=== PATIENT | male | born 1930 | race Caucasian/White ===

== ENCOUNTER 2016-12-02 14:08 | Inpatient (IN) | payer MEDICARE, OTHER ==
[~2016-12-02] VITALS: Ht 182.9 cm; Wt 73.8 kg
[2016-12-02] VITALS (8 sets, daily range): BP systolic 113–169; BP diastolic 51–80; PULSE 67–126; RESP 18–30; O2SAT 88–98
[~2016-12-02 14:08] MED LIST: AMLO2.5T PO; B-CA1TAB PO; CARB1TAB14 PO; CEFU500T61 PO; ENTA200T6 PO; FERR324T2 PO; LACT-38 PO; LORA10CA PO; MEMA28CA PO; METO25TA99 PO; RIVA1PAT13 TRANSDERM; TAMS0.4C98 PO; WARF5TAB7 PO
--- NOTE | 2016-12-02 15:03 | ED.REPORT ---
HPI-General Illness Date of Service Dec 02, 2016 ED Provider: Dr. Razo Pt is an 86 year old male with a hx of dementia, Parkinson's, afib (not on Warfarin), HTN , CAD, and frequent UTI from catheter presenting to the ED via EMS complaining of worsening SOB onset at about 1100 this morning. His home caregiver went to his house today to change his Duval catheter and found him to be SOB with rhonchi. She also states that his urine was cloudy. Denies previous similar symptoms, chest pain, abdominal pain, or any other symptoms at this time. His daughter reports that he gets congested from his Parkinson's but it doesn't usually affect his breathing. He now feels a bit better after medics gave nebulizers with Solu-Medrol en route. Denies any recent falls, head trauma , or any other injury. His daughter states that he usually does have some confusion when he has a UTI. Nursing Notes Stated Complaint: NEW ONSET SHORTNESS OF BREATH Chief Complaint: Respiratory Distress Nursing Notes Reviewed: Yes Allergies: Coded Allergies: No Known Allergies (Unverified Allergy, Unknown, 07/22/15) Scheduled Amlodipine (Amlodipine) 2.5 Mg Tablet 2.5 MG PO DAILY Carbidopa/Levodopa 25-100 mg (Carbidopa/Levodopa 25-100 mg) 1 Each Tablet 1 TABLET PO BID in AM and 1400 Carbidopa/Levodopa 25-100 mg (Carbidopa/Levodopa 25-100 mg) 1 Each Tablet 2 TABLET PO daily at 1800 Entacapone (Entacapone) 200 Mg Tablet 200 MG PO BID AM and 1400 Finasteride (Finasteride) 5 Mg Tablet 5 MG PO DAILY Lactose-Free Food (Ensure Plus) 237 Ml Liquid 237 ML PO TID Memantine HCl (Namenda-XR) 28 Mg Cap.spr.24 28 MG PO QPM Metoprolol Succinate ER (Metoprolol Succinate ER) 25 Mg Tab.er.24h 25 MG PO QPM Quetiapine Fumarate (Seroquel) 25 Mg Tablet 75 MG PO HS Rivastigmine (Rivastigmine) 13.3 Mg/24 Hour Patch.td24 2 PATCH TRANSDERM DAILY Sennosides (Senna) 8.6 Mg Tablet 25.8 MG PO DAILY Scheduled PRN Oxybutynin Chloride ER (Oxybutynin Chloride ER) 5 Mg Tab.er.24 5 MG PO DAILY PRN PRN BLADDER SPASM General Time Seen by MD: 15:03 Chief Complaint Other (SOB) Hx Obtained From: Patient, Daughter, EMS Arrived By: Ambulance Sudden in Onset?: No Onset Occurred: 1 - 4 hours ago Symptom Duration: Since onset Severity: Current: No pain currently Severity: Maximum: No pain Recent Healthcare: No recent doctor visit, No recent hospitalization Similar Sx Previous: No Past Medical History Past Medical History Parkinson's disease History of aspiration pneumonia BPH Gout Reports: Coronary artery disease, Hypertension Reports: Atrial fibrillation, Dementia, Depression Past Surgical History Skin graft Reports: Cataract surgery, Tonsillectomy Smoking History Former Smoker Social History Lives with daughter and son in law Alcohol Use: "Social" Drug Use: Denies drug use Ambulatory Status Independent Review of Systems Cloudy urine Full Review of Systems Constitutional: Denies: Fever Respiratory: Reports: Shortness of breath Cardiovascular: Denies: Chest pain GI: Denies: Abdominal pain, Vomiting Complete sys rev & neg: except as marked. Physical Exam Nursing note and vitals reviewed. Constitutional: Well-developed, well-nourished. Not diaphoretic. Head: Normocephalic and atraumatic. Elderly somewhat ill appearing, sitting up in bed. No acute distress. Mouth/Throat: Oropharynx is clear, mucus membranes slightly dry. No oropharyngeal exudate. Eyes: EOM are normal. Pupils are equal, round, and reactive to light. Neck: Supple, no tracheal deviation. Cardiovascular: Normal rate, regular rhythm. Equal and intact distal pulses throughout. Pulmonary/Chest: Effort normal and breath sounds normal. No respiratory distress. Abdominal: Soft. No distension. There is no tenderness, rebound, or guarding. Bowel sounds present. Musculoskeletal: Range of motion grossly intact, moving all extremities. No peripheral edema or tenderness appreciated. Neurological: AOx1. Grossly nonfocal exam. Strength and sensation intact and equal to bilateral upper and lower extremities. Skin: Warm and dry, no rashes or pallor appreciated. Psychiatric: Appropriate mood and affect. Behavior appears normal. Vital Signs Vital Signs Date Time Temp Pulse Resp B/P Pulse Ox O2 Delivery O2 Flow Rate FiO2 12/02/16 17:14 77 24 117/68 97 Nasal Cannula 4 12/02/16 15:31 91 23 113/51 92 Simple Mask 3 12/02/16 14:18 37.6 126 30 169/80 88 Room Air Initial VS: Reviewed Interpretation & Diagnostics Lab Results Interpretation Result Diagram: 12/02/16 1514 12/02/16 1514 Test 12/02/16 14:29 12/02/16 14:39 12/02/16 15:14 12/02/16 15:57 Urine Color Yellow (YELLOW) Urine Appearance Cloudy (CLEAR,HAZY) Urine pH 6.0 (5.0-8.0) Urine Specific [place] 1.020 (1.003-1.035) Urine Protein 30mg/dL (NEG,TRACE) Urine Glucose (UA) Negativemg/dL (NEGATIVE) Urine Ketones Negativemg/dL (NEGATIVE) Urine Occult Blood Moderate (NEGATIVE) Urine Nitrite Positive (NEGATIVE) Urine Bilirubin Negative (NEGATIVE) Urine Urobilinogen Normalmg/dL (NORMAL) Urine Leukocyte Esterase Large (NEGATIVE) Urine RBC 3-10/hpf (0-2) Urine WBC >50/hpf (0-5) Urine Epithelial Cells Few/hpf (NONE-MOD) Urine Crystals None seen (NONE SEEN) Urine Bacteria Many/hpf (NONE-FEW) Urine Hyaline Casts None/lpf (NONE) Urine Granular Casts None seen (NONE SEEN) Urine Waxy Casts None seen (NONE SEEN) Urine Red Blood Cell Casts None seen (NONE SEEN) Urine White Blood Cell Casts None seen (NONE SEEN) Urine Mucus None seen (None Seen) Urine Trichomonas None seen (NONE SEEN) Urine Yeast None (NONE SEEN) Urinalysis Comment None Urine Culture Reflexed Indicated White Blood Count 5.3th/mm3 (3.8-10.1) Red Blood Count 3.83mil/mm3 (4.40-5.80) Hemoglobin 12.1g/dL (13.8-17.2) Hematocrit 36.0% (41.0-50.0) Mean Corpuscular Volume 94.0fL (81-100) Mean Corpuscular Hemoglobin 31.6pg (27.0-35.0) Mean Corpuscular Hemoglobin Concent 33.6% (32.0-37.0) Red Cell Distribution Width 13.8% (12.3-15.4) Platelet Count 228bil/L (150-400) Neutrophils (%) (Auto) 88.5% (40-74) Lymphocytes (%) (Auto) 6.4% (14-46) Monocytes (%) (Auto) 4.7% (4-12) Eosinophils (%) (Auto) 0.2% (0-5) Basophils (%) (Auto) 0% (0-3) Sodium Level 135mEq/L (134-144) Potassium Level 3.9mEq/L (3.5-5.2) Chloride Level 97mEq/L (97-108) Carbon Dioxide Level 20mmol/L (18-29) Blood Urea Nitrogen 20mg/dL (8-27) Creatinine 0.85mg/dL (0.76-1.27) Estimat Glomerular Filtration Rate 91mL/min (>59) Glucose Level 157mg/dL (60-99) Calcium Level 8.7mg/dL (8.5-10.1) Magnesium Level 1.7mg/dL (1.6-2.6) Total Bilirubin 0.8mg/dL (0.0-1.2) Aspartate Amino Transf (AST/SGOT) 13U/L (0-50) Alanine Aminotransferase (ALT/SGPT) 7U/L (0-44) Alkaline Phosphatase 75U/L (25-160) Troponin T < 0.010ug/L (0.0-0.011) Pro-B-Type Natriuretic Peptide 1980pg/mL (0-486) Total Protein 7.2g/dL (6.4-8.4) Albumin 3.1g/dL (3.4-5.0) Prealbumin 13mg/dL (20-40) Procalcitonin 0.68ng/mL (0.00-0.08) Prothrombin Time 13.0sec (8.1-12.5) Prothromb Time International Ratio 1.21ratio Activated Partial Thromboplast Time 28.2sec (22.8-33.0) ECG Interpretation ECG Interpretation: Afib. RBBB and LAFB. Inferior infarct, old. No significant change from previous. Otherwise as advertised. Time: 14:54 Interpreted by: ED physician Normal ECG Interpretation: Normal rate (89) ECG Interpretation: Afib. RBBB and LAFB. Inferior infarct, old. No significant change from previous. Otherwise as advertised. Time: 17:56 Interpreted by: ED physician Normal ECG Interpretation: Normal rate (84) Repeat ECG: Repeat ECG unchanged X-Ray Chest Interpretation Chest Xray Interpretation: IMPRESSION: No left hilar airspace disease is suspicious for pneumonia. There may be a trace left-sided pleural effusion and/or mild atelectasis. Dictated by: Iraj Albright M.D. on 12/02/2016 at 15:03 View: Portable, 1 view Interpretation / Wet Read by: Interpret - Radiologist Re-Eval/Medical Decision Med Decision/Clinical Course 86-year-old male presenting to the ED for evaluation of increasing dyspnea, concern for acting differently than normal. Grossly positive urine consistent with infection. Lactic acid of 3. WBC count normal although he does have a left shift. Initial Troponin negative. Chest x-ray demonstrates findings consistent with pneumonia. Patient started on antibiotics here in the emergency department, given IV fluids. I suspect that he is somewhat dehydrated as well. Plan admission for further evaluation and management. Time of Eval: 16:00 Patient Status: Condition improved Re-Evaluation/Progress Note: Discussed plan for admission. Pt understands and agrees with plan. Consultation : Referral / Consult Name: Jorge L Groves Consulted With: Hospitalist Call Returned at: 17:56 Depilatory Painter: Will see patient, Agrees with plan, Accepts admit Counseled Regarding: Diagnosis, Lab results, Need for follow-up, When/why to return to ED Discharge & Departure Primary Impression: Acute respiratory failure with hypoxia Additional Impressions: UTI (urinary tract infection) Pneumonia Disposition: ADMITTED TO HOSPITAL Discharge Condition All VS Reviewed: Yes Condition: Improved Referrals: Shayla Go (PCP) Kellie Attestation Portions of this note were transcribed by Erlinda Avilez. I, Dr. Razo personally performed the history, physical exam and medical decision-making; I reviewed and confirmed the accuracy of the information in the transcribed note. Signed by: Kellie Benz, 12/02/2016 at 2706. copies to: Shayla Go William B MD Dec 02, 2016 15:03 ERLINDA AVILEZ Dec 02, 2016 15:21
[2016-12-02 15:20] LABS: BASOPHILS % (AUTO) 0 % (0-3); EOSINOPHILS % (AUTO) 0.2 % (0-5); MONOCYTES % (AUTO) 4.7 % (4-12); Mean Corpuscular Hemoglobin 31.6 pg (27.0-35.0); NEUTROPHILS % (AUTO) 88.5 % (40-74); Platelet Count 228 bil/L (150-400)
[2016-12-02] MEDS ORDERED: 0.9% Sodium Chloride 500 ML IV ONE (15:26)
[2016-12-02 15:32] LABS: APPEARANCE,URINE CLOUDY (CLEAR,HAZY); COLOR,URINE YELLOW (YELLOW); OCCULT BLOOD,URINE MODERATE (NEGATIVE); UROBILINOGEN,URINE NORMAL (NORMAL)
[2016-12-02 15:42] LABS: TROPONIN T < 0.010 ug/L (0.0-0.011)
[2016-12-02 15:52] LABS: Magnesium 1.7 mg/dL (1.6-2.6)
--- NOTE | 2016-12-02 16:06 | DRSVH ---
PROCEDURE: X-RAY CHEST ONE VIEW, PORTABLE ([id number]) INDICATIONS: Respiratory distress TECHNIQUE: One view of the chest was acquired. COMPARISON: [facility], CR, XR CHEST 1VW (PORTABLE), 09/14/2015, 21:43. FINDINGS: Surgical changes and devices: None. Lungs and pleura: There has been interval development of prominent perihilar airspace disease. There may be mild left basilar atelectasis and/or small effusion. There is blunting of the left costophre amanda angle. Aeration of the right lung is within normal limits. Air under the diaphragm on the right is felt to be related to superimposed colon. There is mild scarring within the lung apices. Mediastinum: Mediastinal contours appear normal. Heart size is borderline enlarged. There is aorti c atherosclerosis. Bones and chest wall: No suspicious bony lesions. Degenerative changes of the imaged spine and shou lders are not well characterized, but appear similar to the previous exam. Overlying soft tissues ap pear unremarkable. IMPRESSION: No left hilar airspace disease is suspicious for pneumonia. There may be a trace left-si ded pleural effusion and/or mild atelectasis. Dictated by: Iraj Albright M.D. on 12/02/2016 at 15:03 Approved by: Iraj Albright M.D. on 12/02/2016 at 15:05
[2016-12-02] MEDS ORDERED: Levofloxacin 750 mg/150 mL D5W IV ONE (16:15)
[2016-12-02 16:23] LABS: INR 1.21 ratio
[2016-12-02] MEDS ORDERED: QUET25TA PO (18:57)
[2016-12-02] MEDS ORDERED: OXYB5TAB PO (18:57)
[2016-12-02] MEDS ORDERED: SENN-133 PO (18:57)
[2016-12-02] MEDS ORDERED: FINA5TAB9 PO (18:57)
--- NOTE | 2016-12-02 20:28 | PCM.HPMED ---
Subjective Date of Service Dec 02, 2016 Primary Provider: Admitting Physician: Jorge L Groves Primary Care Physician: Shayla Go Attending Physician: Jorge L Groves Admit Status: From the Emergency Department Chief Complaint: Shortness of breath, dyspnea, respiratory distress for 30 minutes prior to presenting to the ED today History of Present Illness: Pt is an pleasantly demented 86 Y/O M with a hx of dementia, Parkinson's, A-fib (not anticoagulated on Warfarin), HTN , CAD, and frequent UTI from indwelling Duval catheter, who presented to the ED with complaint of of acute onset SOB, dyspnea, respiratory distress onset at about 1100 this morning. His home caregiver went to his house today to change his Duval catheter and found that he became SOB while changing his Duval. She reportedly heard rhonchi on lung auscultation. This all occurred while patient was at rest. The diorama model maker also reported that the patient's urine was very cloudy. The patient and family members denies previous similar history of such respiratory symptoms. Patient denied, history of COPD, history of home oxygen use, history of asthma, fevers, chills, sweats, headache, sore throat, history of TB or family history of TB, recent travel, recent hospitalizations or nursing home facilities, chest pain , abdominal pain, constipation, diarrhea.His daughter Dary reports that he gets congested from his Parkinson's but it doesn't usually affect his breathing. Patient has a chronic cough productive of clear mucus, which has been his baseline for quite some time. He now feels a bit better after medics gave nebulizers with Solu-Medrol en route. Denies any recent falls, head trauma, or any other injury. His daughter states that he usually does have some confusion when he has a UTI. Of note patient was hospitalized with pneumonia approximately 6 months ago. He sleeps at 35 angle with head of bed elevated. He describes it being hard to breathe if he lays down. But denies paroxysmal nocturnal dyspnea. In the ED patient was diagnosed with pneumonia and urinary tract infection, and was placed on levofloxacin 750 mg IV once, CXR: New left hilar airspace disease is suspicious for pneumonia. There may be a trace left-sided pleural effusion and/or mild atelectasis. Vital signs on presentation in the ED: Temperature 37.6, pulse 126, respiratory rate 30, blood pressure 169/80, pulse ox 88% on room air. Current vitals are temperature 36.6, pulse 83, respiratory rate 22, blood pressure 126/67, satting 90% on 3 L nasal cannula Hemogram showed: WBC 5.3, PMNs 88.5%, lymphs 6.4%, H/H 12.1/36.0, MCV 94, MCH 31.6, MCHC 33.6, platelets 228 PT/INR 13.0/1.21 UA was positive for leukocyte esterase, nitrite, bacteria, and white blood cells greater than 50 per high-power field Review of Systems: A comprehensive review of systems was conducted and was negative except as mentioned in history of present illness. Allergies Coded Allergies: No Known Allergies (Unverified Allergy, Unknown, 07/22/15) Home Medications Amlodipine (Amlodipine) 2.5 Mg Tablet 2.5 MG PO DAILY B-Carotene/C/E/Lut/Mn Cmb 29 (Macuvite with Lutein Tablet) 1 Each Tablet 1 EACH PO DAILY Carbidopa/Levodopa 25-100 mg (Carbidopa/Levodopa 25-100 mg) 1 Each Tablet 1 TABLET PO BID in AM and 1400 Carbidopa/Levodopa 25-100 mg (Carbidopa/Levodopa 25-100 mg) 1 Each Tablet 2 TABLET PO daily at 1800 Cefuroxime Axetil (Cefuroxime) 500 Mg Tablet 500 MG PO BID Entacapone (Entacapone) 200 Mg Tablet 200 MG PO BID AM and 1400 Ferrous Sulfate (Ferrous Sulfate) 324 Mg Tablet.dr 324 MG PO DAILY Lactose-Free Food (Ensure Plus) 237 Ml Liquid 237 ML PO TID Loratadine (Claritin) 10 Mg Capsule 10 MG PO daily at 1400 Memantine HCl (Namenda-XR) 28 Mg Cap.spr.24 28 MG PO QPM Metoprolol Succinate ER (Metoprolol Succinate ER) 25 Mg Tab.er.24h 25 MG PO QPM Rivastigmine (Rivastigmine) 13.3 Mg/24 Hour Patch.td24 2 PATCH TRANSDERM DAILY Tamsulosin (Flomax) 0.4 Mg Capsule 0.4 MG PO DAILY Oxybutynin Quetiapine PMH Parkinson's disease History of aspiration pneumonia BPH Gout Coronary artery disease, Hypertension Atrial fibrillation, Dementia, Depression Surgical History Skin graft Reports: Cataract surgery, Tonsillectomy Family History Brother with Parkinson's disease Social History Hx Alcohol Use: Yes (occasional, not current) Hx Substance Use: No Hx Tobacco Use: No Smoking Status: Former Smoker (smoked for 25 years) Living Arrangement: with Family (lives with daughter Ivana and his son-in-law Rao [phone]) Exam Vital Signs Vital Sign - Last Date Time Temp Pulse Resp B/P Pulse Ox O2 Delivery O2 Flow Rate FiO2 12/02/16 19:52 36.6 83 22 126/67 98 Nasal Cannula 3.00 Exam General: Patient appears age-appropriate, in no acute distress, resting comfortably in bed, able to answer questions appropriately. Is mildly demented HEENT: NC/AT, eyes pinpoint pupil, PERRLA, EOMI, neck, soft supple, no adenopathy, no JVD, no masses, no thyromegaly, throat mucous membranes pink and Dry, no erythema, no exudates, no tonsillar swelling, no uvular deviation. Edentulous upper and lower Lungs: Bilateral lower base crackles, severe rhonchi heard diffusely, no use of accessory muscles of respiration, moderate air movement Heart: Regular rate and rhythm, no murmur, Abdomen: Soft, nontender, nondistended, bowel sounds active, no rebound, no guarding, Genitourinary: No CVA tenderness, no suprapubic tenderness, Duval catheter in place and draining very dark colored urine, Extremities: pulses equal and symmetric upper/lower extremity including radial and dorsalis pedis, no edema Neurologic: Appears grossly neurologically intact, no focal neurological signs. Skin: Dry and appears mildly dehydrated with tenting and no rash Lab and Diagnostics Result Diagram: 12/02/16 1514 12/02/16 1514 X-Rays, CTs and MRIs Date of Service: 12/02/16 1435 PROCEDURE: X-RAY CHEST ONE VIEW, PORTABLE Surgical changes and devices: None. Lungs and pleura: There has been interval development of prominent perihilar airspace disease. There may be mild left basilar atelectasis and/or small effusion. There is blunting of the left costophrenic angle. Aeration of the right lung is within normal limits. Air under the diaphragm on the right is felt to be related to superimposed colon. There is mild scarring within the lung apices. Mediastinum: Mediastinal contours appear normal. Heart size is borderline enlarged. There is aortic atherosclerosis. Bones and chest wall: No suspicious bony lesions. Degenerative changes of the imaged spine and shoulders are not well characterized, but appear similar to the previous exam. Overlying soft tissues appear unremarkable. IMPRESSION: No left hilar airspace disease is suspicious for pneumonia. There may be a trace left-sided pleural effusion and/or mild atelectasis. Dictated by: Iraj Albright M.D. on 12/02/2016 at 15:03 Approved by: Iraj Albright M.D. on 12/02/2016 at 15:0 Assessment & Plan This is a pleasant 86-year-old male with history of dementia, Parkinson's disease and A. fib not on warfarin with frequent UTIs and indwelling catheter who presented to the ED with acute onset shortness of breath dyspnea and respiratory distress that lasted approximately 30 minutes to an hour and improved with nebulizer therapy and Solu-Medrol. She was found to have UTI and chest x-ray suspicious for pneumonia. Patient was admitted for IV antibiotics and medical management. Current vitals are temperature 36.6, pulse 83, respiratory rate 22, blood pressure 126/67, satting 90% on 3 L nasal cannula # Acute respiratory distress with hypoxia, present on admission, improved - Patient currently satting in the upper 90s on 3 L nasal cannula - Temperature 37.6, pulse 126, respiratory rate 30, blood pressure 169/80, pulse ox 88% on room air. - O2 to keep oxygen at 93% or above, patient has no history of COPD - Albuterol nebs every 4 hours while awake. - Mucinex expectorant #severe sepsis, POA -RR30, HR 126 on arrival -lactic acid 4 -secondary to UTI / pna treat as below # Pneumonia, community-acquired, present on admission, active -CXR: New left hilar airspace disease is suspicious for pneumonia (reviewed by admitting team). There may be a trace left-sided pleural effusion and/or mild atelectasis. -Hemogram showed: WBC 5.3, PMNs 88.5%, lymphs 6.4%, H/H 12.1/36.0, MCV 94, MCH 31.6, MCHC 33.6, platelets 228 -We will order CBC with Diff, CMP, AM draw -Sputum ordered and pending -Blood Cx X 2 -Procalcitonin -Levoquin 750 mg daily -Acetominophen for Fever control -Legionella urine antigen, and Strep pneumonia urine antigen -Viral PCR (biofire) -MRSA screen ordered and pending -Influenzae A/B -Mucinex # Elevated Lactic acid, active - Lactate 4.4 - IV normal saline at 100 mL per hour - We will trend lactic acid every 2 hours till normal - Blood cultures ordered and pending 2 # Dehydration, present on admission, active - Mucous membranes are very dry on exam - We will start IV fluids at 100 mL per hour - Family members deny any known history of CHF # Urinary tract infection, present on admission, active - UA was positive for leukocyte esterase, nitrite, bacteria, and white blood cells greater than 50 per high-power field - Patient has indwelling Duval catheter is changed weekly by home health nurse -We will continue medication levofloxacin was started in the ED as previously stated # Anemia, normocytic normochromic, present on admission, active -H/H.1/36.0 #Hyperglycemia, present on admission, active - Blood glucose 157 - Hemoglobin A1c ordered and pending Chronic problems Parkinson's disease - We will continue home Parkinson's medication - History of aspiration pneumonia - We will get speech, OT and swallow eval's -Current diet Pureed BPH - Indwelling Duval catheter changed weekly - Hold oxybutynin for now - Continue home medication tamsulosin 0.4 mg Gout, presumed stable Coronary artery disease, presumed stable Hypertension - We will continue metoprolol ER 25 mg daily Atrial fibrillation, - We will continue metoprolol ER 25 mg daily - Remote telemetry Dementia, presumed stable Depression, presumed stable - We will continue home medication quetiapine Disposition: Admitted to in patient service with expected length of stay greater than 2 days, secondary to severity of presenting symptoms, treatment plan, complexity of clinical work up, and risk of adverse events. CODE STATUS: DNR/DNI PCP: Shayla Go DVT PE prophylaxis: SubQ heparin Q8H Contact: Prem DYE [phone]--> to Rao son-in-law Daughter [phone] VTE Prophylaxis: Sub-Q Heparin (Unfractionated) Resuscitation Status: DNR/DNI:Do Not Resuscitate/Intubate Attending Statement The patient was seen and examined together with house staff on 12/02/2016 and I agree with the history, exam and plan as outlined in the note above. Bob Quiñones DO Dec 02, 2016 20:28 Erin Chau DO Dec 03, 2016 05:10
[2016-12-02] MEDS ORDERED: Polyethylene Glycol (PEG) 17 Gm Powder PO PRN (20:30)
[2016-12-02] MEDS ORDERED: Alum-Mag Hydrox-Simeth 30 mL Suspension PO PRN (20:30)
--- NOTE | 2016-12-02 21:30 | NUR ---
admit note Pt is admitted to room 3011 around 19:30 from ED for UTI/PNA/acute hypoxic respiratory syndrome, accompanied by his daughter, Dary. Pt is alert, oriented to self only. Forgetful and intermittently confused per daughter. Pt has intermittent, productive, and congested cough with yellow thick phlegm; sputum sample sent to the lab. SpO2 in high 90s on 3L, denies SOB. 2PA to BSC; unsteady gait due to parkinson's disease. Pt has dysphagia and normally drinks thickened liquid. took meds whole in apple sauce. tolerated well. given thickened water but gulped a big amount and coughed. Pt tolerated thickened liquid given on a spoon. Resident in to see the patient. Dary Guallpa answered admit questions. aletha bed alarm on for safety.
[2016-12-02] MEDS: MEMANTINE 28 MG PO SCH (21:34)
[2016-12-02] MEDS: Albuterol-Ipratropium 3 mL Inhalation Solution NEB SCH (21:53)
--- NOTE | 2016-12-02 22:42 | NUR ---
Code status Pt's daughter and POA, Ivana called this RN and said that she has talked to her sisters about pt's code status and concurred that pt will be DNR/DNI. Dr. Quiñones was notified.
[2016-12-02] MEDS: MeTOProlol XL 25 mg ER24 Tablet PO SCH (22:52)
[2016-12-03] VITALS (13 sets, daily range): BP systolic 109–134; BP diastolic 55–77; PULSE 58–86; RESP 18–24; O2SAT 91–99
[2016-12-03] MEDS: Heparin 5,000 Unit/mL Inj SUBQ SCH ×3 (00:21→17:22)
[2016-12-03] MEDS: 0.9% Sodium Chloride 1,000 ML IV SCH ×3 (00:21→20:29)
--- NOTE | 2016-12-03 01:28 | NUR ---
vincent/skin HH RN didn't get to change pt's vincent due to SOB today. pt has 22Fr silicone vincent catheter. vincent was changed with same size, silicone catheter; pt tolerated procedure well. vincent draining yellow, cloudy urine. noted 3 open areas to R buttock. Daughter stated that they have been putting cream on them since dressing is contraindicated due to pt being incontinent of stool at times. Pressure ulcer protocol is initiated. Pt is turned Q2hrs. calmoseptine applied to R buttock. on SANIYA bed.
[2016-12-03 06:43] LABS: BASOPHILS % (AUTO) 0 % (0-3); EOSINOPHILS % (AUTO) 0 % (0-5); MONOCYTES % (AUTO) 4.7 % (4-12); Mean Corpuscular Hemoglobin 31.3 pg (27.0-35.0); Mean Corpuscular Volume 93.2 fL (81-100); NEUTROPHILS % (AUTO) 91.5 % (40-74); Platelet Count 209 bil/L (150-400)
[2016-12-03] MEDS: Albuterol-Ipratropium 3 mL Inhalation Solution NEB SCH ×4 (07:42→20:35)
[2016-12-03] MEDS ORDERED: levoFLOXacin Inj 750 MG in IV Premix 1 EACH IV SCH ×2 (08:30→14:30)
[2016-12-03] MEDS: Piperacillin-Tazo 3.375 Gm Inj 3.375 GM in Dextrose 5% Minibag Plus 50 ML IV SCH ×2 (09:16→17:17)
[2016-12-03] MEDS: RIVASTIGMINE 13.3 MG/24 HR TOPICAL SCH (09:19)
--- NOTE | 2016-12-03 09:30 | NUR ---
O2 Pt resting quietly, sts is "drowsy" when asked. O2 sats are 99% on 1 L. O2 removed, pt sating 97% on RA. Encouraged to deep breathe and cough at time of assessment. Productive cough when sitting up however pt swallowing sputum. HOB upright for meds in sauce, Call light in place, will continue to monitor.
[2016-12-03] MEDS: Entacapone 200 mg Tablet PO SCH ×2 (10:20→17:17)
--- NOTE | 2016-12-03 11:38 | NUR ---
Home Meds Home medication brought in by Dary (daughter). Taken to pharmacy, verified and placed in med drawer outside room. Daughter is visiting at bedside, call light in place, will continue to monitor.
--- NOTE | 2016-12-03 13:25 | PCM.PNMED ---
Subjective Date of Service Dec 03, 2016 Subjective Patient seen and examined today. Lying comfortably in bed. Saturating well on nasal canula. Vitals stable. Exam Vital Signs Vital Sign - Last Date Time Temp Pulse Resp B/P Pulse Ox O2 Delivery O2 Flow Rate FiO2 12/03/16 11:20 63 18 95 Room Air 12/03/16 10:05 36.2 127/77 12/03/16 07:40 1.00 Intake and Output 12/02/16 12/02/16 12/03/16 Cumulative From/Thru 15:00 23:00 07:00 12/02/16 14:18 - 12/03/16 06:43 Intake Total 100 ml 550 ml 592 ml 1242 ml Output Total 2050 ml 2050 ml Balance 100 ml 550 ml -1458 ml -808 ml Intake Oral 0 ml 0 ml IV Total 100 ml 550 ml 592 ml 1242 ml Output Urine Total 2050 ml 2050 ml # Bowel Movements 0 0 Exam General: Patient appears age-appropriate, in no acute distress, resting comfortably in bed, able to answer questions appropriately. Is mildly demented HEENT: NC/AT, eyes pinpoint pupil, PERRLA, EOMI, neck, soft supple, no adenopathy, no JVD, no masses, no thyromegaly, throat mucous membranes pink and Dry, no erythema, no exudates, no tonsillar swelling, no uvular deviation. Edentulous upper and lower Lungs: Bilateral lower base crackles, severe rhonchi heard diffusely, no use of accessory muscles of respiration, moderate air movement Heart: Regular rate and rhythm, no murmur, Abdomen: Soft, nontender, nondistended, bowel sounds active, no rebound, no guarding, Genitourinary: No CVA tenderness, no suprapubic tenderness, Duval catheter in place and draining very dark colored urine, Extremities: pulses equal and symmetric upper/lower extremity including radial and dorsalis pedis, no edema Neurologic: Appears grossly neurologically intact, no focal neurological signs. Skin: Dry and appears mildly dehydrated with tenting and no rash Lab and Diagnostics Result Diagram: 12/03/16 0628 12/03/16 0628 X-Rays, CTs and MRIs Date of Service: 12/02/16 1435 PROCEDURE: X-RAY CHEST ONE VIEW, PORTABLE Surgical changes and devices: None. Lungs and pleura: There has been interval development of prominent perihilar airspace disease. There may be mild left basilar atelectasis and/or small effusion. There is blunting of the left costophrenic angle. Aeration of the right lung is within normal limits. Air under the diaphragm on the right is felt to be related to superimposed colon. There is mild scarring within the lung apices. Mediastinum: Mediastinal contours appear normal. Heart size is borderline enlarged. There is aortic atherosclerosis. Bones and chest wall: No suspicious bony lesions. Degenerative changes of the imaged spine and shoulders are not well characterized, but appear similar to the previous exam. Overlying soft tissues appear unremarkable. IMPRESSION: No left hilar airspace disease is suspicious for pneumonia. There may be a trace left-sided pleural effusion and/or mild atelectasis. Dictated by: Iraj Albright M.D. on 12/02/2016 at 15:03 Approved by: Iraj Albright M.D. on 12/02/2016 at 15:0 Assessment & Plan This is a pleasant 86-year-old male with history of dementia, Parkinson's disease and A. fib not on warfarin with frequent UTIs and indwelling catheter who presented to the ED with acute onset shortness of breath dyspnea and respiratory distress that lasted approximately 30 minutes to an hour and improved with nebulizer therapy and Solu-Medrol. She was found to have UTI and chest x-ray suspicious for pneumonia. Patient was admitted for IV antibiotics and medical management. # Acute respiratory distress with hypoxia, present on admission, improved - Patient currently satting in the upper 90s on 3 L nasal cannula - O2 to keep oxygen at 93% or above, patient has no history of COPD - Albuterol nebs every 4 hours while awake. - Mucinex expectorant #severe sepsis, POA -RR30, HR 126 on arrival -lactic acid 4.4>2.3 -secondary to UTI / pna treat as below # Pneumonia, community-acquired, present on admission, active -CXR: New left hilar airspace disease is suspicious for pneumonia (reviewed by admitting team). There may be a trace left-sided pleural effusion and/or mild atelectasis. -Elevatd white count12.7 -Sputum ordered and pending -Blood Cx X 2 -Procalcitonin 7.94 -Levoquin 750 mg given at admission along with Zosyn. Zosyn coverage is broader and covers the same spectrum as levoquin. Will continue Zosyn. -awaiting MRSA swab, if positive will start vancomycin -Acetominophen for Fever control -Legionella urine antigen, and Strep pneumonia urine antigen -Viral PCR (biofire) -Influenzae A/B -Mucinex # Elevated Lactic acid, at admission, normalized - Lactate 4.4 at admission - IV normal saline at 100 mL per hour - Blood cultures ordered and pending 2 # Dehydration, present on admission, active - Mucous membranes are very dry on exam - We will start IV fluids at 100 mL per hour - Family members deny any known history of CHF # Urinary tract infection, present on admission, active - UA was positive for leukocyte esterase, nitrite, bacteria, and white blood cells greater than 50 per high-power field - Patient has indwelling Duval catheter is changed weekly by home health nurse - will continue zosyn # Anemia, normocytic normochromic, present on admission, active -H/H.1/36.0 #Hyperglycemia, present on admission, active - Blood glucose 157 - Hemoglobin A1c ordered and pending Chronic problems Parkinson's disease - We will continue home Parkinson's medication - History of aspiration pneumonia - We will get speech, OT and swallow eval's -Current diet Pureed BPH - Indwelling Duval catheter changed weekly - Hold oxybutynin for now - Continue home medication tamsulosin 0.4 mg Gout, presumed stable Coronary artery disease, presumed stable Hypertension - We will continue metoprolol ER 25 mg daily Atrial fibrillation, - We will continue metoprolol ER 25 mg daily - Remote telemetry Dementia, presumed stable Depression, presumed stable - We will continue home medication quetiapine Disposition: Admitted to in patient service with expected length of stay greater than 2 days, secondary to severity of presenting symptoms, treatment plan, complexity of clinical work up, and risk of adverse events. CODE STATUS: DNR/DNI PCP: Shayla Go DVT PE prophylaxis: SubQ heparin Q8H Contact: Prem DYE [phone]--> to Rao son-in-law Daughter [phone] VTE Prophylaxis: Sub-Q Heparin (Unfractionated) Resuscitation Status: DNR/DNI:Do Not Resuscitate/Intubate Time spent 60mins Lars Barr MD Dec 03, 2016 13:25
--- NOTE | 2016-12-03 15:23 | NUR ---
Social Work-initial assessment: Data:See initial assessment. Pt is 86 y/o male who was admitted for acute hypoxic per H&P. Pt's insurance is [employer] and [employer] and PCP is KRIS Patterson. EMR reviewed. JOSUE placed a call to daughter Ivana and spoke with daughter Dary,JOSUE role explained. Pt resides at home with Ivana and her who provide 24/7 care. Pt uses a fww at baseline and does not drive. Pt has vincent catheter at baseline. Pt is currently open with [facility] for RN and JOSUE DESAI to await MD orders to contact services. Pt has no SNF history. Pt has no intermediate manager care insurance or VA benefits. Pt has completed DPOA/ advanced directive, JOSUE encouraged a copy to be brought in. JOSUE left copy of Discharge planning checklist in room. Phone number placed on white board in room. Pt's daughters to provide transport home. JOSUE will continue to follow. Assessment:Pt who would benefit from . Plan:Pt to discharge home with family to provide 24/7 care when medically stable via POV. Pt is open with JOSUE Noel to await MD orders to contact [facility]. JOSUE will continue to follow. NAVIN Coronado Addendum: 12/03/16 at 1528 by DAMARIS BHAT Amended: Links added.
--- NOTE | 2016-12-03 17:44 | NUR ---
PO intake/O2 Pt has rested quietly through out the day, declined lunch stating was "just too tired". Consumed pudding for afternoon snack. Did consume dinner however was encouraged to eat as pt was not wanting to "eat much". Pt requests thickened water quite often however does cough afterwards. Pt is able to clear oral cavity afterwards by spitting out what appears to be sputum. Pt has remained on RA, stating 96 to 98%. Sats seem to decrease to 93 % when sitting bolt upright however when HOB is lowered slightly, sats recover quickly to the mid to upper 90s. Call light in place with intentional rounding.
--- NOTE | 2016-12-03 18:16 | NUR ---
Transfer of care This RN inherited pt at 1800. Pt denies pain. Receiving IV abx PEEWEE. Pt on continuous pulse ox, sating 88-92% on RA. Pt placed back on 0.5L of O2 via NC. Bed in low position ,upper rails up, call light in reach. Will continue to monitor.
[2016-12-03] MEDS: MEMANTINE 28 MG PO SCH (20:21)
[2016-12-03] MEDS: MeTOProlol XL 25 mg ER24 Tablet PO SCH (20:22)
[2016-12-04] VITALS (12 sets, daily range): BP systolic 125–163; BP diastolic 61–78; PULSE 72–97; RESP 16–20; O2SAT 91–99
[2016-12-04] MEDS: Heparin 5,000 Unit/mL Inj SUBQ SCH ×3 (00:36→17:25)
[2016-12-04] MEDS: 0.9% Sodium Chloride 1,000 ML IV SCH ×3 (00:36→21:59)
[2016-12-04] MEDS: Piperacillin-Tazo 3.375 Gm Inj 3.375 GM in Dextrose 5% Minibag Plus 50 ML IV SCH ×3 (00:36→17:24)
[2016-12-04 05:50] LABS: BASOPHILS % (AUTO) 0 % (0-3); EOSINOPHILS % (AUTO) 0.1 % (0-5); MONOCYTES % (AUTO) 6.8 % (4-12); Mean Corpuscular Hemoglobin 31.2 pg (27.0-35.0); Platelet Count 230 bil/L (150-400)
--- NOTE | 2016-12-04 06:33 | NUR ---
Confusion Patient slept most of the night. Went to bed confused over place, location, and time. using call light frequently to ask, "what time is it?" "where is estuardo?". Patient awoke the AM. confusing. states "my phone keeps ringing, will you answer my phone." Phone was not ringing. placed phone closer to patient. patient began pushing buttons on the phone and would not hang it up, states "its broken". reoriented patient to place and time and reassured him that [address] to early to get a phone call and to call family everyone is sleeping at this hour. Patient continues to insist phone keeps ringing. removed phone from patients bedside table. patient observed sleeping, will continue to monitor.
[2016-12-04] MEDS: Albuterol-Ipratropium 3 mL Inhalation Solution NEB SCH ×4 (08:03→20:54)
[2016-12-04] MEDS: RIVASTIGMINE 13.3 MG/24 HR TOPICAL SCH (08:47)
--- NOTE | 2016-12-04 09:39 | NUR ---
Wound note Pressure ulcer protocol order received, patient seen at bedside. Pleasant, conversant 86 yo male admitted to [facility] with UTI/PNA/acute hypoxic respiratory syndrome. At baseline patient apparently walks with a FW walker. He needs significant assistance to turn in bed. He is on a low airloss bed and presents with 2 small stage 2 PI's (POA) in the crease of his buttocks at the sacral level. The more superior of the ulcers is 0.3 cm L x 0.3 cm W x 0.1 cm deep, no tunneling or undermining, scant serous drainage, no erythema. The inferior ulcer is linear in nature 1.2 cm L x 0.2 cm W x 0.1 cm D, no tunneling or undermining, scant serous drainage, no erythema. Both ulcers are cleaned with shield wipe and a mepilex dressing was placed, patient does have some excoriation with small openings at his testicles these are currently treated with calmoseptine which is appropriate and should be continued. Recommend frequent repositioning and mepilex foam dressing to be changed PRN by nursing.
--- NOTE | 2016-12-04 10:11 | NUR ---
Social Work-readiness for discharge: Data:EMR Reviewed. P tis on day 2 of hospitalization for resp per H&P. Pt is not medically stable anticipate 1-2 more days. Pt resides at home with daughter and son in law who provide 24/7 care. order received for resume HH. [phone] and informed him of pt's admission. Donato confirms they are open on services. JOSUE provided access in [employer]. Pt will need resume HH orders at discharge. Pt's family to provide transport home at discharge. SW will continue to follow. Assessment:pt who is independent at baseline. Plan:Pt to discharge home when medically stable with family to provide 24/7 care. Pt will need resume HH orders through [facility] at discharge. JOSUE will continue to follow. NAVIN Coronado Addendum: 12/04/16 at 1123 by DAMARIS BHAT JOSUE confirmed with Donato Sorto that pt is open with RN and RADIOLOGY SCHEDULER services. NAVIN Coronado
[2016-12-04] MEDS: Entacapone 200 mg Tablet PO SCH ×2 (10:24→17:25)
--- NOTE | 2016-12-04 13:24 | NUR ---
NUTRITION ASSESSMENT: ASSESS: 86 YO male admitted for acute hypoxic resp. syndrome with sepsis likely related to pneumonia and UTI. PMHx: Dementia, parkinson's, a-fib, HTN, CAD, frequent UTI, Asp. Pna, gout, depression. LABS: Reviewed. Alb 2.9. MEDS: Reviewed. GI: No BM reported. SKIN: 2 stage 2 PI in crease of buttock at sacral level per correctional casework specialist CURRENT WT: 73 kg. Admit wt: 72.2 kg. DIET: Pureed, honey thick liquids, ST eval pending. PO intake avg ~55% x 2 days. EST. NEEDS: 0970-1753 kcals (30-35 kcals/kg BW), 85-110 g protein (1.2-1.5 g/kg BW) NUTRITION DIAGNOSIS: 1.) Chewing / Swallowing difficulties likely related to disease state (dementia and parkinson's) as evidenced by current need for mechanically altered diet texture, ST following. 2.) Increased nutrient needs related to increased demand for nutrients as evidenced by current skin issues (2 stage 2 PI). NUTRITION INTERVENTION: 1.) Continue to advance diet as able per ST recommendations. 2.) Will add ensure supplements to all trays. MONITOR / EVAL: PO intake, ST eval, labs, wounds, nutritional status. Follow per moderate nutritional risk guidelines.
--- NOTE | 2016-12-04 13:42 | NUR ---
Evaluation completed. Please go to "Notes" then click on "Assessments and Notes" (bottom left corner of screen). Then select appropriate discipline tab on top of screen.
[2016-12-04] MEDS: levoFLOXacin Inj 750 MG in IV Premix 1 EACH IV SCH (13:54)
--- NOTE | 2016-12-04 14:23 | NUR ---
Activity/Skin: Turning and repositioning approx q2hrs, placing pillow between knees for relief. Cooperative with care. Following WCRN recommendation, cleansed skin with Shield wipes and Mepilex placed to sacrum.
--- NOTE | 2016-12-04 15:24 | PCM.PNMED ---
Subjective Date of Service Dec 04, 2016 Subjective Patient seen and examined today. Interactive. Feels better. Alert and oriented X 3. Vitals stable. Exam Vital Signs Vital Sign - Last Date Time Temp Pulse Resp B/P Pulse Ox O2 Delivery O2 Flow Rate FiO2 12/04/16 13:42 37.1 87 18 125/68 93 Room Air 12/03/16 20:36 1.00 Intake and Output 12/03/16 12/03/16 12/04/16 Cumulative From/Thru 15:00 23:00 07:00 12/02/16 14:18 - 12/04/16 06:37 Intake Total 1570 ml 0 ml 2812 ml Output Total 625 ml 300 ml 2975 ml Balance 945 ml -300 ml -163 ml Intake Oral 856 ml 0 ml 856 ml IV Total 714 ml 1956 ml Output Urine Total 625 ml 300 ml 2975 ml # Bowel Movements 0 0 0 Exam General: Patient appears age-appropriate, in no acute distress, resting comfortably in bed, able to answer questions appropriately. Is mildly demented HEENT: NC/AT, eyes pinpoint pupil, PERRLA, EOMI, neck, soft supple, no adenopathy, no JVD, no masses, no thyromegaly, throat mucous membranes pink and Dry, no erythema, no exudates, no tonsillar swelling, no uvular deviation. Edentulous upper and lower Lungs: Bilateral lower base crackles, severe rhonchi heard diffusely, no use of accessory muscles of respiration, moderate air movement Heart: Regular rate and rhythm, no murmur, Abdomen: Soft, nontender, nondistended, bowel sounds active, no rebound, no guarding, Genitourinary: No CVA tenderness, no suprapubic tenderness, Duval catheter in place and draining very dark colored urine, Extremities: pulses equal and symmetric upper/lower extremity including radial and dorsalis pedis, no edema Neurologic: Appears grossly neurologically intact, no focal neurological signs. Skin: Dry and appears mildly dehydrated with tenting and no rash Lab and Diagnostics Result Diagram: 12/04/16 0535 12/04/16 0535 Microbiology PADMINI CULT URINE Final 12/04/16-0719 Organism 1 ESCHERICHIA COLI U COLONY COUNT/QUANTITY >100,000 CFU/ml X-Rays, CTs and MRIs Date of Service: 12/02/16 1435 PROCEDURE: X-RAY CHEST ONE VIEW, PORTABLE Surgical changes and devices: None. Lungs and pleura: There has been interval development of prominent perihilar airspace disease. There may be mild left basilar atelectasis and/or small effusion. There is blunting of the left costophrenic angle. Aeration of the right lung is within normal limits. Air under the diaphragm on the right is felt to be related to superimposed colon. There is mild scarring within the lung apices. Mediastinum: Mediastinal contours appear normal. Heart size is borderline enlarged. There is aortic atherosclerosis. Bones and chest wall: No suspicious bony lesions. Degenerative changes of the imaged spine and shoulders are not well characterized, but appear similar to the previous exam. Overlying soft tissues appear unremarkable. IMPRESSION: No left hilar airspace disease is suspicious for pneumonia. There may be a trace left-sided pleural effusion and/or mild atelectasis. Dictated by: Iraj Albright M.D. on 12/02/2016 at 15:03 Approved by: Iraj Albright M.D. on 12/02/2016 at 15:0 Assessment & Plan This is a pleasant 86-year-old male with history of dementia, Parkinson's disease and A. fib not on warfarin with frequent UTIs and indwelling catheter who presented to the ED with acute onset shortness of breath dyspnea and respiratory distress that lasted approximately 30 minutes to an hour and improved with nebulizer therapy and Solu-Medrol. She was found to have UTI and chest x-ray suspicious for pneumonia. Patient was admitted for IV antibiotics and medical management. # Acute respiratory failure with hypoxia, present on admission, resolving - Patient currently saturating 93% on room air - O2 to keep oxygen at 93% or above, patient has no history of COPD - Albuterol nebs every 4 hours while awake. - Mucinex expectorant #severe sepsis, POA -RR30, HR 126 on arrival -lactic acid 4.4>2.3>2.6 -secondary to UTI / pna treat as below # Pneumonia, community-acquired, present on admission, active -CXR: New left hilar airspace disease is suspicious for pneumonia (reviewed by admitting team). There may be a trace left-sided pleural effusion and/or mild atelectasis. -Elevatd white count12.7, trended down 10.8 -Sputum many normal tone -Blood Cx X 2 -Procalcitonin 7.94> 5.90 -will add levaquin to zosyn, as patient has elevated lactic acid. will monitor -MRSA -ve -Acetominophen for Fever control -Legionella urine antigen, and Strep pneumonia urine antigen, both negative -Viral PCR (biofire) -Influenzae A/B -Mucinex # Elevated Lactic acid (lactic acidosis) , at admission, normalized - Lactate 4.4 at admission - IV normal saline at 100 mL per hour - Blood cultures X 2 -ve # Dehydration, present on admission, active - Mucous membranes are very dry on exam - We will start IV fluids at 100 mL per hour - Family members deny any known history of CHF # Urinary tract infection, present on admission, active - UA was positive for leukocyte esterase, nitrite, bacteria, and white blood cells greater than 50 per high-power field - Patient has indwelling Duval catheter is changed weekly by home health nurse - will continue zosyn # Anemia, normocytic normochromic, present on admission, active -H/H.1/36.0 #Hyperglycemia, present on admission, active - Blood glucose 157 - Hemoglobin A1c ordered and pending Chronic problems Parkinson's disease - We will continue home Parkinson's medication - History of aspiration pneumonia - We will get speech, OT and swallow eval's -Current diet Pureed BPH - Indwelling Duval catheter changed weekly - Hold oxybutynin for now - Continue home medication tamsulosin 0.4 mg Gout, presumed stable Coronary artery disease, presumed stable Hypertension - We will continue metoprolol ER 25 mg daily Atrial fibrillation, - We will continue metoprolol ER 25 mg daily - Remote telemetry Dementia, presumed stable Depression, presumed stable - We will continue home medication quetiapine Disposition: Admitted to in patient service with expected length of stay greater than 2 days, secondary to severity of presenting symptoms, treatment plan, complexity of clinical work up, and risk of adverse events. CODE STATUS: DNR/DNI PCP: Shayla Go DVT PE prophylaxis: SubQ heparin Q8H Contact: Prem DYE [phone]--> to Rao son-in-law Daughter [phone] Disposition : possible discharge tomorrow pending improvement in condition. VTE Prophylaxis: Sub-Q Heparin (Unfractionated) Resuscitation Status: DNR/DNI:Do Not Resuscitate/Intubate Lars Barr MD Dec 04, 2016 15:24
[2016-12-04] MEDS: MeTOProlol XL 25 mg ER24 Tablet PO SCH (21:06)
[2016-12-04] MEDS: MEMANTINE 28 MG PO SCH (21:06)
[2016-12-05] VITALS (7 sets, daily range): BP systolic 128–170; BP diastolic 69–76; PULSE 71–85; RESP 18–20; O2SAT 91–95
[2016-12-05] MEDS: Heparin 5,000 Unit/mL Inj SUBQ SCH ×2 (00:31→09:30)
[2016-12-05] MEDS: Piperacillin-Tazo 3.375 Gm Inj 3.375 GM in Dextrose 5% Minibag Plus 50 ML IV SCH ×2 (00:32→10:00)
--- NOTE | 2016-12-05 06:01 | NUR ---
NOC PT has had a pretty good night. PT slept about 90% of the shift after HS meds given. PT took meds whole in applesauce without issue. PT was slightly febrile to 100.6. MD notified. Asymptomatic. Duval draining cloudy, omar urine. PT had BM last reta on BSC and was 1 person male assist to BSC. HR irregular in 70's in afib with IVCD. PT has been turned every 2 hours to prevent further skin breakdown. PT remains confused, but was redirectable and used the call light appropriately for most of the night. Spoke with pt's daughter Ivana chen reta for check in. PT will likely d/c in few days. Recheck of lactic acid pending this am. NS infusing at 100ml currently. WIll CTM. Attempt to increase activity today as tolerated. Bed aletha alarm on at all times due to fall risk. PT has made no attempts to get OOB.
[2016-12-05 06:13] LABS: BASOPHILS % (AUTO) 0.1 % (0-3); EOSINOPHILS % (AUTO) 0.1 % (0-5); MONOCYTES % (AUTO) 8.6 % (4-12); Mean Corpuscular Hemoglobin 30.9 pg (27.0-35.0); Mean Corpuscular Volume 93.5 fL (81-100); NEUTROPHILS % (AUTO) 84.9 % (40-74); Platelet Count 211 bil/L (150-400)
[2016-12-05] MEDS: Albuterol-Ipratropium 3 mL Inhalation Solution NEB SCH ×2 (07:40→11:43)
[2016-12-05] MEDS: levoFLOXacin Inj 750 MG in IV Premix 1 EACH IV SCH (08:09)
[2016-12-05] MEDS: RIVASTIGMINE 13.3 MG/24 HR TOPICAL SCH (09:30)
[2016-12-05] MEDS: Entacapone 200 mg Tablet PO SCH (09:33)
[2016-12-05] MEDS ORDERED: IPRA3AMP NEB (12:55)
[2016-12-05] MEDS ORDERED: GUAI600T2 PO (12:55)
[2016-12-05] MEDS ORDERED: SULF20OR7 PO (13:05)
[2016-12-05] MEDS ORDERED: AMOX1TAB11 PO (13:10)
--- NOTE | 2016-12-05 13:14 | PCM.DIMED ---
Discharge Instructions Date of Service Dec 05, 2016 Dates of Hospitalization Dec 02, 2016 at 18:31 Discharge Diagnosis Discharge Diagnosis Sepsis 2/2 UTI Diet Discharge Diet: Other (Pureed diet ) Activity Discharge Activity: Home Health Phyical Therapy Patient Instructions Follow-up with PCP in: 2 weeks Additional Information Resume HH RN OPHTHALMIC TECHNICIAN 3X/week. Family needs education with nebulizers. Lars Barr MD Dec 05, 2016 13:14
--- NOTE | 2016-12-05 14:23 | NUR ---
Social Work: Discharge D: EMR reviewed. Pt is on day 3 of hospitalization. SW faxed F2F to Donato at [facility]. SW Pt's family to provide transport home at discharge. SW will continue to follow. A: Pt who is independent at baseline. P:Pt to discharge home when medically stable with family to provide 24/7 care. Pt will need resume HH orders through [facility] at discharge. SW will continue to follow. NAVIN Wen
[2016-12-05] MEDS ORDERED: Albuterol-Ipratropium 3 mL Inhalation Solution NEB SCH (14:30)
--- NOTE | 2016-12-05 14:33 | NUR ---
V tach At 1325 television servicer notified that pt just had 14 beats of v-tach. I notified MD who was in hallway near pt room, checked and verified that pt was asymptomatic and sleeping at the time it occurred. MD in room evaluated pt as well. No changes to d/c plan, care continues
--- NOTE | 2016-12-05 15:04 | PCM.DC.MED ---
Discharge Summary Date of Service Dec 05, 2016 Dates of Hospitalization Date of Hospital Admission Dec 02, 2016 at 18:31 Date of Discharge: Dec 05, 2016 Providers: Admitting Physician: Violet Lynn MD Primary Care Physician: Shayla Go Attending Physician: Violet Lynn MD Diagnosis at Time of Discharge Diagnosis at Time of Discharge Sepsis 2/2 UTI Procedures XRay, CTs & MRIs Date of Service: 12/02/16 1435 PROCEDURE: X-RAY CHEST ONE VIEW, PORTABLE Surgical changes and devices: None. Lungs and pleura: There has been interval development of prominent perihilar airspace disease. There may be mild left basilar atelectasis and/or small effusion. There is blunting of the left costophrenic angle. Aeration of the right lung is within normal limits. Air under the diaphragm on the right is felt to be related to superimposed colon. There is mild scarring within the lung apices. Mediastinum: Mediastinal contours appear normal. Heart size is borderline enlarged. There is aortic atherosclerosis. Bones and chest wall: No suspicious bony lesions. Degenerative changes of the imaged spine and shoulders are not well characterized, but appear similar to the previous exam. Overlying soft tissues appear unremarkable. IMPRESSION: No left hilar airspace disease is suspicious for pneumonia. There may be a trace left-sided pleural effusion and/or mild atelectasis. Dictated by: Iraj Albright M.D. on 12/02/2016 at 15:03 Approved by: Iraj Albright M.D. on 12/02/2016 at 15:0 Brief History Pt is an pleasantly demented 86 Y/O M with a hx of dementia, Parkinson's, A-fib (not anticoagulated on Warfarin), HTN , CAD, and frequent UTI from indwelling Duval catheter, who presented to the ED with complaint of of acute onset SOB, dyspnea, respiratory distress onset at about 1100 this morning. His home caregiver went to his house today to change his Duval catheter and found that he became SOB while changing his Duval. She reportedly heard rhonchi on lung auscultation. This all occurred while patient was at rest. The entry level account executive also reported that the patient's urine was very cloudy. The patient and family members denies previous similar history of such respiratory symptoms. Patient denied, history of COPD, history of home oxygen use, history of asthma, fevers, chills, sweats, headache, sore throat, history of TB or family history of TB, recent travel, recent hospitalizations or [facility] facilities, chest pain , abdominal pain, constipation, diarrhea.His daughter Dary reports that he gets congested from his Parkinson's but it doesn't usually affect his breathing. Patient has a chronic cough productive of clear mucus, which has been his baseline for quite some time. He now feels a bit better after medics gave nebulizers with Solu-Medrol en route. Denies any recent falls, head trauma, or any other injury. His daughter states that he usually does have some confusion when he has a UTI. Of note patient was hospitalized with pneumonia approximately 6 months ago. He sleeps at 35 angle with head of bed elevated. He describes it being hard to breathe if he lays down. But denies paroxysmal nocturnal dyspnea. In the ED patient was diagnosed with pneumonia and urinary tract infection, and was placed on levofloxacin 750 mg IV once, CXR: New left hilar airspace disease is suspicious for pneumonia. There may be a trace left-sided pleural effusion and/or mild atelectasis. Vital signs on presentation in the ED: Temperature 37.6, pulse 126, respiratory rate 30, blood pressure 169/80, pulse ox 88% on room air. Current vitals are temperature 36.6, pulse 83, respiratory rate 22, blood pressure 126/67, satting 90% on 3 L nasal cannula Hemogram showed: WBC 5.3, PMNs 88.5%, lymphs 6.4%, H/H 12.1/36.0, MCV 94, MCH 31.6, MCHC 33.6, platelets 228 PT/INR 13.0/1.21 UA was positive for leukocyte esterase, nitrite, bacteria, and white blood cells greater than 50 per high-power field Hospital Course This is a pleasant 86-year-old male with history of dementia, Parkinson's disease and A. fib not on warfarin with frequent UTIs and indwelling catheter who presented to the ED with acute onset shortness of breath dyspnea and respiratory distress that lasted approximately 30 minutes to an hour and improved with nebulizer therapy and Solu-Medrol. She was found to have UTI and chest x-ray suspicious for pneumonia. Patient was admitted for IV antibiotics and medical management. His condition improved with antibiotic and resuscitation. Management done as follows: # Acute respiratory failure with hypoxia, present on admission, resolving - Albuterol nebs every 4 hours while awake. - Mucinex expectorant #severe sepsis, POA -RR30, HR 126 on arrival -lactic acid 4.4>2.3>2.6 -secondary to UTI / pna - treated as below # Pneumonia, community-acquired, present on admission, resolved -CXR: New left hilar airspace disease is suspicious for pneumonia (reviewed by admitting team). There may be a trace left-sided pleural effusion and/or mild atelectasis. -Elevatd white count12.7, trended down 10.8 and then 9.3 -Sputum many normal tone -Blood Cx X 2 -ve -Procalcitonin 7.94> 5.90> 2.96 -will add levaquin to zosyn, as patient has elevated lactic acid. will monitor -MRSA -ve -Acetominophen for Fever control -Legionella urine antigen, and Strep pneumonia urine antigen, both negative -Viral PCR (biofire) -Influenzae A/B -Mucinex # Elevated Lactic acid (lactic acidosis) , at admission, normalized - Lactate 4.4 at admission, which normalized - IV normal saline at 100 mL per hour - Blood cultures X 2 -ve # Dehydration, present on admission, resolved - was on IV fluids at 100 mL per hour - Family members deny any known history of CHF # Urinary tract infection, present on admission, active - UA was positive for leukocyte esterase, nitrite, bacteria, and white blood cells greater than 50 per high-power field - Patient has indwelling Duval catheter is changed weekly by home health nurse - Urine culture positive for Ecoli > 100,000 - got [facility] inpatient, switched to augmentin (based on susceptibilities) on discharge # Anemia, normocytic normochromic, present on admission, active -H/H.1/36.0 #Hyperglycemia, present on admission, active - Blood glucose 157 - normalized Chronic problems Parkinson's disease - continued home Parkinson's medication - History of aspiration pneumonia -Speech and swallow eval saw the patient -Current diet Pureed BPH - Indwelling Duval catheter changed weekly - Held oxybutynin inpatient - Continued home medication tamsulosin 0.4 mg Gout, presumed stable Coronary artery disease, presumed stable Hypertension - metoprolol ER 25 mg daily Atrial fibrillation, - continue metoprolol ER 25 mg daily - Remote telemetry Dementia, presumed stable Depression, presumed stable - We will continue home medication quetiapine . Exam Vital Signs (Last) Date Time Temp Pulse Resp B/P Pulse Ox O2 Delivery O2 Flow Rate FiO2 12/05/16 11:50 71 18 93 Room Air 12/05/16 09:37 36.7 128/69 12/03/16 20:36 1.00 Test 12/02/16 14:29 12/02/16 14:39 12/02/16 15:14 12/02/16 15:57 Urine Legionella pneumophilia Ag Negative (Negative) Urine Color Yellow (YELLOW) Urine Appearance Cloudy (CLEAR,HAZY) Urine pH 6.0 (5.0-8.0) Urine Specific [place] 1.020 (1.003-1.035) Urine Protein 30mg/dL (NEG,TRACE) Urine Glucose (UA) Negativemg/dL (NEGATIVE) Urine Ketones Negativemg/dL (NEGATIVE) Urine Occult Blood Moderate (NEGATIVE) Urine Nitrite Positive (NEGATIVE) Urine Bilirubin Negative (NEGATIVE) Urine Urobilinogen Normalmg/dL (NORMAL) Urine Leukocyte Esterase Large (NEGATIVE) Urine RBC 3-10/hpf (0-2) Urine WBC >50/hpf (0-5) Urine Epithelial Cells Few/hpf (NONE-MOD) Urine Crystals None seen (NONE SEEN) Urine Bacteria Many/hpf (NONE-FEW) Urine Hyaline Casts None/lpf (NONE) Urine Granular Casts None seen (NONE SEEN) Urine Waxy Casts None seen (NONE SEEN) Urine Red Blood Cell Casts None seen (NONE SEEN) Urine White Blood Cell Casts None seen (NONE SEEN) Urine Mucus None seen (None Seen) Urine Trichomonas None seen (NONE SEEN) Urine Yeast None (NONE SEEN) Urinalysis Comment None Urine Culture Reflexed Indicated Hemoglobin A1c 5.6% (4.8-5.6) Magnesium Level 1.7mg/dL (1.6-2.6) Troponin T < 0.010ug/L (0.0-0.011) Pro-B-Type Natriuretic Peptide 1980pg/mL (0-486) Prealbumin 13mg/dL (20-40) Prothrombin Time 13.0sec (8.1-12.5) Prothromb Time International Ratio 1.21ratio Activated Partial Thromboplast Time 28.2sec (22.8-33.0) Test 12/03/16 06:28 12/03/16 09:21 12/05/16 05:48 Total Bilirubin 0.6mg/dL (0.0-1.2) Aspartate Amino Transf (AST/SGOT) 21U/L (0-50) Alanine Aminotransferase (ALT/SGPT) 5U/L (0-44) Alkaline Phosphatase 69U/L (25-160) Total Protein 6.3g/dL (6.4-8.4) Albumin 2.9g/dL (3.4-5.0) Hold Carroll Top Tube Received (Received) White Blood Count 9.3th/mm3 (3.8-10.1) Red Blood Count 3.37mil/mm3 (4.40-5.80) Hemoglobin 10.4g/dL (13.8-17.2) Hematocrit 31.5% (41.0-50.0) Mean Corpuscular Volume 93.5fL (81-100) Mean Corpuscular Hemoglobin 30.9pg (27.0-35.0) Mean Corpuscular Hemoglobin Concent 33.0% (32.0-37.0) Red Cell Distribution Width 14.1% (12.3-15.4) Platelet Count 211bil/L (150-400) Neutrophils (%) (Auto) 84.9% (40-74) Lymphocytes (%) (Auto) 6.1% (14-46) Monocytes (%) (Auto) 8.6% (4-12) Eosinophils (%) (Auto) 0.1% (0-5) Basophils (%) (Auto) 0.1% (0-3) Sodium Level 139mEq/L (134-144) Potassium Level 3.9mEq/L (3.5-5.2) Chloride Level 105mEq/L (97-108) Carbon Dioxide Level 20mmol/L (18-29) Blood Urea Nitrogen 17mg/dL (8-27) Creatinine 0.73mg/dL (0.76-1.27) Estimat Glomerular Filtration Rate 108mL/min (>59) Glucose Level 90mg/dL (60-99) Lactic Acid Level 1.1mmol/L (0.4-2.0) Calcium Level 7.9mg/dL (8.5-10.1) Procalcitonin 2.96ng/mL (0.00-0.08) Microbiology Results PADMINI CULT URINE Final 12/04/16-718 Organism 1 ESCHERICHIA COLI U COLONY COUNT/QUANTITY >100,000 CFU/ml Discharge Medications Discharge Medications Amlodipine (Amlodipine) 2.5 Mg Tablet 2.5 MG PO DAILY (Reported) Amoxicillin/Clav K 500-125 mg (Augmentin 500) 1 Tab Tab 1 TABLET PO BID Prescribed by: VIOLET LYNN MD Carbidopa/Levodopa 25-100 mg (Carbidopa/Levodopa 25-100 mg) 1 Each Tablet 1 TABLET PO BID in AM and 1400 (Reported) Carbidopa/Levodopa 25-100 mg (Carbidopa/Levodopa 25-100 mg) 1 Each Tablet 2 TABLET PO daily at 1800 (Reported) Entacapone (Entacapone) 200 Mg Tablet 200 MG PO BID AM and 1400 (Reported) Finasteride (Finasteride) 5 Mg Tablet 5 MG PO DAILY (Reported) Guaifenesin (Mucinex) 600 Mg Tablet.er 600 MG PO BID Prescribed by: VIOLET LYNN MD Ipratropium/Albuterol Sulfate (Iprat-Albut 0.5-3(2.5) mg/3 mL Inhalant Soln) 3 Ml Ampul.neb 3 ML NEB Q6 Prescribed by: VIOLET LYNN MD Lactose-Free Food (Ensure Plus) 237 Ml Liquid 237 ML PO TID Prescribed by: SUNITA JAMES DO Memantine HCl (Namenda-XR) 28 Mg Cap.spr.24 28 MG PO QPM (Reported) Metoprolol Succinate ER (Metoprolol Succinate ER) 25 Mg Tab.er.24h 25 MG PO QPM (Reported) Quetiapine Fumarate (Seroquel) 25 Mg Tablet 75 MG PO HS (Reported) Rivastigmine (Rivastigmine) 13.3 Mg/24 Hour Patch.td24 2 PATCH TRANSDERM DAILY ( Reported) Sennosides (Senna) 8.6 Mg Tablet 25.8 MG PO DAILY (Reported) As needed Oxybutynin Chloride ER (Oxybutynin Chloride ER) 5 Mg Tab.er.24 5 MG PO DAILY PRN PRN BLADDER SPASM (Reported) Followup Plan Disposition: Home with home health. Follow-up plan Follow up with pcp. Discharge Diet: Other (Pureed diet ) Discharge Activity: Home Health Phyical Therapy Follow-up with PCP in: 2 weeks Time spent 45 mins copies to: Shayla Go Abhinav MD Dec 05, 2016 15:04
--- NOTE | 2016-12-05 15:30 | NUR ---
Discharge Reviewed d/c instructions with pt and daughter in room including care notes and new prescriptions, pt signed and given originals, copies to chart. IV d/c intact, tele removed. All belongings including personal walker taken with pt upon d/c. VS stable at d/c. Pt taken via WC by conventional underwriter and REPEATER CHIEF downstairs to car to be driven home by daughter.
--- NOTE | 2016-12-06 15:16 | NUR ---
Social Work: Late Note EMPLOYEE BENEFITS MANAGER received phone call form Population health from [facility]. They state that pt is not doing very well at home and that the family is wanting SNF. EMPLOYEE BENEFITS MANAGER stated that they will have to go through their PCP to get that set up. Erendira Helm, EMPLOYEE BENEFITS MANAGER
== END 2016-12-05 15:14 | disposition home health service (06) | DRG 871 ==
LOC: EDUNIT# 14:08 → SED 14:08 → EDBD 14:08 → MPC 18:31
PROVIDERS: ADMIT Internal Medicine; ATTEND Internal Medicine
DX: A41.9 Sepsis, unspecified organism (principal); J18.8 Other pneumonia, unspecified organism; J96.01 Acute respiratory failure with hypoxia; N39.0 Urinary tract infection, site not specified; R65.20 Severe sepsis without septic shock; G20 Parkinson's disease; F02.80 Dementia in other diseases classified elsewhere, unspecified severity, without behavioral disturbance, psychotic disturbance, mood disturbance, and anxiety; I48.91 Unspecified atrial fibrillation; I10 Essential (primary) hypertension; I25.10 Atherosclerotic heart disease of native coronary artery without angina pectoris; N40.0 Benign prostatic hyperplasia without lower urinary tract symptoms; E86.0 Dehydration; D64.9 Anemia, unspecified; F32.9 Major depressive disorder, single episode, unspecified; Z66 Do not resuscitate; B96.20 Unspecified Escherichia coli [E. coli] as the cause of diseases classified elsewhere; Z87.891 Personal history of nicotine dependence

== ENCOUNTER 2016-12-06 16:52 | Inpatient (IN) | payer MEDICARE, OTHER ==
[~2016-12-06] VITALS: Ht 182.9 cm; Wt 72.7 kg
[~2016-12-06 16:52] MED LIST changes: +AMOX1TAB11 PO; -B-CA1TAB PO; -CEFU500T61 PO; -FERR324T2 PO; +FINA5TAB9 PO; +GUAI600T2 PO; +IPRA3AMP NEB; -LORA10CA PO; +OXYB5TAB PO; +QUET25TA PO; +SENN-133 PO; -TAMS0.4C98 PO; -WARF5TAB7 PO
[2016-12-06 17:00] VITALS: BP 144/69; PULSE 75; RESP 16; O2SAT 93
--- NOTE | 2016-12-06 17:05 | ED.REPORT ---
HPI-General Illness Date of Service Dec 06, 2016 ED Provider: Dr. Leal 86 y/o male with a hx of aspiration pneumonia, dementia, Parkinson's, A-fib ( not on Warfarin), HTN , CAD and frequent UTI from catheter presents to the ED via EMS with his daughter due to aspirating food, onset today. He also aspirated one of his medications and vomited foam immediately after. He is taking minimal liquid and food. He has also been running a fever of 101 intermittently and has been confused and disoriented. His daughter states "this is very unusual for him. He doesn't remember things but he knows me and he is ambulatory but he can't even get up now." The pt was seen at the ED 4 days ago and was admitted to the hospital for UTI and pneumonia. He was discharged yesterday with a prescription for Augmentin. His daughter hopes he can be treated for the infection and brought back to baseline so he can be evaluated for worsening Parkinson's. She also states that the pt is DNR/DNI and does not want a gastric tube. The pt also has a decubitus ulcer over the sacrum, with the dressing in place. Nursing Notes Stated Complaint: DIFFICULTY SWALLOWINBG Chief Complaint: General Complaint Nursing Notes Reviewed: Yes Allergies: Coded Allergies: No Known Allergies (Unverified Allergy, Unknown, 07/22/15) Scheduled Amlodipine (Amlodipine) 2.5 Mg Tablet 2.5 MG PO DAILY Ampicillin Sodium/Sulbactam Na (Unasyn 1.5 gm Vial) 1.5 Gm Vial 1.5 GM IJ QID Carbidopa/Levodopa 25-100 mg (Carbidopa/Levodopa 25-100 mg) 1 Each Tablet 1 TABLET PO BID in AM and 1400 Carbidopa/Levodopa 25-100 mg (Carbidopa/Levodopa 25-100 mg) 1 Each Tablet 2 TABLET PO daily at 1800 Entacapone (Entacapone) 200 Mg Tablet 200 MG PO BID AM and 1400 Finasteride (Finasteride) 5 Mg Tablet 5 MG PO DAILY Guaifenesin (Mucinex) 600 Mg Tablet.er 600 MG PO BID Ipratropium/Albuterol Sulfate (Iprat-Albut 0.5-3(2.5) mg/3 mL Inhalant Soln) 3 Ml Ampul.neb 3 ML NEB Q6 Lactose-Free Food (Ensure Plus) 237 Ml Liquid 237 ML PO TID Memantine HCl (Namenda-XR) 28 Mg Cap.spr.24 28 MG PO QPM Metoprolol Succinate ER (Metoprolol Succinate ER) 25 Mg Tab.er.24h 25 MG PO QPM Quetiapine Fumarate (Seroquel) 25 Mg Tablet 75 MG PO HS Rivastigmine (Rivastigmine) 13.3 Mg/24 Hour Patch.td24 2 PATCH TRANSDERM DAILY Sennosides (Senna) 8.6 Mg Tablet 25.8 MG PO DAILY Scheduled PRN Oxybutynin Chloride ER (Oxybutynin Chloride ER) 5 Mg Tab.er.24 5 MG PO DAILY PRN PRN BLADDER SPASM General Time Seen by MD: 17:04 Chief Complaint Other (aspirating food) Hx Obtained From: Daughter Arrived By: Ambulance Sudden in Onset?: No Onset Occurred: Yesterday Symptom Duration: Since onset Severity: Current: No pain currently Severity: Maximum: No pain Recent Healthcare: Recent doctor visit, Recent hospitalization Similar Sx Previous: Yes Past Medical History Past Medical History Parkinson's disease History of aspiration pneumonia BPH Gout Reports: Coronary artery disease, Hypertension Reports: Atrial fibrillation, Dementia, Depression Past Surgical History Skin graft Reports: Cataract surgery, Tonsillectomy Smoking History Former Smoker Social History Lives with daughter and son in law Alcohol Use: "Social" Drug Use: Denies drug use Ambulatory Status Independent Review of Systems Reports: aspirating food Reports: decubitus ulcer on sacrum Full Review of Systems Constitutional: Reports: Fever GI: Reports: Vomiting Neurologic: Reports: Confusion, Weakness (unable to walk) Complete sys rev & neg: except as marked. Physical Exam Vital Signs Vital Signs Date Time Temp Pulse Resp B/P Pulse Ox O2 Delivery O2 Flow Rate FiO2 12/06/16 19:34 70 152/59 92 Room Air 12/06/16 17:00 36.8 75 16 144/69 93 Room Air Initial VS: Reviewed Head / Eyes: Atraumatic, Normocephalic Neck: Supple, Non-tender, Full range of motion Abdomen / GI: Soft, Non-tender Extremities: Vascular intact, Neuro intact, No swelling, No tenderness Skin: Warm, Dry, No cyanosis Neurologic: Alert, Oriented, Nonfocal General/Constitutional: Awake, Cooperative Chronic indwelling vincent catheter. Respiratory / Chest: Atraumatic, Breath sounds = bilat, No rhonchi, No wheezing Rales / Rhonchi: Positive: Rales bilateral bases (worse on the right than the left) Cardiovascular: Heart rate NL, No murmurs, No rubs Heart Rate / Rhythm: Positive: Irreg irregular rhythm Back: Atraumatic, Full range of motion Stage 1 pressure ulcer over the sacrum with dressing in place. Interpretation & Diagnostics Lab Results Interpretation Result Diagram: 12/08/16 0520 12/08/16 0520 Test 12/06/16 19:05 12/06/16 20:18 Lactic Acid Level 1.1mmol/L (0.4-2.0) Magnesium Level 1.9mg/dL (1.6-2.6) Total Bilirubin 0.8mg/dL (0.0-1.2) Aspartate Amino Transf (AST/SGOT) 25U/L (0-50) Alanine Aminotransferase (ALT/SGPT) 6U/L (0-44) Alkaline Phosphatase 74U/L (25-160) Troponin T < 0.010ug/L (0.0-0.011) Total Protein 6.9g/dL (6.4-8.4) Urine Color [place] (YELLOW) Urine Appearance Cloudy (CLEAR,HAZY) Urine pH 6.0 (5.0-8.0) Urine Specific [place] 1.028 (1.003-1.035) Urine Protein 300mg/dL (NEG,TRACE) Urine Glucose (UA) Negativemg/dL (NEGATIVE) Urine Ketones Tracemg/dL (NEGATIVE) Urine Occult Blood Large (NEGATIVE) Urine Nitrite Negative (NEGATIVE) Urine Bilirubin Negative (NEGATIVE) Urine Urobilinogen Normalmg/dL (NORMAL) Urine Leukocyte Esterase Small (NEGATIVE) Urine RBC >50/hpf (0-2) Urine WBC >50/hpf (0-5) Urine Epithelial Cells Few/hpf (NONE-MOD) Urine Crystals None seen (NONE SEEN) Urine Bacteria Few/hpf (NONE-FEW) Urine Hyaline Casts None/lpf (NONE) Urine Granular Casts None seen (NONE SEEN) Urine Waxy Casts None seen (NONE SEEN) Urine Red Blood Cell Casts None seen (NONE SEEN) Urine White Blood Cell Casts None seen (NONE SEEN) Urine Mucus None seen (None Seen) Urine Trichomonas None seen (NONE SEEN) Urine Yeast None (NONE SEEN) Urinalysis Comment None Urine Culture Reflexed Indicated ECG Interpretation ECG Interpretation: A-fib. Rate 73. 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 Unchanged from 12/02/16 Time: 17:46 Interpreted by: ED physician X-Ray Chest Interpretation Chest Xray Interpretation: IMPRESSION: 1. Increased confluent bilateral airspace opacities consistent with history of aspiration. 2. Persistent small left pleural effusion. Dictated by: Charlie Bang M.D. on 12/06/2016 at 18:30 Approved by: Charlie Bang M.D. on 12/06/2016 at 18:34 View: Portable, 1 view Interpretation / Wet Read by: Interpret - Radiologist Re-Eval/Medical Decision Med Decision/Clinical Course pt with advancing parkinsons disease and recent admit for aspiration pneumonia presents with reported fevers, acute encephalopathy and inability to keep liquids and medications down due to aspiration. Pt is DNR/DNI and does not want feeding tube placement. Family is hopeful that after appropriate treatment his ability to swallow will return. They are open to the idea of a palliative care consult. Time of Eval: 20:29 Re-Evaluation/Progress Note: Rechecked pt. Discussed lab results, imaging results, diagnosis and plan to admit. Pt's daughter understands and agrees with the plan for admission. All questions addressed. Consultation : Referral / Consult Name: Erin Chau DO Call Returned at: 21:08 Weight Checker: Will see patient, Agrees with eval, Agrees with plan, Accepts admit Counseled Regarding: Diagnosis, Lab results, Need for admission Discharge & Departure Primary Impression: Aspiration pneumonia Aspiration pneumonia type: unspecified Laterality: unspecified laterality Lung location: unspecified part of lung Qualified Code: J69.0 - Pneumonitis due to inhalation of food and vomit Additional Impressions: Encephalopathy acute Failure to thrive Failure to thrive age range: in adult Qualified Code: R62.7 - Adult failure to thrive Failure of outpatient treatment Urinary tract infection Urinary tract infection type: acute cystitis Hematuria presence: with hematuria Qualified Code: N30.01 - Acute cystitis with hematuria Disposition: ADMITTED TO HOSPITAL Discharge Condition All VS Reviewed: Yes Referrals: Shayla Go (PCP) Scribe Attestation Portions of this note were transcribed by Dr.Andelin Kati, personally performed the history, physical exam and medical decision- making;I reviewed and confirmed the accuracy of the information in the transcribed note. Signed by Kellie Ferraro. 12/06/16 22:01 copies to: Shayla Go Gary R DO Dec 06, 2016 17:05 Daniel Mcfarlane Dec 06, 2016 17:46 (NONE SEEN) Urine White Blood Cell Casts None seen (NONE SEEN) Urine Mucus None seen (None Seen) Urine Trichomonas None seen (NONE SEEN) Urine Yeast None (NONE SEEN) Urinalysis Comment None Urine Culture Reflexed Indicated ECG Interpretation ECG Interpretation: A-fib. Rate 73. 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 Unchanged from 12/02/16 Time: 17:46 Interpreted by: ED physician X-Ray Chest Interpretation Chest Xray Interpretation: IMPRESSION: 1. Increased confluent bilateral airspace opacities consistent with history of aspiration. 2. Persistent small left pleural effusion. Dictated by: Charlie Bang M.D. on 12/06/2016 at 18:30 Approved by: Charlie Bang M.D. on 12/06/2016 at 18:34 View: Portable, 1 view Interpretation / Wet Read by: Interpret - Radiologist Re-Eval/Medical Decision Time of Eval: 20:29 Re-Evaluation/Progress Note: Rechecked pt. Discussed lab results, imaging results, diagnosis and plan to admit. Pt's daughter understands and agrees with the plan for admission. All questions addressed. Consultation : Referral / Consult Name: Erin Chau DO Call Returned at: 21:08 Weight Checker: Will see patient, Agrees with eval, Agrees with plan, Accepts admit Counseled Regarding: Diagnosis, Lab results, Need for admission Discharge & Departure Primary Impression: Aspiration pneumonia Aspiration pneumonia type: unspecified Laterality: unspecified laterality Lung location: unspecified part of lung Qualified Code: J69.0 - Pneumonitis due to inhalation of food and vomit Additional Impression: Altered mental status Altered mental status type: unspecified Qualified Code: R41.82 - Altered mental status, unspecified Disposition: ADMITTED TO HOSPITAL Discharge Condition All VS Reviewed: Yes Referrals: Shayla Go (PCP) [place] Attestation Portions of this note were transcribed by Daniel Mcfarlane. I, , personally performed the history, physical exam and medical decision- making;I reviewed and confirmed the accuracy of the information in the transcribed note. Signed by Kellie Ferraro. 12/06/16 22:01 copies to: Shayla Go Gary R DO Dec 06, 2016 17:05 Daniel Mcfarlane Dec 06, 2016 17:46
--- NOTE | 2016-12-06 18:35 | DRSVH ---
PROCEDURE: X-RAY CHEST ONE VIEW, PORTABLE ([id number]) INDICATIONS: aspiration TECHNIQUE: One view of the chest was acquired. COMPARISON: [facility], CR, XR CHEST 1VW (PORTABLE), 12/02/2016, 15:25. FINDINGS: Surgical changes and devices: None. Lungs and pleura: There are increased confluent bilateral airspace opacities with a basilar predomin ance. A small left pleural effusion is redemonstrated. Mediastinum: Mediastinal contours appear unchanged. Heart size is normal. Bones and chest wall: No suspicious bony lesions. Overlying soft tissues appear unremarkable. IMPRESSION: 1. Increased confluent bilateral airspace opacities consistent with history of aspiration. 2. Persistent small left pleural effusion. Dictated by: Charlie Bang M.D. on 12/06/2016 at 18:30 Approved by: Charlie Bang M.D. on 12/06/2016 at 18:34
[2016-12-06 19:19] LABS: BASOPHILS % (AUTO) 0.1 % (0-3); EOSINOPHILS % (AUTO) 0.4 % (0-5); MONOCYTES % (AUTO) 10.1 % (4-12); Mean Corpuscular Volume 93.5 fL (81-100); NEUTROPHILS % (AUTO) 80.2 % (40-74); Platelet Count 232 bil/L (150-400)
[2016-12-06 19:34] VITALS: BP 152/59; PULSE 70; O2SAT 92
[2016-12-06 19:43] LABS: TROPONIN T < 0.010 ug/L (0.0-0.011)
[2016-12-06 19:50] LABS: Magnesium 1.9 mg/dL (1.6-2.6)
[2016-12-06] MEDS ORDERED: 0.9% Sodium Chloride 1,000 ML IV ONE (20:15)
[2016-12-06 20:39] LABS: APPEARANCE,URINE CLOUDY (CLEAR,HAZY); COLOR,URINE ORANGE (YELLOW)
[2016-12-06 20:40] LABS: OCCULT BLOOD,URINE LARGE (NEGATIVE); UROBILINOGEN,URINE NORMAL (NORMAL)
[2016-12-06] MEDS ORDERED: Ondansetron 2 mg/mL 2 mL Inj IVPUSH PRN ×2 (21:15→21:30)
[2016-12-06] MEDS ORDERED: Alum-Mag Hydrox-Simeth 30 mL Suspension PO PRN ×2 (21:15→21:30)
--- NOTE | 2016-12-06 21:15 | PCM.HPMED ---
Subjective Date of Service Dec 06, 2016 Primary Provider: Admitting Physician: Primary Care Physician: Shayla Go Attending Physician: Admit Status: From the Emergency Department Chief Complaint: confused, not recognizing daughter, unable to keep PO down History of Present Illness: 86yoM with history of dementia, Parkinson's disease and A. fib not on warfarin with frequent UTIs and indwelling catheter re-admitted 24 hours after discharge for failure of outpatient treatment for PNA and increased confusion. Mr. Coleman was recently admitted from 12/02-12/05 and was initially admitted with findings of sepsis secondary to urinary tract infection as well concerns for community acquired vs aspiration pneumonia. He does have a history of these and since returning home on 12/05 he has had increasing difficulties with ambulation, confusion and taking PO. His daughter is at the bedside and is able to give information regarding the past 24 hours. While the family has a home health nurse and family around 24 hours a day they have found it difficult to get Mr. Coleman to the toilet. While he regularly uses a walker he is unable to do this returning home. He also has aspirated on a few occasions and has been unable to take his PO antibiotics even with coaching from family and home health. Prior to return to the hospital Mr. Coleman has been unable to recognize his family members and become increasingly confused. When asked upon admission if he has any complaints he denies any discomforts and denies chest pain, shortness or breath, abdominal pain. He has had minimal BM since returning home and daughter denies diarrhea. Discussion with daughter reveals that they are concerned about the decline they have seen in Mr. Gabe reynolds since the of his 07/2016. They would like to explore options regarding SNF vs home placement and possible hospice options weighing the risk / benefits of returning to the hospital in the future. His daughter did consider not returning to the hospital for the current visit but decided it best for evaluation. Review of Systems: complete review of systems obtained however patient is confused and not likely accurate. Positive as per HPI. Allergies Coded Allergies: No Known Allergies (Unverified Allergy, Unknown, 07/22/15) Home Medications Discharge medications on 12/05/2016 Discharge Medications Amlodipine (Amlodipine) 2.5 Mg Tablet 2.5 MG PO DAILY (Reported) Amoxicillin/Clav K 500-125 mg (Augmentin 500) 1 Tab Tab 1 TABLET PO BID Prescribed by: VIOLET LYNN MD Carbidopa/Levodopa 25-100 mg (Carbidopa/Levodopa 25-100 mg) 1 Each Tablet 1 TABLET PO BID in AM and 1400 (Reported) Carbidopa/Levodopa 25-100 mg (Carbidopa/Levodopa 25-100 mg) 1 Each Tablet 2 TABLET PO daily at 1800 (Reported) Entacapone (Entacapone) 200 Mg Tablet 200 MG PO BID AM and 1400 (Reported) Finasteride (Finasteride) 5 Mg Tablet 5 MG PO DAILY (Reported) Guaifenesin (Mucinex) 600 Mg Tablet.er 600 MG PO BID Prescribed by: VIOLET LYNN MD Ipratropium/Albuterol Sulfate (Iprat-Albut 0.5-3(2.5) mg/3 mL Inhalant Soln) 3 Ml Ampul.neb 3 ML NEB Q6 Prescribed by: VIOLET LYNN MD Lactose-Free Food (Ensure Plus) 237 Ml Liquid 237 ML PO TID Prescribed by: SUNITA JAMES DO Memantine HCl (Namenda-XR) 28 Mg Cap.spr.24 28 MG PO QPM (Reported) Metoprolol Succinate ER (Metoprolol Succinate ER) 25 Mg Tab.er.24h 25 MG PO QPM (Reported) Quetiapine Fumarate (Seroquel) 25 Mg Tablet 75 MG PO HS (Reported) Rivastigmine (Rivastigmine) 13.3 Mg/24 Hour Patch.td24 2 PATCH TRANSDERM DAILY ( Reported) Sennosides (Senna) 8.6 Mg Tablet 25.8 MG PO DAILY (Reported) As needed Oxybutynin Chloride ER (Oxybutynin Chloride ER) 5 Mg Tab.er.24 5 MG PO DAILY PRN PRN BLADDER SPASM (Reported) PMH Parkinson's disease History of aspiration pneumonia BPH Gout Coronary artery disease, Hypertension Atrial fibrillation, Dementia, Depression Surgical History Skin graft Cataract surgery Tonsillectomy Family History Brother with Parkinson's disease Social History Hx Alcohol Use: Yes (occasional, not current) Hx Substance Use: No Hx Tobacco Use: No Smoking Status: Former Smoker Exam Vital Signs Vital Sign - Last Date Time Temp Pulse Resp B/P Pulse Ox O2 Delivery O2 Flow Rate FiO2 12/06/16 19:34 70 152/59 92 Room Air 12/06/16 17:00 36.8 16 Exam General: No acute distress, well-nourished, somnolent but easily arousable Eyes: PERRLA, EOMI, anicteric sclera, mildly injected conjunctiva HENT: Normocephalic, atraumatic. Moist mucous membranes Neck: Supple with full range of motion. No jugular venous distension. No bruits. No thyromegaly. Cardiovascular: Regular rate and rhythm with no murmurs, rubs, or gallops appreciated Pulmonary: diffuse wheeze, good respiratory effort, crackles throughout. Abdomen: Bowel tones present. Soft, nontender, nondistended. No hepatosplenomegaly or masses appreciated. Extremities: No clubbing, cyanosis, edema, or lymphadenopathy appreciated. Skin: Normal temperature, turgor, and texture; no rash or subcutaneous nodules appreciated. Neurological: Nonfocal neurologic exam, no tremors noted, able to move all extremities spontaneously Psychiatric: Normal mood and affect. Lymph: no supraclavicular or cervical lymphadenopathy Lab and Diagnostics Result Diagram: 12/06/16190412/06/161904 X-Rays, CTs and MRIs Patient Name: CARLOS EDUARDO COLEMAN MR#: [id number] [place] [facility] [place] Phys: Robert Leal DO Date of Service: 12/06/161718 PROCEDURE: X-RAY CHEST ONE VIEW, PORTABLE ([id number]) INDICATIONS: aspiration TECHNIQUE: One view of the chest was acquired. COMPARISON: [facility], CR, XR CHEST 1VW (PORTABLE), 12/02/2016, 15: 25. FINDINGS: Surgical changes and devices: None. Lungs and pleura: There are increased confluent bilateral airspace opacities with a basilar predominance. A small left pleural effusion is redemonstrated. Mediastinum: Mediastinal contours appear unchanged. Heart size is normal. Bones and chest wall: No suspicious bony lesions. Overlying soft tissues appear unremarkable. IMPRESSION: 1. Increased confluent bilateral airspace opacities consistent with history of aspiration. 2. Persistent small left pleural effusion. Dictated by: Charlie Bang M.D. on 12/06/2016 at 18:30 Approved by: Charlie Bang M.D. on 12/06/2016 at 18:34 Assessment & Plan 86yoM with history of dementia, Parkinson's disease and A. fib not on warfarin with frequent UTIs and indwelling catheter re-admitted 24 hours after discharge for failure of outpatient treatment for PNA and increased confusion. Pneumonia, POA, acute -patient recently admitted for CAP however with history of aspiration in the setting of Parkinson's disease -CXR with increased consolidation from previous admission concerning for treatment failure or more likely aspiration -unable to take PO as an outpatient and coughing up abx -procalcitonin continues to trend down -legionella urine antigen and strep pneumo antigen were neg last admission, influenza a/b neg, viral pcr neg -will continue with amp-sulbactam with low threshold to broaden given hospitalization Metobolic encephalopathy, acute, POA -worsening mentation since discharge home concerning for worsening infection however procal continue to trend down, alternatively potential medication side effect, non-focal exam leaves CVA less likely but not ruled out, worsening baseline dementia likely contributing factor -continue to monitor and treat as above Outpatient treatment failure, failure to thrive, acute, POA -patient with inability to take PO, most likely a/w worsening Parkinson's disease vs infection -pureed solids on discharge 12/05, will continue PO following repeat swallow evaluation -may require optimization of Parkinson's medications -PT / OT evaluation and treatment Urinary tract infection, present on admission, active - UA was positive for leukocyte esterase, nitrite, bacteria, and white blood cells greater than 50 per high-power field - Patient has indwelling Duval catheter is changed weekly by home health nurse - Urine culture positive for Ecoli > 100,000 - patient received zosyn during last admission and was transitioned to augmentin however failure of outpatient treatment - continue with amp-clavulanate as above Anemia, normocytic normochromic, present on admission, active - continue to monitor, improved since last admission however decreased PO intake Chronic problems Parkinson's disease - continued home Parkinson's medication - History of aspiration pneumonia - NPO at this time with mIVF - Speech swallow repeat eval for worsening PO intake and persistent aspiration - Palliative care consult in AM BPH - Indwelling Duval catheter changed weekly - Hold oxybutynin while inpatient - Continue home medication tamsulosin 0.4 mg Gout, presumed stable Coronary artery disease, presumed stable Hypertension - metoprolol ER 25 mg daily Atrial fibrillation, - continue metoprolol ER 25 mg daily - Remote telemetry Dementia, presumed stable Depression, presumed stable - We will continue home medication quetiapine . Patient is admitted under inpatient status with expected stay >2 midnights Pain Evaluation: Adequate Pain Control GI Prophylaxis: Not indicated VTE Prophylaxis: Sub-Q Heparin (Unfractionated) Resuscitation Status: DNR/DNI:Do Not Resuscitate/Intubate Erin Chau DO Dec 06, 2016 21:15
[2016-12-06 21:25] VITALS: BP_SYST 152; BP_SYST 156; BP_DIAS 59; BP_DIAS 61; PULSE 70; PULSE 73; RESP 16; O2SAT 92
[2016-12-06] MEDS ORDERED: Polyethylene Glycol (PEG) 17 Gm Powder PO PRN (21:30)
--- NOTE | 2016-12-06 21:42 | NUR ---
MEDS TO PHARMACY Pt brought in two medications that our pharmacy does not carry-Namenda 28mg and Rivastigmine patches-meds labeled and sealed in a pharmacy bag and picked up by Mateo Davidson, pharmacist in the ER, to be relabeled.
[2016-12-06 21:54] VITALS: BP 156/61; PULSE 73; O2SAT 92
[2016-12-06] MEDS: MEMANTINE 28 MG PO SCH (22:00)
[2016-12-06 22:13] VITALS: BP 159/83; PULSE 71; RESP 18; O2SAT 93
[2016-12-06] MEDS: 0.9% Sodium Chloride 1,000 ML IV SCH (22:57)
[2016-12-06] MEDS: Ampicillin-Sulbactam Inj 1,500 MG in 0.9% Sodium Chloride 50 ML IV SCH (23:01)
[2016-12-06] MEDS: Pt Own Med->Topical Med TOPICAL SCH (23:01)
[2016-12-07] MEDS: Heparin 5,000 Unit/mL Inj SUBQ SCH ×3 (00:15→16:47)
--- NOTE | 2016-12-07 00:25 | NUR ---
Admit to room 3024 @ 22:15 with aspirational pneumonia and AMS. Very forgetful making orientation to room not possible considering he is unable to recall his recent admit 2 days ago. Q2 Turning due to lack of movement or position changes. Daughter assisted with admission process and medical history. No c/o pain/N/V. Has been unable to urinate without vincent catheter for last year and half with frequent home health vincent replacements. Urine color pink/red tinged not baseline as usually only pink spots or clots occurring with normal color urine. VSS sat'ing 95% on RA. [id number] bed in place due to high risk for pressure ulcers. Skin of sacrum blanchable red with mepilex in place. Oriented x2.
--- NOTE | 2016-12-07 00:33 | NUR ---
Med Rec completed by pharmacist in ED. Home medications taken by pharmacy and brought to floor for administration through [facility].
[2016-12-07 01:20] VITALS: BP 150/79; PULSE 71; RESP 18; O2SAT 91
[2016-12-07 04:51] VITALS: BP 151/75; PULSE 66; RESP 20; O2SAT 90
[2016-12-07 05:42] VITALS: PULSE 67
[2016-12-07] MEDS: Ampicillin-Sulbactam Inj 1,500 MG in 0.9% Sodium Chloride 50 ML IV SCH ×3 (05:55→18:10)
[2016-12-07 06:49] LABS: BASOPHILS % (AUTO) 0.1 % (0-3); EOSINOPHILS % (AUTO) 1.1 % (0-5); MONOCYTES % (AUTO) 13.1 % (4-12); Mean Corpuscular Hemoglobin 31.2 pg (27.0-35.0); NEUTROPHILS % (AUTO) 74.1 % (40-74); Platelet Count 234 bil/L (150-400)
[2016-12-07] MEDS: Entacapone 200 mg Tablet PO SCH ×2 (08:30→14:37)
[2016-12-07 08:53] VITALS: PULSE 64
--- NOTE | 2016-12-07 10:29 | NUR ---
Evaluation completed. Please go to "Notes" then click on "Assessments and Notes" (bottom left corner of screen). Then select appropriate discipline tab on top of screen.
[2016-12-07] MEDS ORDERED: KCl 40 mEq/100 mL (CENTRAL) 40 MEQ in IV Premix 1 EACH IV ONE (11:30)
[2016-12-07] MEDS ORDERED: KCl 40 mEq/500 mL D5W (Peripheral Line) IV ONE ×2 (11:35)
--- NOTE | 2016-12-07 11:38 | NUR ---
Evaluation completed. Please go to "Notes" then click on "Assessments and Notes" (bottom left corner of screen). Then select appropriate discipline tab on top of screen.
[2016-12-07] MEDS ORDERED: KCl 40 mEq/D5W 500 mL 40 MEQ in IV Premix 1 EACH IV ONE (11:39)
[2016-12-07] MEDS: 0.9% Sodium Chloride 1,000 ML IV SCH ×2 (12:10→22:29)
--- NOTE | 2016-12-07 13:15 | PCM.PNMED ---
Subjective Date of Service Dec 07, 2016 Subjective Patient seen and examined. He said he "just wants to sleep". Vitals stable. Exam Vital Signs Vital Sign - Last Date Time Temp Pulse Resp B/P Pulse Ox O2 Delivery O2 Flow Rate FiO2 12/07/16 08:53 64 12/07/16 04:51 36.9 20 151/75 90 Room Air Intake and Output 12/06/16 12/06/16 12/07/16 Cumulative From/Thru 15:00 23:00 07:00 12/06/16 17:00 - 12/07/16 06:05 Intake Total 999 ml 582 ml 1581 ml Output Total 900 ml 900 ml Balance 999 ml -318 ml 681 ml Intake Oral 0 ml 0 ml IV Total 999 ml 582 ml 1581 ml Output Urine Total 900 ml 900 ml # Bowel Movements 0 0 Exam General: No acute distress, well-nourished, somnolent but easily arousable Eyes: PERRLA, EOMI, anicteric sclera, mildly injected conjunctiva HENT: Normocephalic, atraumatic. Moist mucous membranes Neck: Supple with full range of motion. No jugular venous distension. No bruits. No thyromegaly. Cardiovascular: Regular rate and rhythm with no murmurs, rubs, or gallops appreciated Pulmonary: diffuse wheeze, good respiratory effort, crackles throughout. Abdomen: Bowel tones present. Soft, nontender, nondistended. No hepatosplenomegaly or masses appreciated. Extremities: No clubbing, cyanosis, edema, or lymphadenopathy appreciated. Skin: Normal temperature, turgor, and texture; no rash or subcutaneous nodules appreciated. Neurological: Nonfocal neurologic exam, no tremors noted, able to move all extremities spontaneously Psychiatric: Normal mood and affect. Lymph: no supraclavicular or cervical lymphadenopathy Lab and Diagnostics Result Diagram: 12/07/1654312/07/16543 X-Rays, CTs and MRIs Patient Name: CARLOS EDUARDO COLEMAN MR#: [id number] Location: [facility] [place] Ordering Phys: Robert Leal DO Date of Service: 12/06/16 9570 PROCEDURE: X-RAY CHEST ONE VIEW, PORTABLE ([id number]) INDICATIONS: aspiration TECHNIQUE: One view of the chest was acquired. COMPARISON: [facility], CR, XR CHEST 1VW (PORTABLE), 12/02/2016, 15: 25. FINDINGS: Surgical changes and devices: None. Lungs and pleura: There are increased confluent bilateral airspace opacities with a basilar predominance. A small left pleural effusion is redemonstrated. Mediastinum: Mediastinal contours appear unchanged. Heart size is normal. Bones and chest wall: No suspicious bony lesions. Overlying soft tissues appear unremarkable. IMPRESSION: 1. Increased confluent bilateral airspace opacities consistent with history of aspiration. 2. Persistent small left pleural effusion. Dictated by: Charlie Bang M.D. on 12/06/2016 at 18:30 Approved by: Charlie Bang M.D. on 12/06/2016 at 18:34 Assessment & Plan 86yoM with history of dementia, Parkinson's disease and A. fib not on warfarin with frequent UTIs and indwelling catheter re-admitted 24 hours after discharge for failure of outpatient treatment for PNA and increased confusion. Pneumonia, POA, acute -patient recently admitted for CAP however with history of aspiration in the setting of Parkinson's disease -CXR with increased consolidation from previous admission concerning for aspiration -unable to take PO as an outpatient and coughing up abx -procalcitonin continues to trend down, white count trending down -legionella urine antigen and strep pneumo antigen were neg last admission, influenza a/b neg, viral pcr neg -on augmentin, will continue and monitor Metobolic/Septic encephalopathy, acute, POA -worsening mentation since discharge home concerning for worsening infection however procal continue to trend down, alternatively potential medication side effect, non-focal exam leaves CVA less likely but not ruled out, worsening baseline dementia likely contributing factor -continue to monitor and treat as above Outpatient treatment failure, failure to thrive, acute, POA -patient with inability to take PO, most likely a/w worsening Parkinson's disease vs infection -pureed solids on discharge 12/05, will continue PO following repeat swallow evaluation -may require optimization of Parkinson's medications -PT / OT evaluation and treatment Urinary tract infection, present on admission, resolved - UA was positive for leukocyte esterase, nitrite, bacteria, and white blood cells greater than 50 per high-power field - Patient has indwelling Duval catheter is changed weekly by home health nurse - Urine culture positive for Ecoli > 100,000 last admission - urinalysis normal here - continue with amp-clavulanate as above Anemia, normocytic normochromic, present on admission, active - continue to monitor, improved since last admission however decreased PO intake Chronic problems Parkinson's disease - continued home Parkinson's medication - History of aspiration pneumonia - NPO at this time with mIVF - Speech swallow repeat eval for worsening PO intake and persistent aspiration - Palliative care consult BPH - Indwelling Duval catheter changed weekly - Hold oxybutynin while inpatient - Continue home medication tamsulosin 0.4 mg Gout, presumed stable Coronary artery disease, presumed stable Hypertension - metoprolol ER 25 mg daily Atrial fibrillation, - continue metoprolol ER 25 mg daily - Remote telemetry Dementia, presumed stable Depression, presumed stable - We will continue home medication quetiapine . Dispo: pending clinical improvement, and assessment by palliative care. GI Prophylaxis: Not indicated VTE Prophylaxis: Sub-Q Heparin (Unfractionated) Resuscitation Status: DNR/DNI:Do Not Resuscitate/Intubate Lars Barr MD Dec 07, 2016 13:15
[2016-12-07 13:59] VITALS: BP 138/68; PULSE 68; RESP 20; O2SAT 92
--- NOTE | 2016-12-07 14:45 | NUR ---
Skin/Duval: Blanchable redness and small flaking open area on sacrum, cleansed with Shield wipes, Mepilex replaced. Scrotum and penile redness, Duval catheter taunt at meatus, appeared to be small amount of blood, meatal care performed. Duval repositioned and secured. aware.
--- NOTE | 2016-12-07 15:17 | NUR ---
Social Work: Multidisciplinary Rounds Pt discussed in rounds. Pt is a recent readmit. MD states pt likely to remain in hospital for at least 2 days. Pt was set up with HH prior to d/c. PT met with pt today, currently recommending SNF. CLAY PROCESSING FACTORY WORKER acknowledges MD order for SNF. CLAY PROCESSING FACTORY WORKER will follow up with pt and family for initial assessment and SNF conversation tomorrow. NAVIN Cobb
[2016-12-07 20:31] VITALS: BP 161/65; PULSE 65; RESP 22; O2SAT 96
[2016-12-07] MEDS ORDERED: MeTOProlol XL 25 mg ER24 Tablet PO SCH (21:00)
[2016-12-07] MEDS: MEMANTINE 28 MG PO SCH (21:08)
[2016-12-07] MEDS: Pt Own Med->Topical Med TOPICAL SCH (21:09)
[2016-12-08] MEDS: Heparin 5,000 Unit/mL Inj SUBQ SCH ×2 (00:25→09:42)
[2016-12-08] MEDS: Ampicillin-Sulbactam Inj 1,500 MG in 0.9% Sodium Chloride 50 ML IV SCH ×3 (00:27→11:44)
[2016-12-08 04:55] VITALS: BP 163/76; PULSE 74; RESP 23; O2SAT 92
[2016-12-08 06:03] LABS: BASOPHILS % (AUTO) 0.1 % (0-3); EOSINOPHILS % (AUTO) 3.7 % (0-5); MONOCYTES % (AUTO) 13.6 % (4-12); Mean Corpuscular Volume 94.3 fL (81-100); NEUTROPHILS % (AUTO) 69.3 % (40-74); Platelet Count 254 bil/L (150-400)
--- NOTE | 2016-12-08 06:44 | NUR ---
Noc Assume care around 0400 from Clement Forbes RN. Pt denies chest pain, sob, n/v or abd discomfort. VSS and has been afebrile. Q2 turning and repositioning provided. Intentional hourly rounding done.
[2016-12-08] MEDS: 0.9% Sodium Chloride 1,000 ML IV SCH (07:16)
[2016-12-08] MEDS: Entacapone 200 mg Tablet PO SCH (09:42)
--- NOTE | 2016-12-08 10:53 | NUR ---
Social Work: Initial Assessment / Readiness for d/c / Multidisciplinary Rounds Data: Pt is an 86 y/o male admitted for aspiration pneumonia, AMS. Pt's PCP is Dr Go, pt's insurance is Medicare [facility]. EMR reviewed. Readmit score is 4, high. Pt discussed in rounds. MD states pt likely ready for d/c today medically. Palliative has been consulted but is not in until Friday. states this can possibly be done outpt and he will look into this. FULLING MACHINE OPERATOR acknowledges MD order for SNF. FULLING MACHINE OPERATOR spoke with pt's daughter via phone to complete initial assessment as pt not appropriate at this time. Role explained. She states pt lives with her and her on [address] where there are no stairs, pt uses a walker, does not drive, has hx of HH with [facility], no SNF hx, no LTC or VA benefits, and is not a caregiver. FULLING MACHINE OPERATOR explained MD and PT recommendation for SNF, choice list verbally given. She states their first choice is [facility] and second is [facility]. FULLING MACHINE OPERATOR spoke with [facility], access given. She will call back with decision regarding acceptance or not, but states they spoke with pt's daughter yesterday and most likely can take pt. Assessment: Pt with caregiving at baseline. Plan: Pt will d/c likely to SNF, [facility] referred. NAVIN will continue to follow. looking into if Palliative can be set up outpt. NAVIN Cobb Addendum: 12/08/16 at 1100 by AMANDA GOLD Amended: Links added.
--- NOTE | 2016-12-08 11:31 | PCM.DIMED ---
Discharge Instructions Date of Service Dec 08, 2016 Dates of Hospitalization Dec 06, 2016 at 21:19 Discharge Diagnosis Discharge Diagnosis Sepsis 2/2 UTI Deconditioning Aspiration pneumonitis Diet Discharge Diet: Heart Healthy Activity Discharge Activity: Other (PT/OT at SNF) Patient Instructions Follow-up with PCP in: 2 weeks Additional Information Patient/Family needs palliative care consult and follow up. Lars Barr MD Dec 08, 2016 11:31
[2016-12-08] MEDS ORDERED: [UNRECOGNIZED DRUG - CODE] IJ (11:34)
--- NOTE | 2016-12-08 12:12 | NUR ---
Social Work: Discharge Data: Pt is on day 2 of hospitalization. EMR reviewed. D/C orders are in. ASSISTANT DIRECTOR OF PLANT OPERATIONS spoke with [facility] regarding transportation, they set up transportation for 1:00pm today via wheel chair van. ASSISTANT DIRECTOR OF PLANT OPERATIONS notified MD RN, pt's daughter. requested outpt Palliative care appointment be set up for pt and family once at facility. No further d/c planning needed at this time. ASSISTANT DIRECTOR OF PLANT OPERATIONS will continue to follow if needs arise. Assessment: Pt with caregiving at baseline. Plan: Pt will d/c to [facility] today at 1:00pm via wheelchair van. No further d/c planning needed at this time. ASSISTANT DIRECTOR OF PLANT OPERATIONS will continue to follow if needs arise. NAVIN Cobb
--- NOTE | 2016-12-08 12:33 | PCM.DC.MED ---
Discharge Summary Date of Service Dec 08, 2016 Dates of Hospitalization Date of Hospital Admission Dec 06, 2016 at 21:19 Date of Discharge: Dec 08, 2016 Providers: Admitting Physician: Erin Chau DO Primary Care Physician: Shayla Go Attending Physician: Violet Lynn MD Diagnosis at Time of Discharge Diagnosis at Time of Discharge Sepsis 2/2 UTI Deconditioning Aspiration pneumonitis Procedures XRay, CTs & MRIs Patient Name: CARLOS EDUARDO COLEMAN MR#: [id number] Location: [facility] [place] Ordering Phys: Robert Leal DO Date of Service: 12/06/16 1719 PROCEDURE: X-RAY CHEST ONE VIEW, PORTABLE ([id number]) INDICATIONS: aspiration TECHNIQUE: One view of the chest was acquired. COMPARISON: [facility], CR, XR CHEST 1VW (PORTABLE), 12/02/2016, 15: 25. FINDINGS: Surgical changes and devices: None. Lungs and pleura: There are increased confluent bilateral airspace opacities with a basilar predominance. A small left pleural effusion is redemonstrated. Mediastinum: Mediastinal contours appear unchanged. Heart size is normal. Bones and chest wall: No suspicious bony lesions. Overlying soft tissues appear unremarkable. IMPRESSION: 1. Increased confluent bilateral airspace opacities consistent with history of aspiration. 2. Persistent small left pleural effusion. Dictated by: Charlie Bang M.D. on 12/06/2016 at 18:30 Approved by: Charlie Bang M.D. on 12/06/2016 at 18:34 Brief History 86yoM with history of dementia, Parkinson's disease and A. fib not on warfarin with frequent UTIs and indwelling catheter re-admitted 24 hours after discharge for failure of outpatient treatment for PNA and increased confusion. Mr. Coleman was recently admitted from 12/02-12/05 and was initially admitted with findings of sepsis secondary to urinary tract infection as well concerns for community acquired vs aspiration pneumonia. He does have a history of these and since returning home on 12/05 he has had increasing difficulties with ambulation, confusion and taking PO. His daughter is at the bedside and is able to give information regarding the past 24 hours. While the family has a home health nurse and family around 24 hours a day they have found it difficult to get Mr. Coleman to the toilet. While he regularly uses a walker he is unable to do this returning home. He also has aspirated on a few occasions and has been unable to take his PO antibiotics even with coaching from family and home health. Prior to return to the hospital Mr. Coleman has been unable to recognize his family members and become increasingly confused. When asked upon admission if he has any complaints he denies any discomforts and denies chest pain, shortness or breath, abdominal pain. He has had minimal BM since returning home and daughter denies diarrhea. Discussion with daughter reveals that they are concerned about the decline they have seen in Mr. Gabe reynolds since the of his 07/2016. They would like to explore options regarding SNF vs home placement and possible hospice options weighing the risk / benefits of returning to the hospital in the future. His daughter did consider not returning to the hospital for the current visit but decided it best for evaluation. Hospital Course 86yoM with history of dementia, Parkinson's disease and A. fib not on warfarin with frequent UTIs and indwelling catheter re-admitted 24 hours after discharge for failure of outpatient treatment for PNA and increased confusion. Pneumonia, POA, acute -patient recently admitted for CAP however with history of aspiration in the setting of Parkinson's disease -CXR with increased consolidation from previous admission concerning for aspiration -procalcitonin continues to trend down, white count trending down -legionella urine antigen and strep pneumo antigen were neg last admission, influenza a/b neg, viral pcr neg -was on augmentin, started on unasyn inpatient, will continue for another 4 days in the setting of aspiration Metobolic/Septic encephalopathy, acute, POA -worsening mentation since discharge home concerning for worsening infection however procal continue to trend down, alternatively potential medication side effect, non-focal exam leaves CVA less likely but not ruled out, worsening baseline dementia likely contributing factor -continue to monitor and treat as above Outpatient treatment failure, failure to thrive, acute, POA -patient with inability to take PO, most likely a/w worsening Parkinson's disease vs infection -pureed solids on discharge 12/05, will continue PO following repeat swallow evaluation -may require optimization of Parkinson's medications -PT / OT evaluation and treatment Urinary tract infection, present on admission, resolved - UA was positive for leukocyte esterase, nitrite, bacteria, and white blood cells greater than 50 per high-power field - Patient has indwelling Duval catheter is changed weekly by home health nurse - Urine culture positive for Ecoli > 100,000 last admission - urinalysis normal here - continue with unasyn to complete sonny course Anemia, normocytic normochromic, present on admission, active - continue to monitor, improved since last admission however decreased PO intake Chronic problems Parkinson's disease - continued home Parkinson's medication - History of aspiration pneumonia - NPO at this time with mIVF - Speech swallow repeat eval for worsening PO intake and persistent aspiration - Palliative care consult BPH - Indwelling Duval catheter changed weekly - Hold oxybutynin while inpatient - Continue home medication tamsulosin 0.4 mg Gout, presumed stable Coronary artery disease, presumed stable Hypertension - metoprolol ER 25 mg daily Atrial fibrillation, - continue metoprolol ER 25 mg daily - Remote telemetry Dementia, presumed stable Depression, presumed stable - We will continue home medication quetiapine . Dispo:longterm. Exam Vital Signs (Last) Date Time Temp Pulse Resp B/P Pulse Ox O2 Delivery O2 Flow Rate FiO2 12/08/16 04:55 36.5 74 23 163/76 92 Room Air Test 12/06/16 19:05 12/06/16 20:18 12/07/16 05:44 12/08/16 05:20 Lactic Acid Level 1.1mmol/L (0.4-2.0) Magnesium Level 1.9mg/dL (1.6-2.6) Total Bilirubin 0.8mg/dL (0.0-1.2) Aspartate Amino Transf (AST/SGOT) 25U/L (0-50) Alanine Aminotransferase (ALT/SGPT) 6U/L (0-44) Alkaline Phosphatase 74U/L (25-160) Troponin T < 0.010ug/L (0.0-0.011) Total Protein 6.9g/dL (6.4-8.4) Urine Color [place] (YELLOW) Urine Appearance Cloudy (CLEAR,HAZY) Urine pH 6.0 (5.0-8.0) Urine Specific [place] 1.028 (1.003-1.035) Urine Protein 300mg/dL (NEG,TRACE) Urine Glucose (UA) Negativemg/dL (NEGATIVE) Urine Ketones Tracemg/dL (NEGATIVE) Urine Occult Blood Large (NEGATIVE) Urine Nitrite Negative (NEGATIVE) Urine Bilirubin Negative (NEGATIVE) Urine Urobilinogen Normalmg/dL (NORMAL) Urine Leukocyte Esterase Small (NEGATIVE) Urine RBC >50/hpf (0-2) Urine WBC >50/hpf (0-5) Urine Epithelial Cells Few/hpf (NONE-MOD) Urine Crystals None seen (NONE SEEN) Urine Bacteria Few/hpf (NONE-FEW) Urine Hyaline Casts None/lpf (NONE) Urine Granular Casts None seen (NONE SEEN) Urine Waxy Casts None seen (NONE SEEN) Urine Red Blood Cell Casts None seen (NONE SEEN) Urine White Blood Cell Casts None seen (NONE SEEN) Urine Mucus None seen (None Seen) Urine Trichomonas None seen (NONE SEEN) Urine Yeast None (NONE SEEN) Urinalysis Comment None Urine Culture Reflexed Indicated Albumin 2.5g/dL (3.4-5.0) Prealbumin 7mg/dL (20-40) White Blood Count 8.3th/mm3 (3.8-10.1) Red Blood Count 3.48mil/mm3 (4.40-5.80) Hemoglobin 10.8g/dL (13.8-17.2) Hematocrit 32.8% (41.0-50.0) Mean Corpuscular Volume 94.3fL (81-100) Mean Corpuscular Hemoglobin 31.0pg (27.0-35.0) Mean Corpuscular Hemoglobin Concent 32.9% (32.0-37.0) Red Cell Distribution Width 14.0% (12.3-15.4) Platelet Count 254bil/L (150-400) Neutrophils (%) (Auto) 69.3% (40-74) Lymphocytes (%) (Auto) 12.2% (14-46) Monocytes (%) (Auto) 13.6% (4-12) Eosinophils (%) (Auto) 3.7% (0-5) Basophils (%) (Auto) 0.1% (0-3) Sodium Level 144mEq/L (134-144) Potassium Level 3.5mEq/L (3.5-5.2) Chloride Level 108mEq/L (97-108) Carbon Dioxide Level 22mmol/L (18-29) Blood Urea Nitrogen 17mg/dL (8-27) Creatinine 0.70mg/dL (0.76-1.27) Estimat Glomerular Filtration Rate 113mL/min (>59) Glucose Level 91mg/dL (60-99) Calcium Level 8.0mg/dL (8.5-10.1) Procalcitonin 0.47ng/mL (0.00-0.08) Discharge Medications Discharge Medications Amlodipine (Amlodipine) 2.5 Mg Tablet 2.5 MG PO DAILY (Reported) Ampicillin Sodium/Sulbactam Na (Unasyn 1.5 gm Vial) 1.5 Gm Vial 1.5 GM IJ QID Prescribed by: VIOLET LYNN MD Carbidopa/Levodopa 25-100 mg (Carbidopa/Levodopa 25-100 mg) 1 Each Tablet 1 TABLET PO BID in AM and 1400 (Reported) Carbidopa/Levodopa 25-100 mg (Carbidopa/Levodopa 25-100 mg) 1 Each Tablet 2 TABLET PO daily at 1800 (Reported) Entacapone (Entacapone) 200 Mg Tablet 200 MG PO BID AM and 1400 (Reported) Finasteride (Finasteride) 5 Mg Tablet 5 MG PO DAILY (Reported) Guaifenesin (Mucinex) 600 Mg Tablet.er 600 MG PO BID Prescribed by: VIOLET LYNN MD Ipratropium/Albuterol Sulfate (Iprat-Albut 0.5-3(2.5) mg/3 mL Inhalant Soln) 3 Ml Ampul.neb 3 ML NEB Q6 Prescribed by: VIOLET LYNN MD Lactose-Free Food (Ensure Plus) 237 Ml Liquid 237 ML PO TID Prescribed by: SUNITA JAMES DO Memantine HCl (Namenda-XR) 28 Mg Cap.spr.24 28 MG PO QPM (Reported) Metoprolol Succinate ER (Metoprolol Succinate ER) 25 Mg Tab.er.24h 25 MG PO QPM (Reported) Quetiapine Fumarate (Seroquel) 25 Mg Tablet 75 MG PO HS (Reported) Rivastigmine (Rivastigmine) 13.3 Mg/24 Hour Patch.td24 2 PATCH TRANSDERM DAILY ( Reported) Sennosides (Senna) 8.6 Mg Tablet 25.8 MG PO DAILY (Reported) As needed Oxybutynin Chloride ER (Oxybutynin Chloride ER) 5 Mg Tab.er.24 5 MG PO DAILY PRN PRN BLADDER SPASM (Reported) Followup Plan Disposition: longterm for conditioning. Discussed with patient's daughter about getting palliative care involved. She agreed. Discharge Diet: Heart Healthy Discharge Activity: Other (PT/OT at SNF) Follow-up with PCP in: 2 weeks Time spent 45 mins Violet Lynn MD Dec 08, 2016 12:32
--- NOTE | 2016-12-08 13:32 | NUR ---
Discharge: Patient discharged to [facility] at approx 1330 via wheelchair and [facility] transportation. IV d/c'd intact. Patient toileted and brief change prior to transport. Patient belongings, including two home medications and personal walker sent with patient's daughter. Report called to Andree at [facility]. No apparent distress noted at time of discharge.
== END 2016-12-08 13:20 | DRG 177 ==
LOC: SED 16:52 → MPC 21:19
PROVIDERS: ADMIT Internal Medicine; ATTEND Internal Medicine
DX: J69.0 Pneumonitis due to inhalation of food and vomit (principal); G93.40 Encephalopathy, unspecified; R62.7 Adult failure to thrive; G20 Parkinson's disease; F02.80 Dementia in other diseases classified elsewhere, unspecified severity, without behavioral disturbance, psychotic disturbance, mood disturbance, and anxiety; L89.151 Pressure ulcer of sacral region, stage 1; N40.0 Benign prostatic hyperplasia without lower urinary tract symptoms; M10.9 Gout, unspecified; I25.10 Atherosclerotic heart disease of native coronary artery without angina pectoris; F32.9 Major depressive disorder, single episode, unspecified; Z66 Do not resuscitate; Z87.440 Personal history of urinary (tract) infections; D64.9 Anemia, unspecified

== ENCOUNTER 2016-12-18 13:05 | Inpatient (IN) | payer MEDICARE, OTHER ==
[~2016-12-18] VITALS: Ht 182.9 cm; Wt 71.3 kg
[2016-12-18] VITALS (10 sets, daily range): BP systolic 88–113; BP diastolic 47–54; PULSE 89–118; RESP 18–47; O2SAT 89–99
[~2016-12-18 13:05] MED LIST changes: -AMOX1TAB11 PO; +[UNRECOGNIZED DRUG - CODE] IJ
--- NOTE | 2016-12-18 13:26 | ED.REPORT ---
HPI-Dyspnea / Wheezing Date of Service Dec 18, 2016 ED Provider: Evangelista Goodson MD The pt is a 86 y/o male w/ a hx of dementia, HTN, CAD, and Parkinsons presenting to the ED via EMS due to SOB onset 0800. Per EMS the pt had an SaO2 of 89% and a RR of 38x/min on arrival. They gave him a DuoNeb treatment and a dose of Albuterol which helped reduce his symptoms. The pt also had a recent dx of pneumonia 12 days ago, was hospitalized, and is on antibiotics. They were also hospitalized w/ acute respiratory failure 16 days ago. Nursing Notes Stated Complaint: SOB Chief Complaint: Respiratory Distress Nursing Notes Reviewed: Yes Allergies: Coded Allergies: No Known Allergies (Unverified Allergy, Unknown, 07/22/15) Scheduled Amlodipine (Amlodipine) 2.5 Mg Tablet 2.5 MG PO DAILY Carbidopa/Levodopa 25-100 mg (Carbidopa/Levodopa 25-100 mg) 1 Each Tablet 1 TABLET PO BID in AM and 1400 Carbidopa/Levodopa 25-100 mg (Carbidopa/Levodopa 25-100 mg) 1 Each Tablet 2 TABLET PO daily at 1800 Entacapone (Entacapone) 200 Mg Tablet 200 MG PO BID AM and 1400 Finasteride (Finasteride) 5 Mg Tablet 5 MG PO DAILY Guaifenesin (Mucinex) 600 Mg Tablet.er 600 MG PO BID Ipratropium/Albuterol Sulfate (Iprat-Albut 0.5-3(2.5) mg/3 mL Inhalant Soln) 3 Ml Ampul.neb 3 ML NEB Q6 Memantine HCl (Namenda-XR) 28 Mg Cap.spr.24 28 MG PO QPM Metoprolol Succinate ER (Metoprolol Succinate ER) 25 Mg Tab.er.24h 25 MG PO QPM Vits #93/Iron Fum/FA ( Formula Tablet) 1 Each Tablet 1 EACH PO DAILY Quetiapine Fumarate (Seroquel) 25 Mg Tablet 75 MG PO HS Rivastigmine (Rivastigmine) 13.3 Mg/24 Hour Patch.td24 2 PATCH TRANSDERM DAILY Saccharomyces Boulardii (Florastor) 250 Mg Capsule 250 MG PO BID Sennosides (Senna) 8.6 Mg Tablet 25.8 MG PO QAM Scheduled PRN Acetaminophen (Acetaminophen) 325 Mg Tablet 1-2 EACH PO Q4H PRN PRN For Pain Oxybutynin Chloride ER (Oxybutynin Chloride ER) 5 Mg Tab.er.24 5 MG PO DAILY PRN PRN BLADDER SPASM General Time Seen by MD: 13:23 Chief Complaint Shortness of breath Hx Obtained From: Patient, EMS Arrived By: Ambulance Sudden in Onset?: Yes Onset Occurred: 5 - 8 hours ago Symptom Duration: Since onset Recent Healthcare: Recent doctor visit, Recent hospitalization Similar Sx Previous: Yes Past Medical History Past Medical History Parkinson's disease History of aspiration pneumonia BPH Gout Reports: Coronary artery disease, Hypertension Reports: Atrial fibrillation, Dementia, Depression Past Surgical History Skin graft Reports: Cataract surgery, Tonsillectomy Smoking History Former Smoker Social History Lives with daughter and son in law Alcohol Use: "Social" Drug Use: Denies drug use Ambulatory Status Independent Review of Systems Respiratory: Reports: Shortness of breath Complete sys rev & neg: except as marked. Physical Exam Initial Vital Signs Vital Signs (First) Date Time Temp Pulse Resp B/P Pulse Ox O2 Delivery O2 Flow Rate FiO2 12/18/16 13:22 36.9 118 47 105/50 89 Non-Rebreather 15 12/18/16 14:34 80 Initial VS: Reviewed General/Constitutional: Awake, Alert Appearance / Presentation: Positive: Pale Neck: Atraumatic, Supple, Full range of motion Respiratory / Chest: Breath sounds = bilat, No chest wall deformity Coarse breath sounds bilat Cardiovascular: Regular rhythm, Heart sounds NL Heart Rate / Rhythm: Positive: Tachycardia ENT: Airway patent, Mucous membranes moist Abdomen: Soft Tenderness/Guarding/Rebound: Positive: Tender diffuse Back: Atraumatic, Full range of motion Lower Extremity / Pelvis / MS: Atraumatic, Full range of motion, No deformity Skin: No rash, Warm, Dry Poor skin turgor Neurologic: Oriented X3, No motor deficits Head / Eyes: Normocephalic, PERRL Upper Extremity / MS: Full range of motion, No deformity Psychiatric: Affect NL, Mood NL Interpretation & Diagnostics Lab Results Interpretation Result Diagram: 12/19/16 0345 12/19/16 0345 Test 12/18/16 13:40 12/18/16 14:08 Magnesium Level 2.0mg/dL (1.6-2.6) Troponin T < 0.010ug/L (0.0-0.011) Pro-B-Type Natriuretic Peptide 2721pg/mL (0-486) Urine Color Dark yellow (YELLOW) Urine Appearance Turbid (CLEAR,HAZY) Urine pH 6.0 (5.0-8.0) Urine Specific [place] 1.020 (1.003-1.035) Urine Protein >300mg/dL (NEG,TRACE) Urine Glucose (UA) Negativemg/dL (NEGATIVE) Urine Ketones Tracemg/dL (NEGATIVE) Urine Occult Blood Large (NEGATIVE) Urine Nitrite Positive (NEGATIVE) Urine Bilirubin Negative (NEGATIVE) Urine Urobilinogen Normalmg/dL (NORMAL) Urine Leukocyte Esterase Large (NEGATIVE) Urine RBC 0-2/hpf (0-2) Urine WBC Packed/hpf (0-5) Urine Epithelial Cells Occasional/hpf (NONE-MOD) Urine Crystals None seen (NONE SEEN) Urine Bacteria Many/hpf (NONE-FEW) Urine Hyaline Casts None/lpf (NONE) Urine Granular Casts None seen (NONE SEEN) Urine Waxy Casts None seen (NONE SEEN) Urine Red Blood Cell Casts None seen (NONE SEEN) Urine White Blood Cell Casts None seen (NONE SEEN) Urine Mucus None seen (None Seen) Urine Trichomonas None seen (NONE SEEN) Urine Yeast None (NONE SEEN) Urinalysis Comment None Urine Culture Reflexed Indicated ECG Interpretation ECG Interpretation: Rate 117 A-fib T-wave aversion V1, v4 Time: 13:34 X-Ray Chest Interpretation Chest Xray Interpretation: IMPRESSION: Increased interstitial infiltrates in right lung and left basilar consolidation. Dictated by: Rao Garcia M.D. on 12/18/2016 at 14:12 Approved by: Rao Garcia M.D. on 12/18/2016 at 14:15 View: Portable, 1 view Interpretation / Wet Read by: Interpret - Radiologist Re-Eval/Medical Decision Med Decision/Clinical Course A 6-year-old male history of Parkinson's disease and recurrent aspiration pneumonias and chronic indwelling Duval presenting with respiratory distress. Patient arrived in severe respiratory distress. Significant work of breathing. He was placed on a high flow oxygen mask and his respiratory status improved. He has a leukocytosis, pneumonia and UTI suggested by urine from his Duval. Suspect aspiration pneumonia cannot rule out UTI. He did have a plugged Duval catheter that was replaced with residual 100 MLs. Patient will be admitted for aspiration pneumonia and possible UTI, sepsis. Patient was given dose of broad-spectrum antibiotics including vancomycin, Levaquin, Zosyn and Flagyl. Consultation : Referral / Consult Name: Lucien Munguia MD Call Returned at: 14:22 Improvement Nurse: Will see patient, Agrees with eval, Agrees with plan, Accepts admit Counseled Regarding: Diagnosis, Lab results, Need for admission Discharge & Departure Impression: Primary Impression: Sepsis Sepsis type: sepsis due to unspecified organism Qualified Code: A41.9 - Sepsis, unspecified organism Additional Impressions: Pneumonia Pneumonia type: due to unspecified organism Laterality: unspecified laterality Lung location: unspecified part of lung Qualified Code: J18.9 - Pneumonia, unspecified organism UTI (urinary tract infection) Urinary tract infection type: site unspecified Hematuria presence: without hematuria Qualified Code: N39.0 - Urinary tract infection, site not specified Disposition: ADMITTED TO HOSPITAL Discharge Condition All VS Reviewed: Yes Condition: Stable Referrals: Shayla Go (PCP) Crit Care Except Billable Proc Time Spent: 30-74 minutes Services Performed: Patient management by me, Time spent at bedside, Reviewing test results, Reviewing imaging, Discussing patient care, Documentation in record Scribe Attestation Portions of this note were transcribed by Doroteo Guillaume. I, Dr. Goodson personally performed the history, physical exam and medical decision-making; I reviewed and confirmed the accuracy of the information in the transcribed note. Signed by: Kellie George, 12/18/16 and 1430. copies to: Shayla Go Ben M MD Dec 18, 2016 13:26 Doroteo Guillaume Dec 18, 2016 13:57 None/lpf (NONE) Urine Granular Casts None seen (NONE SEEN) Urine Waxy Casts None seen (NONE SEEN) Urine Red Blood Cell Casts None seen (NONE SEEN) Urine White Blood Cell Casts None seen (NONE SEEN) Urine Mucus None seen (None Seen) Urine Trichomonas None seen (NONE SEEN) Urine Yeast None (NONE SEEN) Urinalysis Comment None Urine Culture Reflexed Indicated ECG Interpretation ECG Interpretation: Rate 117 A-fib T-wave aversion V1, v4 Time: 13:34 X-Ray Chest Interpretation Chest Xray Interpretation: IMPRESSION: Increased interstitial infiltrates in right lung and left basilar consolidation. Dictated by: Rao Garcia M.D. on 12/18/2016 at 14:12 Approved by: Rao Garcia M.D. on 12/18/2016 at 14:15 View: Portable, 1 view Interpretation / Wet Read by: Interpret - Radiologist Re-Eval/Medical Decision Consultation : Referral / Consult Name: Lucien Munguia MD Call Returned at: 14:22 Improvement Nurse: Will see patient, Agrees with eval, Agrees with plan, Accepts admit Counseled Regarding: Diagnosis, Lab results, Need for admission Discharge & Departure Impression: Primary Impression: Sepsis Sepsis type: sepsis due to unspecified organism Qualified Code: A41.9 - Sepsis, unspecified organism Additional Impressions: Pneumonia Pneumonia type: due to unspecified organism Laterality: unspecified laterality Lung location: unspecified part of lung Qualified Code: J18.9 - Pneumonia, unspecified organism UTI (urinary tract infection) Urinary tract infection type: site unspecified Hematuria presence: without hematuria Qualified Code: N39.0 - Urinary tract infection, site not specified Disposition: ADMITTED TO HOSPITAL Discharge Condition All VS Reviewed: Yes Condition: Stable Referrals: Shayla Go (PCP) Crit Care Except Billable Proc Time Spent: 30-74 minutes Services Performed: Patient management by me, Time spent at bedside, Reviewing test results, Reviewing imaging, Discussing patient care, Documentation in record Scribe Attestation Portions of this note were transcribed by Doroteo Guillaume. I, Dr. Goodson personally performed the history, physical exam and medical decision-making; I reviewed and confirmed the accuracy of the information in the transcribed note. Signed by: Kellie George, 12/18/16 and 1430. copies to: Shayla Go Ben M MD Dec 18, 2016 13:26 Doroteo Guillaume Dec 18, 2016 13:57
[2016-12-18] MEDS ORDERED: Albuterol-Ipratropium 3 mL Inhalation Solution NEB ONE (13:35)
[2016-12-18 13:51] LABS: BASOPHILS % (AUTO) 0.1 % (0-3); EOSINOPHILS % (AUTO) 0 % (0-5)
[2016-12-18 14:02] LABS: MONOCYTES % (AUTO) 4.7 % (4-12); Mean Corpuscular Hemoglobin 30.6 pg (27.0-35.0); Mean Corpuscular Volume 93.1 fL (81-100); NEUTROPHILS % (AUTO) 90.4 % (40-74); Platelet Count 472 bil/L (150-400)
--- NOTE | 2016-12-18 14:17 | DRSVH ---
PROCEDURE: X-RAY CHEST ONE VIEW, PORTABLE ([id number]) INDICATIONS: dyspnea TECHNIQUE: One view of the chest was acquired. COMPARISON: [facility], CR, XR CHEST 1VW (PORTABLE), 09/14/2015, 21:43. [facility], CR, XR CHEST 1VW (PORTABLE), 12/02/2016, 15:25. [facility], CR, XR CHEST 1VW (POR TABLE), 12/06/2016, 17:49. FINDINGS: Surgical changes and devices: None. Lungs and pleura: There are interstitial infiltrates in right lung and left basilar consolidation, i ncreased. Small bilateral pleural effusions . No pneumothorax. Mediastinum: Mediastinal contours appear normal. Heart size is normal. Bones and chest wall: No suspicious bony lesions. Overlying soft tissues appear unremarkable. Supe rior migration of humeral heads suggest rotator cuff tendinopathy. IMPRESSION: Increased interstitial infiltrates in right lung and left basilar consolidation. Dictated by: Rao Garcia M.D. on 12/18/2016 at 14:12 Approved by: Rao Garcia M.D. on 12/18/2016 at 14:15
[2016-12-18 14:19] LABS: TROPONIN T < 0.010 ug/L (0.0-0.011)
[2016-12-18 14:23] LABS: APPEARANCE,URINE TURBID (CLEAR,HAZY); COLOR,URINE DARK YELLOW (YELLOW); OCCULT BLOOD,URINE LARGE (NEGATIVE)
[2016-12-18 14:27] LABS: UROBILINOGEN,URINE NORMAL (NORMAL)
[2016-12-18] MEDS ORDERED: SACC250C PO (14:32)
[2016-12-18] MEDS ORDERED: ACET325T51 PO (14:32)
[2016-12-18] MEDS ORDERED: PREN-105 PO (14:32)
[2016-12-18] MEDS ORDERED: Piperacillin-Tazo 3.375 Gm Inj 3.375 GM in Dextrose 5% Minibag Plus 50 ML IV ONE (14:35)
[2016-12-18] MEDS ORDERED: metroNIDAZOLE Inj 500 MG in IV Premix 1 EACH IV ONE (14:35)
[2016-12-18] MEDS ORDERED: Vancomycin Dose per Pharmacist XX ONE (14:35)
[2016-12-18] MEDS ORDERED: levoFLOXacin Inj 750 MG in IV Premix 1 EACH IV ONE (14:35)
[2016-12-18] MEDS ORDERED: Ondansetron 2 mg/mL 2 mL Inj IVPUSH PRN (14:40)
[2016-12-18] MEDS ORDERED: Alum-Mag Hydrox-Simeth 30 mL Suspension PO PRN ×2 (14:40→16:10)
[2016-12-18] MEDS ORDERED: Vancomycin Inj 1,500 MG in 0.9% Sodium Chloride 500 ML IV ONE (15:05)
[2016-12-18] MEDS ORDERED: Polyethylene Glycol (PEG) 17 Gm Powder PO PRN (16:10)
--- NOTE | 2016-12-18 17:54 | PCM.HPMED ---
Subjective Date of Service Dec 18, 2016 Primary Provider: Admitting Physician: Lucien Munguia MD Primary Care Physician: Shayla Go Attending Physician: Lucien Munguia MD Admit Status: From the Emergency Department, Full Admit, Admit to [facility] Team, [facility] Telemetry Chief Complaint: Dyspnea, cough, urinary retention. History of Present Illness: This is an 86-year-old male with a history of Parkinson's and dementia. He recently was admitted with probable aspiration pneumonia as well as urinary tract infection. He is a chronic indwelling Duval catheter for approximately one year. The patient was treated for both pneumonia and cystitis and discharged back to [facility] for rehabilitation stay. Patient has a history DYSPHAGIA secondary to his Parkinson's. He also has a propensity for dehydration. The patient has a honey thick diet currently and had been doing recently well albeit with decreased by mouth intake until about yesterday. Over the last 24 hours is having productive cough complained of dyspnea becomes somewhat more confused. He was brought by a bolus to the emergency department. There is a catheter was removed and a new one replaced with about 700 mils of urine indicating urine retention. The patient's daughter notes that she is dehydrated he tends to plug his catheter. She also notes that he has had a progression versus a more dramatic since his last hospitalization of immobility and that he had been able to walk and eat reasonably well prior to his previous admission. No other information is available as she was not with him at the custodial facility. The patient is comfortable but really cannot answer any further detailed questions. ROS subjective not otherwise obtainable secondary to cognitive impairment. Review of Systems: Not obtainable due to cognitive impairment. Allergies Coded Allergies: No Known Allergies (Unverified Allergy, Unknown, 07/22/15) Home Medications Amlodipine (Amlodipine) 2.5 Mg Tablet 2.5 MG PO DAILY Carbidopa/Levodopa 25-100 mg (Carbidopa/Levodopa 25-100 mg) 1 Each Tablet 1 TABLET PO BID in AM and 1400 Carbidopa/Levodopa 25-100 mg (Carbidopa/Levodopa 25-100 mg) 1 Each Tablet 2 TABLET PO daily at 1800 Entacapone (Entacapone) 200 Mg Tablet 200 MG PO BID AM and 1400 Finasteride (Finasteride) 5 Mg Tablet 5 MG PO DAILY Guaifenesin (Mucinex) 600 Mg Tablet.er 600 MG PO BID Ipratropium/Albuterol Sulfate (Iprat-Albut 0.5-3(2.5) mg/3 mL Inhalant Soln) 3 Ml Ampul.neb 3 ML NEB Q6 Memantine HCl (Namenda-XR) 28 Mg Cap.spr.24 28 MG PO QPM Metoprolol Succinate ER (Metoprolol Succinate ER) 25 Mg Tab.er.24h 25 MG PO QPM Vits #93/Iron Fum/FA ( Formula Tablet) 1 Each Tablet 1 EACH PO DAILY Quetiapine Fumarate (Seroquel) 25 Mg Tablet 75 MG PO HS Rivastigmine (Rivastigmine) 13.3 Mg/24 Hour Patch.td24 2 PATCH TRANSDERM DAILY Saccharomyces Boulardii (Florastor) 250 Mg Capsule 250 MG PO BID Sennosides (Senna) 8.6 Mg Tablet 25.8 MG PO QAM Scheduled PRN Acetaminophen (Acetaminophen) 325 Mg Tablet 1-2 EACH PO Q4H PRN PRN For Pain Oxybutynin Chloride ER (Oxybutynin Chloride ER) 5 Mg Tab.er.24 5 MG PO DAILY PRN PRN BLADDER SPASM PMH Parkinson's disease Dementia 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 No distress. Fluent speech. Lethargic. Minimally interactive. Patient follows commands. He moves all extremities when asked to. Normal skull. Normal nose and ears. Anicteric sclera, symmetric pupils Oropharynx is unremarkable, no facial droop. Neck is supple, normal thyroid. No adenopathy. Lungs are normal for rhonchi which are scattered on all lung perkins bilaterally. Normal rate and effort. Heart is regular without murmur gallop or rub. Abdomen soft, nondistended or tender. Flat. Extremities are free of pedal edema. Good radial and pedal pulses. Skin is also an area of erythema around the perineum and perianal region. Some early skin white count consistent with an early pressure injury. Patient also has erythema in the perineum and a Duval catheter in place.. No petechiae or ecchymosis. Joints are grossly normal. Cranial nerves are grossly normal. Motor strength is present in all extremities, decreased muscle tone and mass. Normal muscular tone. Lab and Diagnostics Result Diagram: 12/18/16 1340 12/18/16 1340 Assessment & Plan Aspiration pneumonia, POA. The plan will be to treat the patient was Zosyn empirically. He was given broad-spectrum antibiotics including vancomycin for the possibility of age But his clinical course is more consistent with recurrent aspiration. The patient will also be hydrated. The patient is DO NOT RESUSCITATE and DO NOT INTUBATE. This was confirmed with his daughter. Urinary retention, POA. Duval catheter was plugged and has now been replaced. Recurrent pyelonephritis, POA. Empiric antibiotics as above and await culture. Dysphagia, POA. Initial BMP WITH a swallow evaluation after hydrated. Volume depletion, POA. Normal saline at 100 per hour. Parkinson's disease, POA. Resume home medications when able. He currently has an [place] patch on. Dementia, POA. Resume usual medications when able. Local care. Patient is DO NOT RESUSCITATE, DO NOT INTUBATE. The daughter present today was asked about previous consideration of tube feeds and it is noted that this is not been discussed previously. We will continue to have discussions pending patient's clinical course. Pain Evaluation: Adequate Pain Control Resuscitation Status: DNR/DNI:Do Not Resuscitate/Intubate Time spent 40 minutes Lucien Munguia MD Dec 18, 2016 17:54
--- NOTE | 2016-12-18 17:54 | NUR ---
1740-Pt. transported to [facility] room 2021 on 15 lpm NRB. Placed back on HHFNC 70%/50 lpm NC. Sats 99%. Decreased O2 to 60%.
--- NOTE | 2016-12-18 18:00 | NUR ---
Admit Pt transferred to unit at 1730. He was brought by gurakil by ED staff. He was transferred to the bed by slip sheet. Zuleima care was done, pt was incontinent. He has a vincent draining to gravity. On HHFNC 60%/50L NC. Sats 98%. Denies pain. Daughter is present at the bedside.
[2016-12-18] MEDS: 0.9% Sodium Chloride 1,000 ML IV SCH (18:21)
[2016-12-19] VITALS (15 sets, daily range): BP systolic 116–134; BP diastolic 63–74; PULSE 74–91; RESP 18–32; O2SAT 95–99
[2016-12-19] MEDS: Piperacillin-Tazo 3.375 Gm Inj 3.375 GM in Dextrose 5% Minibag Plus 50 ML IV SCH ×3 (01:33→18:27)
[2016-12-19] MEDS: 0.9% Sodium Chloride 1,000 ML IV SCH ×2 (01:33→18:27)
[2016-12-19 04:57] LABS: BASOPHILS % (AUTO) 0 % (0-3); MONOCYTES % (AUTO) 4 % (4-12); Mean Corpuscular Hemoglobin 31.1 pg (27.0-35.0); Mean Corpuscular Volume 94 fL (81-100); Platelet Count 357 bil/L (150-400)
[2016-12-19 04:58] LABS: EOSINOPHILS % (AUTO) 0 % (0-5); NEUTROPHILS % (AUTO) 93 % (40-74)
--- NOTE | 2016-12-19 06:32 | NUR ---
Shift note Assumed care of pt. ~1930. Pt. resting with eyes close, wakes to gentle stimuli and follows commands as requested. Duval draining to gravity. High Flow oxygen @ 50L with 60% peep, SPO2 upper 90s. Denies pain or SOB. IV antibiotics infusing. Report received from lab indicating anaerobic culture was positive for gram negative rods (2/4 bottles +), cook page placed to MD. Report given to on coming RN.
--- NOTE | 2016-12-19 10:24 | NUR ---
ADMITTING SUPERVISOR consult received. Pt is on high flow oxygen. Cough is wet and in room suction was not helpful to clear secretions. SpO2 went from 93 to 86 after cough. Recommend deep suction by RT, continued NPO status, and meds via IV. Discussed with pt, who was in agreement. ADMITTING SUPERVISOR will follow and evaluate when appropriate.
[2016-12-19] MEDS: Albuterol 1.25 mg/3 mL Inhalation Solution NEB PRN ×2 (11:28→17:26)
--- NOTE | 2016-12-19 12:18 | NUR ---
Palliative care note D/A: Palliative care referral kindly received today from Dr. Munguia for assistance with goals of care. Pt is an 86 yom who is admitted with Parkinson's, dementia, HTN, CAD and also has an indwelling urinary catheter. He currently has a diagnosis of pneumonia. ST has attempted to see but currently pt has thick secretions and ST unable to assess as of yet. Pt is admitted from [facility]. Pt dtr Iavna Mendoza is his DPOA and he has lived with Ivana and her spouse. Ivana can be reached at [phone]. Pt other dtr Dary Jain can be reached at [phone]. There is past mention of another dtr Annalise, last name unknown, phone is [phone]. P: Palliative care to follow. Michelle DUBON, CCM
--- NOTE | 2016-12-19 13:36 | PCM.PNMED ---
Subjective Date of Service Dec 19, 2016 Subjective Patient denies pain. He does have cognitive impairment and cannot really expand much. He generally commented other review of systems not reliably. No overnight events noted. He has one positive blood culture GNR, cultures from his last hospitalization for Escherichia coli which was pansensitive except to Cipro. Exam Vital Signs Vital Sign - Last Date Time Temp Pulse Resp B/P Pulse Ox O2 Delivery O2 Flow Rate FiO2 12/19/16 12:35 36.7 80 32 126/69 95 HIGH FLOW 15.00 12/19/16 11:29 60 Intake and Output 12/18/16 12/18/16 12/19/16 Cumulative From/Thru 15:00 23:00 07:00 12/18/16 13:22 - 12/19/16 05:33 Intake Total 1000 ml 1572 ml 2572 ml Output Total 1100 ml 500 ml 1600 ml Balance -100 ml 1072 ml 972 ml Intake Oral 0 ml 0 ml IV Total 1000 ml 1572 ml 2572 ml Output Urine Total 1100 ml 500 ml 1600 ml # Bowel Movements 0 0 Exam Alert and he had no distress. Slurred speech Anicteric sclera. Lungs are with increased rate and effort, scattered rhonchi. Heart is regular without murmur gallop or rub Abdomen soft nontender, flat Extremities are free of edema. Skin is free of rash or lesions. He does have several bruises. IVs and Medications Medications Reviewed: Medications were reviewed in detail Lab and Diagnostics Result Diagram: 12/19/1634412/19/16344 Assessment & Plan Aspiration pneumonia, POA. The plan will be to treat the patient was Zosyn empirically. He was given broad-spectrum antibiotics including vancomycin for the possibility of HCAP But his clinical course is more consistent with recurrent aspiration. The patient will also be hydrated. The patient is DO NOT RESUSCITATE and DO NOT INTUBATE. This was confirmed with his daughter. Urinary retention, POA and active. Duval catheter was plugged and has now been replaced. Will leave in for now. Recurrent pyelonephritis, POA and active . Probable E. coli. Empiric antibiotics as above and await culture. Dysphagia, POA and worsening. Continue NPO and speech will evaluate. Volume depletion, POA. Normal saline at 75 per hour. Parkinson's disease, POA. Resume home medications when able. He currently has an [place] patch on. Dementia, POA. Resume usual medications when able. Level of care. Patient is DO NOT RESUSCITATE, DO NOT INTUBATE. We will request a pelvic care consult to further discuss local care as well as end-of-life planning. This will include other issues such as dysphagia which is likely progressive and role of a feeding tube, if any. Resuscitation Status: DNR/DNI:Do Not Resuscitate/Intubate Lucien Munguia MD Dec 19, 2016 13:36
--- NOTE | 2016-12-19 14:15 | PCM.CONPAL ---
Date of Service Dec 19, 2016 Date of Hospital Admission: Dec 18, 2016 at 16:51 Date of Palliative Consult: Dec 19, 2016 Requesting Provider: Lucien Munguia MD Reason Palliative Care Consult: Goals of Care Discussion Hospital Unit @time of consult: Progressive Care Palliative Care Recommendation This is an 86-year-old male with a history of Parkinson's and dementia. He recently was admitted with probable aspiration pneumonia as well as urinary tract infection. The patient has a honey thick diet currently and had been doing recently well albeit with decreased by mouth intake until about yesterday. Over the last 24 hours is having productive cough complained of dyspnea becomes somewhat more confused. Palliative Care Team has been consulted to speak with family regarding goals of care. Summary of palliative recommendations: -Symptom management (Pain/other) Will advance to thickened liquids. Medical team overseeing further symptoms management Discussed initiating feeding tube feeds with Ivana RAZIA), she has stated she needs to speak with her two sisters before any decision is made, will readdress this once all three daughters can be involved in the discussion. -DPOA/Advanced Directives/POLST - Patient is DNR/DNI, will discuss POLST in future family conferences Discussed with Ivana RAZIA) on transitioning care to comfort and towards Hospice, she has stated she needs to speak with her two sisters before any decision is made; will continue this conversation once all three daughters can be involved. -Family/emotional support - Family is very willing to speak with us regarding goals of care, and very pleasant. Ivana RAZIA) [phone] [facility] [phone] [facility] [phone] -Spiritual support - Will contact hospital pipe cleaner should family wish for a pipe cleaner visit. Patient Goals: 1. Patient wants to be told the truth about his/her illness, even if it is unpleasant. 2. Patient would like to be told prognosis when it can be predicted, to better guide treatment decisions. 3. Patient would choose quality of life over quantity of life, and defines quality as [ ]. 4. Patient would request that comfort care take priority over cognitive/mental confusion. Additional Medical Diagnoses with primary management by Hospitalist team include : Antibiotics for UTI and aspiration pneumonia and ecoli septicemia Delirium Nutritional questions--if does go more to comfort-- should be allowed to eat as long as not uncomfortable-- ie thickened liquids etc. Problems: End of Life Preferences DNR/DNI. Decision re FT to be reviewed with her sisters but she does not feel it to be in his best interest Goals of Care Discussed with Ivana regarding goals of care including comfort care and the possibility of Hospice. Ivana states she needs to speak with her two sisters before further discussion and decisions can be made. Resuscitation Status Resuscitation Status: DNR/DNI:Do Not Resuscitate/Intubate POLST Updates/Changes Previous POLST?: Yes POLST Discussed with: Health Care Agent (DPOAHC) . Pain: None Symptom management: Drowsiness/sleepiness, Dyspnea, Delirium Pt History History of Present Illness This is an 86-year-old male with a history of Parkinson's and dementia. He recently was admitted with probable aspiration pneumonia as well as urinary tract infection. He is a chronic indwelling Duval catheter for 3 years for urinary retention. The patient was treated for both pneumonia and UTI and discharged to [facility] for rehabilitation stay. Patient has a history DYSPHAGIA secondary to his Parkinson's. He also has a propensity for dehydration. The patient has a honey thick diet currently and had been doing recently well albeit with decreased by mouth intake until about yesterday. Over the last 24 hours is having productive cough complained of dyspnea becomes somewhat more confused. He was evaluated in ER. There is a catheter was removed and a new one replaced with about 700 mils of urine indicating urine retention. The patient's daughter notes that she is dehydrated he tends to plug his catheter. Palliative Care Consultation requesting provider: Dr.Al Munguia [facility] with frequent hospitalizations present: patient who is able to give minimal hx but tries, daughter Ivana who is DPOAHC, Dr. Germain R1 and [facility] 86-year-old gentleman with history of urinary retention requiring Duval catheter. History is taken almost exclusively from his daughter in conjunction with review of his chart. His daughter states that he has UTIs approximately every month and they are associated with altered mental status more gait instability. They have home health nurse who comes by her house and changes his catheter every 3 weeks. His usual baseline is walking with a walker eats soft pured diet but able to drink 16 ounces glasses of water 3 of them over the day. He is able to feed himself and get himself to the bathroom most of the time. He sleeps a lot daytime also sleeps well at night. He has been cared for by his daughter and her over the past year. They moved into her parents house to care for both of them aging and medical issues. Her mother in July with the assistance of hospice. Ivana does not think this made much of additional friends for her father and that he tends to forget that his is gone. He does have moderate dementia. 4 weeks ago he had UTI and pneumonia was hospitalized and she was hoping he would improve with rehabilitation so agreed to time at [facility] [place]. He initially improved for about the first week then started to decline again taking in only 400 mL of fluid in the day and becoming weaker. This prompted his recent admission again with diagnosis of pneumonia and UTI as well as probably plugged Duval catheter. He has continued to lose weight with a 10 pound decline now at 158 over the past 6 weeks. He seems to have no complaints of pain. He does have chronic constipation and known Parkinson's. He has not had any of his Parkinson's medication since admission. She states at baseline he is very stiff He was born in [place] and they moved around the country until settling here where she became a salesman for [employer] He has a family history of Parkinson's in his brother She has 2 sisters but she is designated DURABLE POWER OF BUILDING CONSULTANT for healthcare and is the youngest. Past Medical History Significant PMH Noted: PMH Parkinson's disease History of aspiration pneumonia BPH Gout Coronary artery disease, Hypertension Atrial fibrillation, Dementia, Depression Surgical History Skin graft Cataract surgery Tonsillectomy Family History Brother with Parkinson's disease Social History Hx Alcohol Use: Yes (occasional, not current) Hx Substance Use: No Hx Tobacco Use: No Smoking Status: Former Smoker Social History Occupation: see above Social Support: Ivana has been main support having lived with her mother and father in their last 18 months with her mother dying at home with hospice assist in Jul of this year She is still grieving. Also assist from her 2 sisters Living Situation: ECF most recently Spiritual Support Spiritual Support Advent and supported by zoroastrianism Responsive Patient Symptoms Pain (current): None Tiredness/Fatigue: Moderate Depression: None Shortness of Breath: Moderate Delirium does have some somnolence and fatigue with developing UTIs Palliative Performance Scale PPS Patient Status: Baseline PPS Ambulation: Reduced PPS Self-Care: Considerable assistance required PPS Intake: Normal or reduced PPS Conscious Level: Full or confusion Performance Scale: 40% ADLs ADL Patient Status: Baseline ADL Ambulation: Reduced ADL Dressing: Considerable assistance required ADL Feeding: Considerable assistance required ADL Hygene/bathing: Considerable assistance required ADL Transfers: Considerable assistance required Allergy Allergies Reviewed: Yes Medications Current Medications: Current Medications Al Hydrox/Mg Hydrox/Simethicone 30 ml Q6 PRN PO; Start 12/18/16 at 14:40; Stop 12/18/16 at 16:26; Status DC Ondansetron HCl Dose range: 4 mg to 8 mg Q4H PRN IVPUSH; Start 12/18/16 at 14: 40; Stop 12/18/16 at 16:26; Status DC Acetaminophen 975 mg 975 mg Q6H PRN PO; Start 12/18/16 at 14:40; Stop 12/18/16 at 16:26; Status DC Piperacillin Sod/ Tazobactam Sod 3.375 gm/Dextrose/ Water 50 ml @ 12.5 mls/hr Q8 IV Last administered on 12/19/16 10:20; Admin Dose 12.5 MLS/HR; Start at 00:30 Sodium Chloride 1,000 ml @ 75 mls/hr [id number] IV Last administered on 12/18/16 18:21; Admin Dose 100 MLS/HR; Start 12/18/16 at 16:07 Al Hydrox/Mg Hydrox/Simethicone 30 ml Q6H PRN PO; Start 12/18/16 at 16:10 Senna 17.2 mg BID PRN PO; Start 12/18/16 at 16:10 Polyethylene Glycol 17 gm DAILY PRN PO; Start 12/18/16 at 16:10 Albuterol 1.25 mg Q4H PRN NEB Last administered on 12/19/16 11:28; Admin Dose 1.25 MG; Start 12/19/16 at 10:30 Senna 8.6 mg HS PO; Start 12/19/16 at 21:00 Scheduled Carbidopa/Levodopa 25-100 mg (Carbidopa/Levodopa 25-100 mg) 1 Each Tablet 1 TABLET PO BID in AM and 1400 Carbidopa/Levodopa 25-100 mg (Carbidopa/Levodopa 25-100 mg) 1 Each Tablet 2 TABLET PO daily at 1800 Entacapone (Entacapone) 200 Mg Tablet 200 MG PO BID AM and 1400 Ipratropium/Albuterol Sulfate (Iprat-Albut 0.5-3(2.5) mg/3 mL Inhalant Soln) 3 Ml Ampul.neb 3 ML NEB Q6 Morphine Sulfate Oral Concentrate (Roxanol Oral Concentrate) 100 Mg/5 Ml (20 Mg/ Ml) Solution 4 MG SL/PO [facility] Quetiapine Fumarate (Seroquel) 25 Mg Tablet 75 MG PO HS Sennosides (Senna) 8.6 Mg Tablet 25.8 MG PO QAM Scheduled PRN Acetaminophen (Acetaminophen) 325 Mg Tablet 1-2 EACH PO Q4H PRN PRN For Pain Oxybutynin Chloride ER (Oxybutynin Chloride ER) 5 Mg Tab.er.24 5 MG PO DAILY PRN PRN BLADDER SPASM Objective Findings Exam Vital Sign - Last Date Time Temp Pulse Resp B/P Pulse Ox O2 Delivery O2 Flow Rate FiO2 12/19/16 12:35 36.7 80 32 126/69 95 HIGH FLOW 15.00 12/19/16 11:29 60 Intake and Output 12/18/16 12/18/16 12/19/16 Cumulative From/Thru 15:00 23:00 07:00 12/18/16 13:22 - 12/19/16 05:33 Intake Total 1000 ml 1572 ml 2572 ml Output Total 1100 ml 500 ml 1600 ml Balance -100 ml 1072 ml 972 ml Intake Oral 0 ml 0 ml IV Total 1000 ml 1572 ml 2572 ml Output Urine Total 1100 ml 500 ml 1600 ml # Bowel Movements 0 0 General: Minimally responsive (but later in day responds to his daughter appropriately, definitely hard of hearing), No acute distress HEENT: Atraumatic, Mucous Membranes Dry Heart: Regular Rate/Rhythm Lungs: Rhonchorus, Tachypneic Abdomen: Soft, Non Tender Neuro: Arousable, Spontaneous Eye Opening Extremities: Warm, No Edema Skin: Pressure Area (pink pressure spots on Lower back and buttocks, no skin breakdown or ulcers), Other (Warm, dry) Lab/Diagnostics Lab and Imaging results reviewed in detail in EMR. Patient/Family Conference Members Present Family Members Present Daughter: Ivana - [phone] Medical Team Members Present? Dr. Dr. Damaso Rodriguez Discussion/Goals of Care Discussion FAMILY UNDERSTANDING OF DISEASE: Contact today with Ivana who is tearful but well versed in severity of illness. She recognizes his deterioration in past 6 months and expects him to very soon--possibly from this illness but she feels she needs to confer with her sisters before finalizing issues such as feeding tube. She does not feel FT would be in his best interest but needs to confer. DISEASE PROGRESSION/EVIDENCE OF DECLINE: Progressive over last 6 months most steep decline. QOL is minimal but he is happy in his dementia. She does not feel this is QOL to be maintained. SYMPTOM BURDEN: Recurrent infection then with SOB and repeat hospitalization and not being able to have independence due to dementia and PK GOALS: Comfort at this stage but exactly what that means needs further discussion with her sisters. Ivana is DPOAHC and is very comfortable with the idea of hospice involvement HOPES/WORRIES: Ivana feels he would not want to be sustained at this level. She appreciates david discussion re prognosis etc. Palliative Care counselled: Time spent Total time 65 minutes; >50% face to face with patient and/or family, providing counselling regarding plans and recommendations, and in care coordination with his/her medical teams. majority of time spent reviewing chart, discussing case with Dr. Petit and team and discussion with Ivana- DPOAHC. Patient is involved in conversation later in day but is not capable of critical thinking--he is able to make needs known--requesting water etc. I also spent an additional [ ] minutes counseling for advanced care planning with the patient/the patients family/the surrogate decision maker. Attending Statement Patient was seen and examined with Dr. Petit in AM and case reviewed. Discussion with daughter in afternoon done solo and documentation in note reflects this discussion. I otherwise agree with Dr. Petit documentation and assessment. copies to: Lucien Munguia MD, Anthony P DO Dec 19, 2016 14:15 Valentine Braxton MD Dec 19, 2016 18:08
--- NOTE | 2016-12-19 18:50 | NUR ---
High Flow/Cough Cardiac: Pt denies CP, Tele: afib 80s with IVCD. Resp: Pt denies he is having any SOB despite elevated RR. SPO2 95-99% on High Flow 60%/50L , Encouraged to cough frequently, congested airway audible at bedside. GI/: denies n/v/d Neuro: A&Ox2, self and year. pt able to make needs known.
[2016-12-20] VITALS (10 sets, daily range): BP systolic 120–164; BP diastolic 67–81; PULSE 79–88; RESP 16–40; O2SAT 90–97
[2016-12-20] MEDS: Piperacillin-Tazo 3.375 Gm Inj 3.375 GM in Dextrose 5% Minibag Plus 50 ML IV SCH ×3 (00:29→17:23)
[2016-12-20 03:40] LABS: Mean Corpuscular Hemoglobin 30.6 pg (27.0-35.0); Mean Corpuscular Volume 93.8 fL (81-100)
--- NOTE | 2016-12-20 05:56 | NUR ---
Mentation Pt AOx2-3, able to identify state, but could not remember current city. Pt is able to answer questions appropriately, follow commands, verbalize needs, and carry on conversation. Pt slightly forgetful/confused to current situation, but reorientable. Q2H turns in place, VSS, tele afib 70s. Suctioning utilized PRN for oral secretions, pt able to demonstrate mildly effective coughing. Able to rest between interventions.
[2016-12-20] MEDS: 0.9% Sodium Chloride 1,000 ML IV SCH ×2 (08:09→19:39)
--- NOTE | 2016-12-20 10:12 | PCM.PALLBR ---
Palliative Care Recommendation This is an 86-year-old male with a history of Parkinson's and dementia. He recently was admitted with probable aspiration pneumonia as well as urinary tract infection. The patient has a honey thick diet currently and had been doing recently well albeit with decreased by mouth intake until about yesterday. Over the last 24 hours is having productive cough complained of dyspnea becomes somewhat more confused. Palliative Care Team has been consulted to speak with family regarding goals of care. Summary of palliative recommendations: -Symptom management (Pain/other) Continue thickened liquids. Medical team overseeing further symptoms management Plan for family meeting once POKia has spoken with family -DPOA/Advanced Directives/POLST - Patient is DNR/DNI, will discuss POLST in future family conferences Plan for family meeting once PLACIDO has spoken with family -Family/emotional support - Family is very willing to speak with us regarding goals of care, and very pleasant. Ivana (PLACIDO) [phone] [facility] [phone] [facility] [phone] -Spiritual support - Will contact hospital it corporate recruiter should family wish for a it corporate recruiter visit. Discussion with daughter Ivana-DPOAHC. Discussion with her sisters and all in agreement: no feeding tube-"invasive and not to his benefit" Agree with present treatment but at discharge goal for less aggressive intervention with aim for comfort. Goal is to discharge when medically stable to [facility] with hospice back up. With this in mind- to allow thickened liquids knowing risk of aspiration. Ivana understands this would be to treat sx at [facility] ie to consider antibiotics orally if he again appears to get infection but not to hospitalize etc. Hospice will review with daughter again. Hospice notified of request and they will contact Ivana. Dr. Kia Munguia notified of above discussion. For now remains DNR with limited interventions including IVs and antibiotics but on discharge will change to DNR/comfort measures. Will need POLST completed around discharge. Patient agrees with all this but is really not able to understand options. He does confirm Ivana as his spokesperson. WILL NEED TO DETERMINE NEW PCP SINCE Isis GAMBOA IS NOT HERE ANYMORE. Problems: End of Life Preferences DNR/DNI Goals of Care Discussed with Ivana regarding goals of care including comfort care and the possibility of Hospice. Ivana states she needs to speak with her two sisters before further discussion and decisions can be made. Disposition Hoping for discharge next week to [facility] with hospice --when medically stable Resuscitation Status Resuscitation Status: DNR/DNI:Do Not Resuscitate/Intubate POLST Updates/Changes Artificially Admin Nutrition: No Artifical Nutrition by Tube POLST Discussed with: Health Care Agent (DPOAHC) . Advanced Care Planning Address: Code status change, Comfort care Pain: None Symptom management: Dyspnea (pt has sx but is minimally bothered by them), Delirium Total time 45 minutes; >50% face to face with patient and/or family, providing counselling regarding plans and recommendations, and in care coordination with his/her medical teams. majority of time spent with discussion with his daughter and coordination of care with hospice, CM, hospitalist team I also spent an additional [ ] minutes counseling for advanced care planning with the patient/the patients family/the surrogate decision maker. Attending Statement Patient seen and interviewed with Dr. Petit and I concur with assessment and plan. Separate communication with patient's daughter Ivana by phone- My documentation is in italics. copies to: Tiburcio Bridges DO; Anika Rockwell MD Palliative Brief Note Date of Service Dec 20, 2016 . This is an 86-year-old male with a history of Parkinson's and dementia. He recently was admitted with probable aspiration pneumonia as well as urinary tract infection. The patient has a honey thick diet currently and had been doing recently well albeit with decreased by mouth intake until about yesterday. Over the last 24 hours is having productive cough complained of dyspnea becomes somewhat more confused. Palliative Care Team has been consulted to speak with family regarding goals of care. Patient resting in bed comfortably. Patient is aware he is in the [facility], but not oriented to being in the hospital or the situation to why he is in the hospital. Palliative team spoke with Ivana (PLACIDO) yesterday about goals of care in regards to decision for comfort care and transition to Hospice. Further family meetings planned for today once Ivana speaks with her two sisters. Brief Physical Exam: Cardio: Regular rate and rhythm-no murmur Lungs: Diffuse rhonchi, tachypnea neuro- alert, asking for water, OX1-to person only. Has no idea how he got here or why. No recall of recent events. agrees with being treated for his infection but no insight into alternatives labs- CBC stable with WBC 14K, BMP-Na 145, normal Cr. Chad Petit DO Dec 20, 2016 10:12 Valentine Braxton MD Dec 20, 2016 12:37
--- NOTE | 2016-12-20 10:36 | NUR ---
Evaluation completed. Please go to "Notes" then click on "Assessments and Notes" (bottom left corner of screen). Then select appropriate discipline tab on top of screen.
--- NOTE | 2016-12-20 10:51 | NUR ---
Palliative care note D/A: Case discussed in dc planning rounds. Medical team wonders about potential hospice referral. Dr. Braxton notes that she needs to discuss idea of hospice with family and find out if they would like to proceed. She will alert this worker if family would like to meet with hospice. Dr. Braxton has written an order for hospice consult but this worker will await further word from her. Phone call to christa Guthrie to alert to above. P: Palliative care to follow. Michelle DUBON [facility] Addendum: 12/20/16 at 1255 by DAMARIS CAMPBELL Palliative care note amendment D/A: Dr. Braxton spoke to pt dtr this am. Dtr indicates that she wishes for pt to go to [facility]. [facility] has indicated that in order for pt to be admitted, will need hospice services. Dtr. indicated to Dr. Braxton that she wishes for [facility] which is the hospice agency that family just finished working with regarding eol and their mother, who earlier this year. Dr. Braxton called to Tessie to inform. Tessie has informed this worker of above. Have asked Tessie to inform this worker of the time of the [facility] info visit. Will inform christa Guthrie. P: Palliative care to follow. Michelle DUBON [facility]
--- NOTE | 2016-12-20 13:47 | NUR ---
Social Work: Attempted Assessment/Multidisciplinary Rounds D: Pt discussed in am rounds. Palliative care is consulting to define goals of care. Per Dr. Braxton with Palliative care, the patient's daughter does not want the patient to return to [facility]. They have been in touch with the admissions workers at [facility] who state that they could accept the patient with hospice care. ELECTRIC [employer]OR MECHANIC is attempting to clarify whom the patien't daughter spoke with as pt's skillable need for SNF is not yet defined. If the patient requires the level of care for SNF but does not have a skilled need or meet medicare requirement, the patient would be responsible for this out of pocket expense. Palliative care is contacting [facility] to make referral for hospice. ELECTRIC MOTOR MECHANIC has attempted to contact the patient's to clarify whether she had spoke with [facility] or the Assisted Living. ELECTRIC MOTOR MECHANIC requested return phone call to discuss this plan. t/c to the litigation coordinator at [facility]; ELECTRIC MOTOR MECHANIC left message requesting return phone call. A: Pt who has demenita and likely transitioning to comfort care, per palliative MD P: Evolving; ELECT[employer]OR [employer]CH[employer]IC to continue to attempt contact with pt's daughter to complete a discharge plan and assess for d/c needs. NAVIN Bates
--- NOTE | 2016-12-20 14:02 | PCM.PNMED ---
Subjective Date of Service Dec 20, 2016 Subjective Patient is denying pain and states his cough and breathing are better today. He does not know where he is reminded he is scheduled hospital. He denies any chest pain or abdominal pain. This is chronic indwelling Duval. No overnight events. Exam Vital Signs Vital Sign - Last Date Time Temp Pulse Resp B/P Pulse Ox O2 Delivery O2 Flow Rate FiO2 12/20/16 12:49 60 12/20/16 12:46 84 Nasal Cannula 50 12/20/16 12:19 37.5 20 164/81 94 Intake and Output 12/19/16 12/19/16 12/20/16 Cumulative From/Thru 15:00 23:00 07:00 12/18/16 13:22 - 12/20/16 05:51 Intake Total 1100 ml 997 ml 4669 ml Output Total 400 ml 250 ml 2250 ml Balance 700 ml 747 ml 2419 ml Intake Oral 0 ml 0 ml 0 ml IV Total 1100 ml 997 ml 4669 ml Output Urine Total 400 ml 250 ml 2250 ml # Bowel Movements 1 0 1 Exam Alert and oriented to person, no distress.. Chronic slurred speech Anicteric sclera. Lungs are much more clear with normal rate and effort Heart is regular without murmur gallop or rub Abdomen soft nontender, flat Extremities are free of edema. Skin is free of rash or lesions. Indwelling Duval IVs and Medications Medications Reviewed: Medications were reviewed in detail Lab and Diagnostics Result Diagram: 12/20/16 0320 12/20/16 0320 Assessment & Plan Aspiration pneumonia, POA and improving.. We will continue Zosyn at this point. Culture data is negative. Acute respiratory failure with hypoxia, POA and improved. Plan a supplemental oxygen as needed. Urinary retention, POA and active. Duval catheter was plugged and has now been replaced. 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 Recurrent pyelonephritis associated with indwelling catheter, POA and active . Probable E. coli. Empiric antibiotics as above and await culture. Dysphagia, POA and worsening. The patient did meet with Dr. Braxton for palliative care. They are indicated they will likely pursue comfort oriented end-of-life care. This will evolve next 1 or 2 days. There is request for thickened liquids for comfort we will also give medications orally with applesauce. Volume depletion, POA. Improved. Normal saline at 75 per hour. Parkinson's disease, POA and stable. Resume home medications when able. He currently has an [place] patch on. Dementia, POA and stable. Resume usual medications when able. Level of care. Patient is DO NOT RESUSCITATE, DO NOT INTUBATE. The patient has been seen by palliative care will likely transition to comfort oriented end-of-life care in the next 1 or 2 days. In the meantime will continue antibiotics to treat his active infections. Anticipated discharge to [facility] likely on Friday with hospice if able to initiated. VTE Mechanical Devices: Intermittant Pneumatic CD Resuscitation Status: DNR/DNI:Do Not Resuscitate/Intubate Lucien Munguia MD Dec 20, 2016 14:02
[2016-12-20] MEDS ORDERED: Albuterol-Ipratropium 3 mL Inhalation Solution NEB SCH (14:30)
--- NOTE | 2016-12-20 14:56 | NUR ---
Palliative care note D/A: Phone call from Tessie at [facility]. NAVIN Krishnamurthy from [facility] will call pt dtr for phone informational visit on 12/21/16 between 2-3. She wants pt to go to [place] and Yessy will discuss options with her. Family hoping for little to no out of pocket expenses. Phone call to christa Guthrie and she is aware of above. P: Palliative care to follow. Michelle DUBON, CCM
[2016-12-20] MEDS: Entacapone 200 mg Tablet PO SCH ×2 (17:31→19:40)
--- NOTE | 2016-12-20 19:42 | NUR ---
Swallow/LOC Cardiac: pt denies CP, Tele afib 70-80s with IVCD, Tele Dc'd this AM. Resp: Pt denies feeling SOB despite RR of 20s-30s. SPO2 97% on High flow 50L 60% GI/: pt denies n/v, Po meds ordered after family discussion with palliative care regarding goals of care. Pt able to take PO meds in sauce preceded by and followed with pudding thick water. Each swallow is swallow, cough, swallow. Pt still wound up coughing up apple sauce sputum five minutes following meds. pt has urge to defecate frequently, but is unable once on bedpan. incontinent of stool once this shift. vincent draining to gravity. Daughter called and reenforced desire that her father be able to drink thickened water for comfort. Neuro: AOx2 self and year. AGUILAR, follows commands, answers questions, and verbalizes needs. Confused/forgetful to situation, more alert than yesterday AM.
--- NOTE | 2016-12-20 23:17 | NUR ---
MENTATION Pt very drowsy this evening, slept through assessment. Opened eyes slightly with Q2 turns, but immediately went back to sleep. VSS, no pain, no other issues noted @ this time.
[2016-12-21] MEDS: Piperacillin-Tazo 3.375 Gm Inj 3.375 GM in Dextrose 5% Minibag Plus 50 ML IV SCH ×3 (00:46→16:20)
[2016-12-21 04:07] VITALS: BP 129/67; PULSE 86; O2SAT 97
[2016-12-21] MEDS: 0.9% Sodium Chloride 1,000 ML IV SCH (04:17)
[2016-12-21] MEDS: Entacapone 200 mg Tablet PO SCH ×4 (06:08→19:54)
[2016-12-21 07:22] VITALS: BP 134/60; PULSE 86; RESP 28; O2SAT 95
[2016-12-21 07:56] VITALS: RESP 24; O2SAT 94
[2016-12-21] MEDS: Multivit-Miner-Folic Acid-Iron Tablet PO SCH (08:30)
[2016-12-21] MEDS: MeTOProlol XL 25 mg ER24 Tablet PO SCH (08:30)
--- NOTE | 2016-12-21 08:42 | PCM.PNMED ---
Subjective Date of Service Dec 21, 2016 Subjective Patient is comfortable. Doing well. No problems overnight. His breathing continues to improve. Conversations with Dr. Braxton yesterday and the family clarified resuscitation wishes and indicate a possible palliative approach to his future care. Goals are for discharge [place] early in the week probably with hospice support. In the meantime continue IV fluids and antibiotics. Exam Vital Signs Vital Sign - Last Date Time Temp Pulse Resp B/P Pulse Ox O2 Delivery O2 Flow Rate FiO2 12/21/16 07:56 87 24 94 Nasal Cannula 30 40 12/21/16 07:22 36.8 134/60 Intake and Output 12/20/16 12/20/16 12/21/16 Cumulative From/Thru 15:00 23:00 07:00 12/18/16 13:22 - 12/21/16 04:31 Intake Total 956 ml 978 ml 6603 ml Output Total 675 ml 550 ml 3475 ml Balance 281 ml 428 ml 3128 ml Intake Oral 100 ml 50 ml 150 ml IV Total 856 ml 928 ml 6453 ml Output Urine Total 675 ml 550 ml 3475 ml # Bowel Movements 1 2 Exam Alert , no distress. Chronic slurred speech Anicteric sclera. Lungs are clear with normal effort and a slight increased rate Heart is regular without murmur gallop or rub Abdomen soft nontender, flat Extremities are free of edema. Skin is free of rash or lesions. Chronic indwelling Duval IVs and Medications Medications Reviewed: Medications were reviewed in detail Lab and Diagnostics Result Diagram: 12/20/16 0320 12/20/16 0320 Assessment & Plan Aspiration pneumonia, POA and improving.. We will continue Zosyn at this point. Sputum culture data and blood cultures are negative. Acute respiratory failure with hypoxia, POA and improving. Patient remains on high flow oxygen we will continue to attempt to weanthis as able.. Urinary retention, POA and active. Duval catheter was plugged and has now been replaced. 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 Recurrent pyelonephritis associated with indwelling catheter, POA and active . Escherichia coli which is sensitive to ceftriaxone and Zosyn. We will continue Zosyn as we are also treating aspiration pneumonia. Dysphagia, POA and worsening. The patient did meet with Dr. Braxton for palliative care. They are indicated they will likely pursue comfort oriented end-of-life care. This will evolve next 1 or 2 days. There is request for thickened liquids for comfort we will also give medications orally with applesauce. Volume depletion, POA. Improved. Normal saline at 75 per hour. Parkinson's disease, POA and stable. Resume home medications when able. He currently has an [place] patch on. Dementia, POA and stable. Resume usual medications when able. Level of care. Patient is DO NOT RESUSCITATE, DO NOT INTUBATE. The patient has been seen by palliative care will likely transition to comfort oriented end-of-life care in the next 1 or 2 days. In the meantime will continue antibiotics to treat his active infections. Anticipated discharge to [facility] likely on Friday with hospice if able to initiated. VTE Mechanical Devices: Intermittant Pneumatic CD Resuscitation Status: DNR/DNI:Do Not Resuscitate/Intubate Lucien Munguia MD Dec 21, 2016 08:42
[2016-12-21] MEDS: Dextrose 5% 1,000 ML IV SCH (10:06)
--- NOTE | 2016-12-21 14:38 | NUR ---
Received verbal order from Dr. Munguia for speech therapy to sign off. The plan is currently for the pt to transition to comfort care in the 1-[address] if appropriate.
[2016-12-21 16:31] VITALS: BP 146/73; PULSE 68; RESP 24; O2SAT 94
--- NOTE | 2016-12-21 18:52 | NUR ---
SPO2/High Flow/Aspiration Cardiac: Tele d/c'd, pt denies chest pain Resp: Pt denies SOB despite RR 28-32. SPO2 95-96% on High flow 50L 50% following coughing. On AM assessment pt was sleeping and desatting to 84%, coarse breathing sounds audible from bedside. Pt was roused and encouraged to cough, pt was suctioned following cough and apple sauce from last night's med administration was evident in the expectorate. Meds will be held till further discussion with physician. Thick H2O still given for comfort when pt thirsty. This afternoon, pt desatting down to low 70s, pt unable to cough despite attempts, RT called, pt deep suctioned a few times, SPO2 back up. Pt changed over to oxymask due to mouth breathing. SPO2 97% on 6L NC. Frequent oral care done. GI/: pt denies n/v, vincent draining to gravity. Neuro: A&Ox1, Pt less alert this AM. Q2 turns
[2016-12-21 19:48] VITALS: BP 145/68; PULSE 73; RESP 20; O2SAT 96
[2016-12-21 20:19] VITALS: O2SAT 96
[2016-12-22] MEDS: Piperacillin-Tazo 3.375 Gm Inj 3.375 GM in Dextrose 5% Minibag Plus 50 ML IV SCH ×4 (00:03→15:30)
[2016-12-22] MEDS: Entacapone 200 mg Tablet PO SCH ×4 (00:04→21:30)
[2016-12-22 00:42] VITALS: BP 151/75; PULSE 83; RESP 22; O2SAT 97
[2016-12-22] MEDS: Dextrose 5% 1,000 ML IV SCH (04:42)
--- NOTE | 2016-12-22 06:19 | NUR ---
resp: pt. maintained sats 96-99% on 6L oxymask. pt. has audible crackles in lungs, nonproductive cough, pt. has been nonverbal, some mumbling with eyes closed, unable to take po intake.
[2016-12-22 06:33] VITALS: BP 149/71; PULSE 84; RESP 24; O2SAT 98
--- NOTE | 2016-12-22 08:09 | PCM.PNMED ---
Subjective Date of Service Dec 22, 2016 Subjective Patient is comfortable, he is not really speaking today. His breathing relatively comfortably with slight increased rate. He is still on 100% oxygen at 40 L. No overnight events noted. Exam Vital Signs Vital Sign - Last Date Time Temp Pulse Resp B/P Pulse Ox O2 Delivery O2 Flow Rate FiO2 12/22/16 06:33 36.9 84 24 149/71 98 OxyMask 6.00 12/21/16 16:31 40 Intake and Output 12/21/16 12/21/16 12/22/16 Cumulative From/Thru 15:00 23:00 07:00 12/18/16 13:22 - 12/22/16 06:50 Intake Total 620 ml 785 ml 8008 ml Output Total 725 ml 450 ml 4650 ml Balance -105 ml 335 ml 3358 ml Intake Oral 0 ml 150 ml IV Total 620 ml 785 ml 7858 ml Output Urine Total 725 ml 450 ml 4650 ml # Bowel Movements 0 2 Exam Somnolent and minimally arousable. No distress. Oxygen mask is on high flow oxygen Anicteric sclera. Lungs are clear with normal rate and effort Heart is regular without murmur gallop or rub Abdomen soft nontender, flat Extremities are free of edema. Skin is free of rash or lesions. Duval catheter in place IVs and Medications Medications Reviewed: Medications were reviewed in detail Lab and Diagnostics Result Diagram: 12/20/16 0320 12/20/16 0320 Assessment & Plan Aspiration pneumonia, POA and improving.. We will continue Zosyn at this point. Sputum culture data and blood cultures are negative. Acute respiratory failure with hypoxia, POA and slowly improving. Patient remains on high flow oxygen, 100% on 4 L, we will continue to attempt to weanthis as able. Hypernatremia, new. The patient started on D5W yesterday we will repeat evaluate this with a BMP today. Urinary retention, POA and active. Duval catheter was plugged and has now been replaced. 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 Recurrent pyelonephritis associated with indwelling catheter, POA and active . Escherichia coli which is sensitive to ceftriaxone and Zosyn. We will continue Zosyn as we are also treating aspiration pneumonia. Dysphagia, POA and worsening. The patient did meet with Dr. Braxton for palliative care. They are indicated they will likely pursue comfort oriented end-of-life care. This will evolve next 1 or 2 days. There is request for thickened liquids for comfort we will also give medications orally with applesauce. Volume depletion, POA. Improved. Normal saline at 75 per hour. Parkinson's disease, POA and stable. Resume home medications when able. He currently has an [place] patch on. Dementia, POA and stable. Resume usual medications when able. Level of care. Patient is DO NOT RESUSCITATE, DO NOT INTUBATE. The patient has been seen by palliative care will likely transition to comfort oriented end-of-life care in the next 1 or 2 days. In the meantime will continue antibiotics to treat his active infections. Anticipated discharge to [facility] likely on Friday with hospice if able to initiated. There is really no change in his discharge plan at this point in time. VTE Mechanical Devices: Intermittant Pneumatic CD Resuscitation Status: DNR/DNI:Do Not Resuscitate/Intubate Lucien Munguia MD Dec 22, 2016 08:09
[2016-12-22] MEDS: MeTOProlol XL 25 mg ER24 Tablet PO SCH (08:30)
[2016-12-22] MEDS: Multivit-Miner-Folic Acid-Iron Tablet PO SCH (08:30)
[2016-12-22 09:58] VITALS: O2SAT 95
[2016-12-22] MEDS ORDERED: Sodium Chloride NAS 45 mL Spray NASAL PRN (16:20)
[2016-12-22] MEDS ORDERED: Artificial Tears 15 mL Ophthalmic Solution BOTH_EYES PRN (16:20)
--- NOTE | 2016-12-22 16:52 | NUR ---
Social Work- Multidisciplinary Rounds Pt discussed in rounds. Pt was still on 100% 40L O2. Family meeting will happen tomorrow regarding discharge plan if pt is unable to reduce is O2 needs. Pt's family has signed hospice consents but [facility] is not able to manage such high O2 needs. Pt family will have private pay room and board at [facility]. SW unable to see pt today due to high census. SW will continue to follow and arrange hospice/facility transfer. Amanda Mccoy MSW
--- NOTE | 2016-12-22 17:18 | PCM.ADCARE ---
Advance Care Planning Note Purpose of Encounter: To reassess level of care and end-of-life expectations. Parties in Attendance: One daughter, Dary in person, one on telephone, Ivana. Decisional Capacity: The patient is not decisional and did not participate Subjective: The patient is not able to communicate today. He is somnolent. Objective: He is comfortable in appearance. He continues to need an oxygen mask to maintain saturations 92%. He has increased respiratory rate and effort. Goals of Care Determinations: DO NOT RESUSCITATE DO NOT INTUBATE Continue IV antibiotics and IV fluids for now. Initiate hospice if patient survives over the next 24-48 hours. Expect a possible expiration over the next 12-24 hours in the hospital. Plan: Plan is as above continue IV antibiotics and IV fluids CODE STATUS: DO NOT RESUSCITATE Time Spent Adv.Care Plannin minutes Adv. Care Plan Documenation: As documented Lucien Munguia MD Dec 22, 2016 17:18
[2016-12-22 20:45] VITALS: BP 145/76; PULSE 83; O2SAT 96
[2016-12-23 00:23] VITALS: PULSE 85; O2SAT 95
[2016-12-23] MEDS: Piperacillin-Tazo 3.375 Gm Inj 3.375 GM in Dextrose 5% Minibag Plus 50 ML IV SCH ×2 (00:28→08:30)
[2016-12-23] MEDS: Dextrose 5% 1,000 ML IV SCH (00:28)
[2016-12-23 03:35] VITALS: BP 149/80; PULSE 71; RESP 24; O2SAT 98
[2016-12-23 04:00] VITALS: PULSE 80; RESP 30; O2SAT 98
--- NOTE | 2016-12-23 06:00 | NUR ---
Shift Note 7p-7a Pt desat on O2 @ 6L Oxymask to 87-89%, O2 titrated up to 8-10L and O2 sats improved to 95-98% per continuous pulse oximetry. Pt mostly unresponsive for most of the night. Around 0400 Pt woke up, eyes open and mumbling, was able to communicate that he wanted the blankets removed. Pt suctioned and mouth care given, then Pt fell back to sleep. Pt turned for comfort. Daughter in room all night. IV D5 and IV antibiotics infused per MD orders.
[2016-12-23] MEDS: Entacapone 200 mg Tablet PO SCH (06:30)
[2016-12-23] MEDS: Multivit-Miner-Folic Acid-Iron Tablet PO SCH (07:46)
[2016-12-23] MEDS: MeTOProlol XL 25 mg ER24 Tablet PO SCH (07:46)
--- NOTE | 2016-12-23 10:33 | PCM.PALLBR ---
Palliative Care Recommendation This is an 86-year-old male with a history of Parkinson's and dementia. He recently was admitted with probable aspiration pneumonia as well as urinary tract infection. The patient has a honey thick diet currently and had been doing recently well albeit with decreased by mouth intake until about yesterday. Over the last 24 hours is having productive cough complained of dyspnea becomes somewhat more confused. Palliative Care Team has been consulted to speak with family regarding goals of care. Summary of palliative recommendations: 12/23/16-EOL/GOC- request by family for comfort care only. Antibiotics discontinued and IV fluids reduced to minimum. Reviewed with Annalise in AM and Annalise and Dary in pm. With improved status reviewed with Ivana by phone re probable direction again toward hospice and [facility] [place]. CM informed. They will contact Ivana Comfort path ordered. D/C continuous sats and treat with O2 for comfort. GOC for comfort care But at this time is not actively dying. I would estimate he may have days or weeks to go depending on his PO intake. Grieving- 3 daughters with significant grief due to loss of mother in jul and now expected soon demise of father. Seem to have good support between them. Ivana has used hospice crisis intervention counselor on this. -Symptom management (Pain/other) Continue thickened liquids. Medical team overseeing further symptoms management Plan for family meeting once PLACIDO has spoken with family -DPOA/Advanced Directives/POLST - Patient is DNR/DNI, will discuss POLST in future family conferences Plan for family meeting once PLACIDO has spoken with family -Family/emotional support - Family is very willing to speak with us regarding goals of care, and very pleasant. Ivana (PLACIDO) [phone] [facility] - [phone] Annalise - [phone] -Spiritual support - Will contact hospital operations officer trust department should family wish for a operations officer trust department visit. Discussion with daughter Ivana-DPOAHC. Discussion with her sisters and all in agreement: no feeding tube-"invasive and not to his benefit" Agree with present treatment but at discharge goal for less aggressive intervention with aim for comfort. Goal is to discharge when medically stable to [facility] with hospice back up. With this in mind- to allow thickened liquids knowing risk of aspiration. Ivana understands this would be to treat sx at [facility] [place] ie to consider antibiotics orally if he again appears to get infection but not to hospitalize etc. Hospice will review with daughter again. Hospice notified of request and they will contact Ivana. Dr. Kia Munguia notified of above discussion. For now remains DNR with limited interventions including IVs and antibiotics but on discharge will change to DNR/comfort measures. Will need POLST completed around discharge. Patient agrees with all this but is really not able to understand options. He does confirm Ivana as his spokesperson. WILL NEED TO DETERMINE NEW PCP SINCE Isis GAMBOA IS NOT HERE ANYMORE. Problems: End of Life Preferences DNR/DNI Goals of Care Discussed with Ivana regarding goals of care including comfort care and the possibility of Hospice. Ivana states she needs to speak with her two sisters before further discussion and decisions can be made. Disposition Hoping for discharge next week to [facility] [place] with hospice --when medically stable Resuscitation Status Resuscitation Status: DNR/DNI:Do Not Resuscitate/Intubate POLST Updates/Changes Artificially Admin Nutrition: No Artifical Nutrition by Tube POLST Discussed with: Health Care Agent (DPOAHC) . Advanced Care Planning Address: Comfort care Symptom management: Dyspnea Total time 40 minutes; >50% face to face with patient and/or family, providing counselling regarding plans and recommendations, and in care coordination with his/her medical teams. To include contact with family through day and coordination with CM/hospice etc. I also spent an additional [ ] minutes counseling for advanced care planning with the patient/the patients family/the surrogate decision maker. copies to: Tiburcio Bridges DO; Lucien Munguia MD Palliative Brief Note Date of Service Dec 23, 2016 . 86 yo with hx aspiration pneumonia and UTI with underlying PK. Chart reviewed and discussed with Dr. Kia Munguia and patient's daughter Annalise. Deteriorated yesterday with worsened hypoxia and decreased LOC. 3 daughters counseled and their goal is comfort. They discussed antibiotics. She notes he is still making fair amt of urine. 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 O: obtunded, gurgling, NAD, O2 mask on high flow. meds reviewed, no acute distress by pt-comfortable O2 sat 97% no labs later in afternoon-pt now more alert, communicating his needs verbally and engaged with his family. remains on mask O2. MS melara not started Valentine Braxton MD Dec 23, 2016 10:32
--- NOTE | 2016-12-23 10:36 | PCM.PNMED ---
Subjective Date of Service Dec 23, 2016 Subjective Patient is not responsive. He was comfortable overnight. Review of systems and subjective not otherwise obtainable. No overnight events noted. Exam Vital Signs Vital Sign - Last Date Time Temp Pulse Resp B/P Pulse Ox O2 Delivery O2 Flow Rate FiO2 12/23/16 04:00 80 30 98 OxyMask 10.00 12/23/16 03:35 37.0 149/80 12/21/16 16:31 40 Intake and Output 12/22/16 12/22/16 12/23/16 Cumulative From/Thru 15:00 23:00 07:00 12/18/16 13:22 - 12/23/16 06:27 Intake Total 0 ml 592 ml 8600 ml Output Total 520 ml 350 ml 5520 ml Balance -520 ml 242 ml 3080 ml Intake Oral 0 ml 0 ml 150 ml IV Total 592 ml 8450 ml Output Urine Total 520 ml 350 ml 5520 ml # Bowel Movements 0 2 Exam Somnolent and not arousable, no distress. Speaking Anicteric sclera. Lungs are clear with normal rate and effort Heart is regular without murmur gallop or rub Abdomen soft nontender, flat Extremities are free of edema. Skin is free of rash or lesions. Scattered ecchymosis. Normal oral mucosa and no facial droop IVs and Medications Medications Reviewed: Medications were reviewed in detail Lab and Diagnostics Result Diagram: 12/20/16 0320 12/22/16 0912 Assessment & Plan Aspiration pneumonia, POA worsening. The patient's family is moving to a comfort approach. Zosyn was stopped today, with assistance from Dr. Braxton for palliative care. Acute respiratory failure with hypoxia, POA and worsening. The patient remains on oxygen for comfort, anticipated deterioration as pneumonia worsens. Hypernatremia, new and active. The patient started on D5W 2 days ago, we will stop his where moving towards palliative care. Urinary retention, POA and active. Duval catheter was plugged and has now been replaced. 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 Recurrent pyelonephritis associated with indwelling catheter, POA and active . Escherichia coli which is sensitive to ceftriaxone and Zosyn. We will continue Zosyn as we are also treating aspiration pneumonia. Dysphagia, POA and worsening. The patient did meet with Dr. Braxton for palliative care. They are indicated they will likely pursue comfort oriented end-of-life care. This will evolve next 1 or 2 days. There is request for thickened liquids for comfort we will also give medications orally with applesauce. Volume depletion, POA. Improved. Normal saline at 75 per hour. Parkinson's disease, POA and stable. Resume home medications when able. He currently has an [place] patch on. Dementia, POA and stable. Resume usual medications when able. Level of care. Patient is DO NOT RESUSCITATE, DO NOT INTUBATE. Spoke with family this morning and Dr. Braxton. We will be stopping antibiotics and IV fluids and anticipating expiration in the hospital in the very near future. VTE Mechanical Devices: Intermittant Pneumatic CD Resuscitation Status: DNR/DNI:Do Not Resuscitate/Intubate Lucien Munguia MD Dec 23, 2016 10:36
[2016-12-23] MEDS ORDERED: Morphine 100 mg/100 mL NS 100 MG in IV Premix 1 EACH IV SCH (10:40)
--- NOTE | 2016-12-23 11:01 | NUR ---
took over care 11:00am
--- NOTE | 2016-12-23 11:10 | NUR ---
Social Work Note: Multidisciplinary Rounds Pt was discussed in AM rounds today, per MD, pt respiratory status is not improving. Per MD pt prognosis is poor and family meeting taking place today. Pt may transition to comfort care and pass within this hospitalization in the next 24 hours. SW to continue to follow for clarified goals of care and care plan. NAVIN Wood
--- NOTE | 2016-12-23 11:37 | NUR ---
Morphine drip Pt's daughters asking to put pt on morphine drip for comfort. Morphine drip ordered per Doctor Braxton. after hanging morphine drip, pt's family asked to wait on the order as pt seem comfortable and in no apparent distress. Pt's family made aware to call when ready to start morphine drip. Pt's daughters verbalized understanding. Ongoing care.
--- NOTE | 2016-12-23 16:23 | NUR ---
Faxed clinicals to [facility] per WELDING MACHINE OPERATOR/TENDER and MD order
--- NOTE | 2016-12-23 16:30 | NUR ---
Social Work Note: Initial Assessment Data& Assessment: SW met with pt and pt daughter Annalise at bedside to check in and assess for any unmet needs. Donny Bernal is a 86 year old male admitted on 12/18/2016 for sepsis. Pt was at [facility] prior to this hospitalization. Pt does not have HH hx. Pt was previously living on [address] in his home and pt daughter and son lived with him and helped with minimal ADL's. Pt was other magaña independent and ambulated with a walker. Pt does not have LTC insurance or service connection. SW spoke with pt DPOA daughter Ivana via telephone call. Pt daughter Ivana is confident that they would like hospice services for extra support if pt survives this hospitalization, however is unsure if the family would like to take pt home or have him go to SNF. Pt daughter confirmed [facility] would be the preference if pt went to SNF on Hospice. Pt daughter understands this would be private pay and explained money is not a concern for the family. Pt daughter states that she is agreeable for [facility] to begin reviewing pt clinicals and talk with her family tonight about discharge plan pending pt is medically stable for discharge in the next 1-2 days. Pt daughter provided with SMALL EQUIPMENT OPERATOR phone number. Pt family denies any other needs at this time. SW to continue to follow. Plan: Anticipated discharge to [facility] on comfort care pending official acceptance, with Hospice for extra support if pt does not pass during this hospitalization. Pt family denies any other needs at this time. SW to continue to follow. NAVIN Wood Addendum: 12/23/16 at 1638 by VALERIA GOLD Amended: Links added.
--- NOTE | 2016-12-23 18:00 | NUR ---
MORPHINE pt's family still refused morphine drip stating patient "seems comfortable". Morphine wasted with sales representative printing supplies. Ongoing care.
[2016-12-23 20:30] VITALS: O2SAT 89
--- NOTE | 2016-12-24 00:46 | NUR ---
Sats Room air sats 89%. Family feel patient has become less responsive this evening than he was earlier. Still appears to comfortable without signs of pain. Daughter at bedside. Repositioning per patient and family for comfort. IV infiltrated and was restarted in right hand in case IV pain meds are needed.
--- NOTE | 2016-12-24 06:20 | NUR ---
Sats Room air sats 89%. Left arm IV infiltrated and was restarted in right hand. Daughters have been at bedside. No signs of distress noted and pt is being turned and suctioned for comfort per family. Receiving frequent oral care.
--- NOTE | 2016-12-24 08:17 | NUR ---
Palliative care note D/A: Phone call from Tessie to check on progress of pt. Pt discussed in PC rounds. Pt last known to be on 10L oxy mask-Tessie notes that [facility] can provide this and provide up to 15L. PC medical provider felt that pt was doing better yesterday and that SNF/HNW would be appropriate. Yudy Barry to attend rounds and discuss with medical team. P: Palliative care to follow. Michelle DUBON, CCM
[2016-12-24] MEDS: Dextrose 5% 1,000 ML IV SCH (08:26)
--- NOTE | 2016-12-24 08:34 | PCM.PNMED ---
Subjective Date of Service Dec 24, 2016 Subjective Patient is comfortable. He is not responsive now for over 2 days. One daughter is at the bedside. She feels the is comfortable. He is unable to speak. Review of systems and subjective are not obtainable. No overnight events Exam Vital Signs Vital Sign - Last Date Time Temp Pulse Resp B/P Pulse Ox O2 Delivery O2 Flow Rate FiO2 12/23/16 20:30 89 Room Air 12/23/16 04:00 80 30 10.00 12/23/16 03:35 37.0 149/80 12/21/16 16:31 40 Intake and Output 12/23/16 12/23/16 12/24/16 Cumulative From/Thru 15:00 23:00 07:00 12/18/16 13:22 - 12/24/16 06:12 Intake Total 0 ml 0 ml 8600 ml Output Total 550 ml 600 ml 6670 ml Balance -550 ml -600 ml 1930 ml Intake Oral 0 ml 0 ml 150 ml IV Total 8450 ml Output Urine Total 550 ml 600 ml 6670 ml # Bowel Movements 1 3 Exam Comfortable, not speaking. Anicteric sclera. Lungs are clear with tachypnea but normal effort. Heart is regular without murmur gallop or rub Abdomen soft nontender, flat Extremities are free of edema. Skin is free of rash or lesions. Pale skin IVs and Medications Medications Reviewed: Medications were reviewed in detail Lab and Diagnostics Result Diagram: 12/20/16 0320 12/22/16 0912 Assessment & Plan Aspiration pneumonia, POA worsening. The patient's family is moving to a comfort approach. No further antibiotics. The goals are comfort. Patient has deferred initiation of a morphine drip at this point. Acute respiratory failure with hypoxia, POA and worsening. The patient remains on oxygen for comfort, anticipated deterioration as pneumonia worsens. Plan is as above. Hypernatremia, new and active. The patient started on D5W 2 days ago, we will stop his where moving towards palliative care. Urinary retention, POA and active. Duval catheter was plugged and has now been replaced. 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 Recurrent pyelonephritis associated with indwelling catheter, POA and active . Escherichia coli which is sensitive to ceftriaxone and Zosyn. We will continue Zosyn as we are also treating aspiration pneumonia. Dysphagia, POA and worsening. The patient did meet with Dr. Braxton for palliative care. They are indicated they will likely pursue comfort oriented end-of-life care. This will evolve next 1 or 2 days. There is request for thickened liquids for comfort we will also give medications orally with applesauce. Volume depletion, POA. Improved. Normal saline at 75 per hour. Parkinson's disease, POA and stable. Resume home medications when able. He currently has an [place] patch on. Dementia, POA and stable. Resume usual medications when able. Level of care. Patient is DO NOT RESUSCITATE, DO NOT INTUBATE. We will discuss expiration hospital versus at [facility] with palliative care and the family today. VTE Mechanical Devices: Intermittant Pneumatic CD Resuscitation Status: DNR/DNI:Do Not Resuscitate/Intubate Lucien Munguia MD Dec 24, 2016 08:34
[2016-12-24] MEDS ORDERED: Morphine 20 mg/mL Oral Syringe SL/PO PRN (09:10)
--- NOTE | 2016-12-24 09:14 | PCM.PALLBR ---
Palliative Care Recommendation This is an 86-year-old male with a history of Parkinson's and dementia. He recently was admitted with probable aspiration pneumonia as well as urinary tract infection. The patient has a honey thick diet currently and had been doing recently well albeit with decreased by mouth intake until about yesterday. Over the last 24 hours is having productive cough complained of dyspnea becomes somewhat more confused. Palliative Care Team has been consulted to speak with family regarding goals of care. Summary of palliative recommendations: -Symptom management (Pain/other) Continue thickened liquids. Started morphine concentrate 4mg po/SL AC and HS (four times a day) scheduled to prevent pain/SOB, as pt does not ask for pain medicine. Most of his pain is due to muscle stiffness from Parkinson's Disease. Started morphine concentrate 4mg po/SL q 4 hours for breakthrough pain/SOB Agree with continue IV morphine low dose while in hospital, can stop and send out on morphine concentrate when stable to do so per hospitalist. -DPOA/Advanced Directives/POLST - Patient is DNR/DNI, palliative care plan is try to change POLST from limited interventions to comfort care prior to discharge, if Ivana LANG is available at bedside to accomplish this. Otherwise, hospice may need to complete once family at bedside at [facility]. Patient agrees with all this but is really not able to understand options. He does confirm Ivana as his spokesperson. Family is interested in comfort goals/care. -Family/emotional support - Family, all daughters, is very willing to speak with us regarding goals of care, and very pleasant. Ivana (PLACIDO) [phone] [facility] [phone] [facility] [phone] -Spiritual support - Will contact hospital night order selector should family wish for a night order selector visit. Discussion with daughter Ivana-DPOAHC. Discussion with her sisters and all in agreement: no feeding tube-"invasive and not to his benefit" Agree with present treatment but at discharge goal for less aggressive intervention with aim for comfort. Goal is to discharge when medically stable to [facility] with hospice back up. With this in mind- to allow thickened liquids knowing risk of aspiration. Ivana understands this would be to treat sx at [facility] ie to consider antibiotics orally if he again appears to get infection but not to hospitalize etc. Hospice will review with daughter again. Hospice notified of request and they will contact Ivana. Dr. Kia Munguia notified of above discussion. WILL NEED TO DETERMINE NEW PCP SINCE Isis GAMBOA IS NOT HERE ANYMORE. Problems: End of Life Preferences DNR/DNI Goals of Care Discussed with Ivana regarding goals of care including comfort care and the possibility of Hospice. Ivana states she needs to speak with her two sisters before further discussion and decisions can be made. Disposition Hoping for discharge next week to [facility] with hospice --when medically stable Resuscitation Status Resuscitation Status: DNR/DNI:Do Not Resuscitate/Intubate POLST Updates/Changes Artificially Admin Nutrition: No Artifical Nutrition by Tube POLST Discussed with: Health Care Agent (DPOAHC) Total time 35 minutes; >50% face to face with patient and/or family, providing counselling regarding plans and recommendations, and in care coordination with his/her medical teams. I also spent an additional [ ] minutes counseling for advanced care planning with the patient/the patients family/the surrogate decision maker. Palliative Brief Note Date of Service Dec 24, 2016 . 86 yo with hx aspiration pneumonia and UTI with underlying PK. Chart reviewed and discussed with Dr. Kia Munguia and patient's daughter Annalise. Deteriorated yesterday with worsened hypoxia and decreased LOC. 3 daughters counseled and their goal is comfort. They discussed antibiotics. She notes he is still making fair amt of urine. 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 O: more awake, murmuring, some words distinct, NAD, on nasal cannula oxygen. Daughter Annalise at bedside. HEENT: temples emaciated, eyes open, brief eye contact, tries to smile, mouth and lips dry. meds reviewed Lungs decreased breath sounds, clear, heart S1,S2, no skipped beats, steady rrr. Abdomen soft. no labs Laxmi Dash MD Dec 24, 2016 09:14
--- NOTE | 2016-12-24 10:30 | NUR ---
Called [facility] to follow up on referral faxed yesterday, asked her to call me back about accepting patient. Also asked if patient would be able to come to them prior to hospice opening. We are working on a hospice open date but that is still to be determined and patient is likely ready for discharge today. Updated AUTOMATION DESIGN ENGINEER Addendum: 12/24/16 at 1120 by LOWELL SULLIVAN CM Steffi has reviewed the patient and is running this by her administration. She is needing to look at the bed availability and proper place for this patient. They would be able to accept prior to Hospice opening. Updated AUTOMATION DESIGN ENGINEER Addendum: 12/24/16 at 1252 by LOWELL SULLIVAN CM [facility] is able to accept patient on 12/25/16, she is needing PASRR today and would also like to see all discharge medications before tomorrow morning. They are also asking for an fitter/welder discharge. Updated AUTOMATION DESIGN ENGINEER
[2016-12-24] MEDS: Morphine 20 mg/mL Oral Syringe SL/PO SCH ×3 (11:11→22:44)
--- NOTE | 2016-12-24 12:06 | NUR ---
Social Work Note: Continued Discharge Planning/Multidisciplinary Rounds Data& Assessment: Pt was discussed in AM rounds, per MD pt is medically stable. BUILDING COORDINATOR has had multiple conversations with pt DPOA/Daughter Ivana regarding the Discharge Plan. Referral has been sent to [facility] per pt family request and MD order. [facility] is reviewing pt for private pay admit with Hospice to open. Per Cara with Hospice, they are able to open with pt as soon as tomorrow (Friday) vs. this if we do not here back from [facility] with their final decision by this afternoon. Pt daughter had questions about pt insurance coverage for this hospitalization now that pt is on comfort care. SW and pt daughter discussed pt not being able to receive the same level of care he requires at this time outside of the hospital until we have an accepting SNF. Hospice opening date is unclear at this point as well. Pt has continued IV medications and pain management at this time as well. Pt daughter denies any other needs. SW to continue to follow. Plan: Anticipated discharge to [facility] pending acceptance with Hospice to open at a later time. Pt daughter denies any other needs. SW to continue to follow. NAVIN Wood
--- NOTE | 2016-12-24 12:19 | NUR ---
Palliative care note D/A: Case discussed today in PC rounds. PC is recommending dc with SNF/[facility] as pt is eligible for dc. Family has had info visit outpt as they are fully aware of hospice services having just worked with agency during recent of pt spouse. Unclear when [facility] can open pt. CLEANING MANAGER working with [facility]. Another pt that PC working with is felt to be comfort care in acute care and had been scheduled in for an open on 12/25/16. This spot is now potentially open. Discuss with Tessie to ascertain if possible for Mr. Bernal to take this slot. Discuss with Ayesha CORONAW, dcp to note may be eligible for Wed open. Ayesha to call [facility]. Phone call received from Steffi at [facility] to inquire about pt eligibility for hospice. (Steffi had initially called Tessie/SID to discuss, but who did not have accurate pt information, referred Steffi to this worker.) Discussed going to a SNF on hospice and how this might work. Clarified that family wants hospice services and pt is eligible and that inquiry had been made to see if pt can come and admit to [facility] prior to hospice start of services, which would only mean a matter of a few days, at most. Noted that hospice start date is being planned and may be able to be soon. Strongly encouraged Steffi to call CM dept to discuss further. She indicated she would discuss further with Geoff. P: Palliative care to follow. Michelle LOCKHARTSW, [facility] Addendum: 12/24/16 at 1430 by DAMARIS CAMPBELL PC note amendment D/A: Phone message from Tessie at [facility]. She indicates that pt will most likely dc on 12/25/16 and agency would like to have him leave at 1130. [facility] will open at between 1300 and 1400. Tessie has communicated that pt is on 10 L O2 and that [facility] may need to arrive to set up O2 prior to pt arrival. Dr. Dash aware of above and is planning on working on POLST with decision maker dtr on , prior to dc. P: Palliative care to follow. Michelle Campbell [facility], CCM
--- NOTE | 2016-12-24 17:32 | NUR ---
Comfort/Morphine Patient dozing intermittently throughout the shift, appears comfortable but occassionally restless. Morphine po started, patient marcelo well. Turned q 3-4 hrs per patient request. Duval patent, dark omar uop, mepilex inplace on buttock. Redness in bilat groins, cleansed and calmoseptine applied. Family at bedside and very supportive of patient.
[2016-12-24 19:40] VITALS: PULSE 68; O2SAT 90
[2016-12-24 22:45] VITALS: PULSE 64; RESP 18; O2SAT 92
[2016-12-25] MEDS: Dextrose 5% 1,000 ML IV SCH (00:35)
[2016-12-25 04:27] VITALS: PULSE 74; RESP 17; O2SAT 90
--- NOTE | 2016-12-25 05:08 | NUR ---
Comfort care Morphine given IV prn for c/o discomfort/slight restlessness. Pt sleeping after dose of scheduled Roxanol and prn Morphine IV. No vitals sign done as requested by daughters at bedside. Family allowed just 02sat checks. Pt comfortable after dose of Morphine given. Pt refused to turn at times and family prefers to leave him comfortable on his back at times tonight. Turn per comfort only.
--- NOTE | 2016-12-25 07:59 | NUR ---
Social Work Note: Continued Discharge Planning Data& Assessment: Pending pt being medically stable for transport, pt anticipated discharge today by 11:30a.m via BLS to [facility] who has accepted pt and with Hospice to open between 1-2:00p.m. today. Delivery of oxygen concentrator to be delivered to SNF this morning. MD, pt daughter Ivana and Dary notified. Pt daughter Ivana/SWAPNA confirmed understanding that at this time pt meets criteria for BLS transportation, however If for some reason Medicare does not agree, pt family would be responsible for the transportation bill. Pt family denies any other needs. All updated and agreeable to plan. Plan: Anticipated discharge to [facility] pending medical stability for transport, with Hospice to open today between 1-2:00p.m. Pt family denies any other needs. All updated and agreeable to plan. NAVIN Wood
[2016-12-25 09:00] VITALS: RESP 16
[2016-12-25] MEDS: Morphine 20 mg/mL Oral Syringe SL/PO SCH (09:12)
--- NOTE | 2016-12-25 09:19 | PCM.PALLBR ---
Palliative Care Recommendation This is an 86-year-old male with a history of Parkinson's and dementia. He recently was admitted with probable aspiration pneumonia as well as urinary tract infection. The patient has a honey thick diet currently and had been doing recently well albeit with decreased by mouth intake until the last several days. Palliative Care Team has been consulted to speak with family regarding goals of care. Summary of palliative recommendations: 12/25: Prognosis: After examining patient today, I believe he will live only 1-3 more days. I, Dr. Dash, shared this information with daughter Annalise on morning rounds today. Symptom management (Pain/other) No longer taking any po food, sometimes accepts moistened swabs. Continue morphine concentrate 4mg po/SL AC and HS (four times a day) scheduled to prevent pain/SOB, as pt does not ask for pain medicine. Most of his pain is due to muscle stiffness from Parkinson's Disease. Continue morphine concentrate 4mg po/SL q 4 hours for breakthrough pain/SOB Agree with continue IV morphine low dose while in hospital, can stop and discharge/transfer on morphine concentrate when bed available at [facility]. Consider d/c IV access prior to transfer. DPOA/Advanced Directives/POLST - Patient is DNR/DNI, palliative care plan is try to change POLST from limited interventions to comfort care prior to discharge, if Ivana HCPOA is available at bedside to accomplish this. However, Annalise reports that Ivana will not be here all day today 12/25, so Dr. Dash filled out POLST for comfort care and explained where Ivana needs to sign. When Annalise meets Ivana at [facility] later today, she will give her the POLST to sign and hospice can make a copy for their records. Meds reviewed with Annalise, no changes in dosing today. Family/emotional support - Family, all daughters, is very willing to speak with us regarding goals of care, and very pleasant. Ivana (POA) [phone]. Patient no longer able to understand options due to decreased LOC. Earlier both he and Annalise confirmed that Ivana is his HCPOA. [facility] - [phone] Annalise - [phone] Spiritual support - not needed by family. Dr. Braxton held prior discussion with silvia Heath-DPOAHC and her sisters and all in agreement: no feeding tube-"invasive and not to his benefit" Goal is to discharge when medically stable to [facility] with hospice back up. With this in mind- to allow thickened liquids knowing risk of aspiration. Ivana understands this would be to treat sx at [facility] ie to consider antibiotics orally if he again appears to get infection but not to hospitalize etc. Problems: End of Life Preferences DNR/DNI Goals of Care Discussed with Ivana regarding goals of care including comfort care and the possibility of Hospice. Ivana states she needs to speak with her two sisters before further discussion and decisions can be made. Disposition Hoping for discharge next week to [facility] with hospice --when medically stable Resuscitation Status Resuscitation Status: DNR/DNI:Do Not Resuscitate/Intubate POLST Updates/Changes Previous POLST?: Yes POLST Last Review Date: Dec 25, 2016 Antibiotics: No Antibiotics Artificially Admin Nutrition: No Artifical Nutrition by Tube POLST Discussed with: Spouse/Other (daughter Annalise, as [facility] Ivana will not be visiting hospital today before pt transfers to [facility]) POLST Review Outcome: New Form Completed (new form created and signed by Dr. Dash, needs to be reviewed and signed by PLACIDO Heath at [facility] later today) . Advanced Care Planning Address: POLST Total time 15 minutes; >50% face to face with patient and/or family, providing counselling regarding plans and recommendations, and in care coordination with his/her medical teams. I also spent an additional 30 minutes counseling for advanced care planning with the patient/the patients family/the surrogate decision maker. Palliative Brief Note Date of Service Dec 25, 2016 . 86 yo with hx aspiration pneumonia and UTI with underlying Parkinson's Disease ( >10yrs). Discussed pt's comfort overnight with his daughter Annalise at bedside. She said he has been comfortable and just recently began to breathe more shallowly and seemed somewhat more restless. Annalise works in [employer] and is a research instrumentation technician and is accustomed to medical technology. O: somnolent, murmuring, but language unclear now. NAD, on room air. HEENT: temples emaciated, eyes flutter open, no tracking, mouth and lips dry. Smiles when Annalise washes his face. Lungs decreased breath sounds, clear, heart S1,S2, no skipped beats, irregularly irregular. Abdomen soft. no labs recently. Laxmi Dash MD Dec 25, 2016 09:19
[2016-12-25] MEDS ORDERED: MORP100S5 SL/PO (10:00)
--- NOTE | 2016-12-25 10:05 | PCM.DIMED ---
Discharge Instructions Date of Service Dec 25, 2016 Dates of Hospitalization Dec 18, 2016 at 16:51 Discharge Diagnosis Discharge Diagnosis Dementia Parkinsons Disease Dehydration Hypernatremia Aspiration Pneumonia Acute Respiratory Failure with hypoxia Urinary retention Acute pyelonephritis Medication Instructions Additional med instructions Morphine syrup for dyspnea, respiratory distress, pain or agitation. Other medications only as needed for comfort. Diet Discharge Diet: Other (honey thick as tolerated) Patient Instructions Follow-up plan Discharge to [facility] with Hospice Care Follow-up Provider: Shayla Go Follow-up with PCP in: Other (as needed) Peter Venegas MD Dec 25, 2016 10:05
--- NOTE | 2016-12-25 10:19 | NUR ---
Care Home Transfer: [facility] is transporting BLS patient to [facility] at 1130 AM. Patient is going to open with hospice this afternoon. Faxed orders and placed copy on chart. Updated PRECISION MACHINIST
--- NOTE | 2016-12-25 11:46 | NUR ---
Discharge Pt received scheduled Roxanol this AM and then PRN liquid morphine prior to discharging. Respiratory rate 16/min and labored. Pt was given a bed bath by the CNAs. Paperwork was filled out and sent with transport. Report was called in to the receiving RN at the facility.
--- NOTE | 2016-12-25 13:34 | NUR ---
Social Work Note: Discharge/Multidisciplinary Rounds Data& Assessment: Pt was discussed in AM rounds today, per pt is medically stable for transport and discharge to [facility] private pay via BLS with Hospice to open between 1-2:00p.m. today. Delivery of oxygen concentrator was delivered to SNF this morning. MD, pt daughter Ivana and Dary notified. Pt daughter Ivana/DPOA confirmed understanding that at this time pt meets criteria for BLS transportation, however If for some reason Medicare does not agree, pt family would be responsible for the transportation bill. Pt family denies any other needs. All updated and agreeable to plan. Marianna updated. , RN, pt family all updated and agreeable to plan. Plan: Per pt is medically ready to discharge to [facility] private pay via BLS with Hospice to open today between 1-2:00p.m. Pt family denies any other needs. All updated and agreeable to plan. NAVIN Wood
--- NOTE | 2016-12-25 19:36 | PCM.DC.MED ---
Discharge Summary Date of Service Dec 25, 2016 Dates of Hospitalization Date of Hospital Admission Dec 18, 2016 at 16:51 Date of Discharge: Dec 25, 2016 Providers: Admitting Physician: Lucien Munguia MD Primary Care Physician: Shayla Go Attending Physician: Andrew Martinez MD Diagnosis at Time of Discharge Diagnosis at Time of Discharge Dementia Parkinsons Disease Dehydration Hypernatremia Aspiration Pneumonia Acute Respiratory Failure with hypoxia Urinary retention Acute pyelonephritis Consultations Palliative care, Dr. Valentine Braxton, Dr. Laxmi He 12/25: Prognosis: After examining patient today, I believe he will live only 1-3 more days. I, Dr. Dash, shared this information with daughter Annalise on morning rounds today. Symptom management (Pain/other) No longer taking any po food, sometimes accepts moistened swabs. Continue morphine concentrate 4mg po/SL AC and HS (four times a day) scheduled to prevent pain/SOB, as pt does not ask for pain medicine. Most of his pain is due to muscle stiffness from Parkinson's Disease. Continue morphine concentrate 4mg po/SL q 4 hours for breakthrough pain/SOB Agree with continue IV morphine low dose while in hospital, can stop and discharge/transfer on morphine concentrate when bed available at [facility]. Consider d/c IV access prior to transfer. DPOA/Advanced Directives/POLST - Patient is DNR/DNI, palliative care plan is try to change POLST from limited interventions to comfort care prior to discharge, if Ivana HCPOA is available at bedside to accomplish this. However, Annalise reports that Ivana will not be here all day today 12/25, so Dr. Dash filled out POLST for comfort care and explained where Ivana needs to sign. When Annalise meets Ivana at [facility] later today, she will give her the POLST to sign and hospice can make a copy for their records. Meds reviewed with Annalise, no changes in dosing today. Family/emotional support - Family, all daughters, is very willing to speak with us regarding goals of care, and very pleasant. Ivana (POA) [phone]. Patient no longer able to understand options due to decreased LOC. Earlier both he and Annalise confirmed that Ivana is his HCPOA. [facility] - [phone] Annalise - [phone] Spiritual support - not needed by family. Dr. Braxton held prior discussion with daughter Ivana-DPOA and her sisters and all in agreement: no feeding tube-"invasive and not to his benefit" Goal is to discharge when medically stable to [facility] with hospice back up. With this in mind- to allow thickened liquids knowing risk of aspiration. Ivana understands this would be to treat sx at [facility] ie to consider antibiotics orally if he again appears to get infection but not to hospitalize etc. . Procedures XRay, CTs & MRIs PROCEDURE: X-RAY CHEST ONE VIEW, PORTABLE ([id number]) IMPRESSION: Increased interstitial infiltrates in right lung and left basilar consolidation. Dictated by: Rao Garcia M.D. on 12/18/2016 at 14:12 . Brief History History of Present Illness (per admission note): 86-year-old gentleman with history of urinary retention requiring Duval catheter. History is taken almost exclusively from his daughter in conjunction with review of his chart. His daughter states that he has UTIs approximately every month and they are associated with altered mental status more gait instability. They have home health nurse who comes by her house and changes his catheter every 3 weeks. His usual baseline is walking with a walker eats soft pured diet but able to drink 16 ounces glasses of water 3 of them over the day. He is able to feed himself and get himself to the bathroom most of the time. He sleeps a lot daytime also sleeps well at night. He has been cared for by his daughter and her over the past year. They moved into her parents house to care for both of them aging and medical issues. Her mother in July with the assistance of hospice. Ivana does not think this made much of additional friends for her father and that he tends to forget that his is gone. He does have moderate dementia. 4 weeks ago he had UTI and pneumonia was hospitalized and she was hoping he would improve with rehabilitation so agreed to time at [facility]. He initially improved for about the first week then started to decline again taking in only 400 mL of fluid in the day and becoming weaker. This prompted his recent admission again with diagnosis of pneumonia and UTI as well as probably plugged Duval catheter. He has continued to lose weight with a 10 pound decline now at 158 over the past 6 weeks. He seems to have no complaints of pain. He does have chronic constipation and known Parkinson's. He has not had any of his Parkinson's medication since admission. She states at baseline he is very stiff . Hospital Course Aspiration pneumonia, POA , ongoing. The patient's family has elected hospice care. No further antibiotics. The goals are comfort. . Acute respiratory failure with hypoxia, POA , ongoing. The patient remains on oxygen for comfort, anticipated deterioration as pneumonia worsens. Plan is as above. Hypernatremia, new and active. Dehydration related. Treated with the D5W. This was discontinued in the context of comfort care Urinary retention, POA and active. Duval catheter was plugged and has now been replaced. Will leave for reasons of comfort Recurrent pyelonephritis associated with indwelling catheter, POA and active . Escherichia coli which is sensitive to ceftriaxone and Zosyn. Treated, and discontinued at time of discharge. Dysphagia, POA and worsening. The patient did meet with Dr. Braxton for palliative care. There is request for thickened liquids for comfort we will also give medications orally with applesauce. The patient was not able to take any oral intake safely at time of discharge Volume depletion, POA. Treated with Normal saline at 75 per hour. This was discontinued in the setting of comfort care Parkinson's disease, POA and stable. Resume home medications if he becomes able. Dementia, POA and stable. Medications discontinued Level of care. Discharge to hospice care at [facility]. Patient is DO NOT RESUSCITATE, DO NOT INTUBATE. Exam Vital Signs (Last) Date Time Temp Pulse Resp B/P Pulse Ox O2 Delivery O2 Flow Rate FiO2 12/25/16 04:27 74 17 90 Room Air 12/23/16 04:00 10.00 12/23/16 03:35 37.0 149/80 12/21/16 16:31 40 Exam General: Elderly man only intermittently with eyes open and minimal verbal responses, otherwise no acute distress HEENT: sclerae anicteric, oral mucosa moist, slight hoarseness, mouth breathing with dry mucosa Neck: no JVD Chest: clear to auscultation Cardiac: S1S2, regular Abdomen: Scaphoid, BS present Extremities: No pitting edema Neuro: Eyes open every few minutes not really responding to questions, cranial nerves generally symmetric, increased motor tone, unable to cooperate with coordination exam Test 12/18/16 13:40 7/19/17 14:08 12/18/16 21:38 12/19/16 03:45 Hemoglobin A1c 5.4% (4.8-5.6) Magnesium Level 2.0mg/dL (1.6-2.6) Troponin T < 0.010ug/L (0.0-0.011) Pro-B-Type Natriuretic Peptide 2721pg/mL (0-486) Urine Color Dark yellow (YELLOW) Urine Appearance Turbid (CLEAR,HAZY) Urine pH 6.0 (5.0-8.0) Urine Specific [place] 1.020 (1.003-1.035) Urine Protein >300mg/dL (NEG,TRACE) Urine Glucose (UA) Negativemg/dL (NEGATIVE) Urine Ketones Tracemg/dL (NEGATIVE) Urine Occult Blood Large (NEGATIVE) Urine Nitrite Positive (NEGATIVE) Urine Bilirubin Negative (NEGATIVE) Urine Urobilinogen Normalmg/dL (NORMAL) Urine Leukocyte Esterase Large (NEGATIVE) Urine RBC 0-2/hpf (0-2) Urine WBC Packed/hpf (0-5) Urine Epithelial Cells Occasional/hpf (NONE-MOD) Urine Crystals None seen (NONE SEEN) Urine Bacteria Many/hpf (NONE-FEW) Urine Hyaline Casts None/lpf (NONE) Urine Granular Casts None seen (NONE SEEN) Urine Waxy Casts None seen (NONE SEEN) Urine Red Blood Cell Casts None seen (NONE SEEN) Urine White Blood Cell Casts None seen (NONE SEEN) Urine Mucus None seen (None Seen) Urine Trichomonas None seen (NONE SEEN) Urine Yeast None (NONE SEEN) Urinalysis Comment None Urine Culture Reflexed Indicated Lactic Acid Level 1.9mmol/L (0.4-2.0) Neutrophils (%) (Auto) 93% (40-74) Lymphocytes (%) (Auto) 3% (14-46) Monocytes (%) (Auto) 4% (4-12) Eosinophils (%) (Auto) 0% (0-5) Basophils (%) (Auto) 0% (0-3) Total Bilirubin 0.6mg/dL (0.0-1.2) Aspartate Amino Transf (AST/SGOT) 23U/L (0-50) Alanine Aminotransferase (ALT/SGPT) 6U/L (0-44) Alkaline Phosphatase 58U/L (25-160) Total Protein 5.5g/dL (6.4-8.4) Albumin 2.2g/dL (3.4-5.0) Test 12/20/16 03:20 12/21/16 02:55 12/22/16 09:12 White Blood Count 14.7th/mm3 (3.8-10.1) Red Blood Count 3.07mil/mm3 (4.40-5.80) Hemoglobin 9.4g/dL (13.8-17.2) Hematocrit 28.8% (41.0-50.0) Mean Corpuscular Volume 93.8fL (81-100) Mean Corpuscular Hemoglobin 30.6pg (27.0-35.0) Mean Corpuscular Hemoglobin Concent 32.6% (32.0-37.0) Red Cell Distribution Width 14.8% (12.3-15.4) Platelet Count 352bil/L (150-400) Procalcitonin 1.68ng/mL (0.00-0.08) Sodium Level 145mEq/L (134-144) Potassium Level 3.1mEq/L (3.5-5.2) Chloride Level 110mEq/L (97-108) Carbon Dioxide Level 23mmol/L (18-29) Blood Urea Nitrogen 20mg/dL (8-27) Creatinine 0.52mg/dL (0.76-1.27) Estimat Glomerular Filtration Rate 160mL/min (>59) Glucose Level 138mg/dL (60-99) Calcium Level 7.8mg/dL (8.5-10.1) Discharge Medications Discharge Medications Carbidopa/Levodopa 25-100 mg (Carbidopa/Levodopa 25-100 mg) 1 Each Tablet 1 TABLET PO BID in AM and 1400 (Reported) Carbidopa/Levodopa 25-100 mg (Carbidopa/Levodopa 25-100 mg) 1 Each Tablet 2 TABLET PO daily at 1800 (Reported) Entacapone (Entacapone) 200 Mg Tablet 200 MG PO BID AM and 1400 (Reported) Ipratropium/Albuterol Sulfate (Iprat-Albut 0.5-3(2.5) mg/3 mL Inhalant Soln) 3 Ml Ampul.neb 3 ML NEB Q6 Prescribed by: VIOLET LYNN MD Morphine Sulfate Oral Concentrate (Roxanol Oral Concentrate) 100 Mg/5 Ml (20 Mg/ Ml) Solution 4 MG SL/PO [facility]HS Prescribed by: ANDREW MARTINEZ MD Quetiapine Fumarate (Seroquel) 25 Mg Tablet 75 MG PO HS (Reported) Sennosides (Senna) 8.6 Mg Tablet 25.8 MG PO QAM (Reported) As needed Acetaminophen (Acetaminophen) 325 Mg Tablet 1-2 EACH PO Q4H PRN PRN For Pain ( Reported) Oxybutynin Chloride ER (Oxybutynin Chloride ER) 5 Mg Tab.er.24 5 MG PO DAILY PRN PRN BLADDER SPASM (Reported) Additional med instructions Morphine syrup for dyspnea, respiratory distress, pain or agitation. Other medications only as needed for comfort. Followup Plan Follow-up plan Discharge to [facility] with Hospice Care Discharge Diet: Other (honey thick as tolerated) Follow-up Provider: Shayla Go Follow-up with PCP in: Other (as needed) Time spent 35 minutes copies to: Shayla Go Jeffrey W MD Dec 25, 2016 10:06
== END 2016-12-25 11:42 | DRG 189 ==
LOC: EDUNIT# 13:05 → SED 13:05 → EDBD 13:05 → PCC 16:51
PROVIDERS: ADMIT Hospitalist; ATTEND Internal Medicine
PROC: 0T2BX0Z Change Drainage Device in Bladder, External Approach (ICD-10-PCS; principal; 2016-12-18)
DX: J96.01 Acute respiratory failure with hypoxia (principal); J69.0 Pneumonitis due to inhalation of food and vomit; N10 Acute pyelonephritis; T83.518A Infection and inflammatory reaction due to other urinary catheter, initial encounter; E87.0 Hyperosmolality and hypernatremia; J96.02 Acute respiratory failure with hypercapnia; R33.9 Retention of urine, unspecified; E86.0 Dehydration; G20 Parkinson's disease; F02.80 Dementia in other diseases classified elsewhere, unspecified severity, without behavioral disturbance, psychotic disturbance, mood disturbance, and anxiety; Z87.891 Personal history of nicotine dependence; Z66 Do not resuscitate; Z51.5 Encounter for palliative care; R13.10 Dysphagia, unspecified; E86.9 Volume depletion, unspecified; B96.20 Unspecified Escherichia coli [E. coli] as the cause of diseases classified elsewhere; Z16.24 Resistance to multiple antibiotics